=== PATIENT | female | born 1975 | race Two or more races ===

== ENCOUNTER 2020-07-16 08:28 | Outpatient (REF) | payer MEDICARE, SELFPAY ==
[2020-07-16 12:17] LABS: Influenza A PCR NEGATIVE (Negative); Influenza B PCR NEGATIVE (Negative); Resp Syncy Virus RNA Qual PCR NEGATIVE (Negative); SARS COV2 PCR INHOUSE NEGATIVE (Negative)
== END 2020-07-16 08:29 | disposition home or self-care (01) ==
LOC: HO.LAB 08:28
PROVIDERS: Visit Provider Nurse Practitioner Family
DX: R05 Cough (principal); Z20.828 Contact with and (suspected) exposure to other viral communicable diseases
CPT/HCPCS: 0241U

== ENCOUNTER 2020-07-16 08:36 | Outpatient (REF) | payer MEDICARE, SELFPAY ==
--- NOTE | 2020-07-16 08:40 | XR_ITS ---
EXAMINATION: XR CHEST CLINICAL INFORMATION: Cough. COMPARISON: Chest radiographs dated 06/04/2017. TECHNIQUE: 2 views of the chest were obtained. FINDINGS: No significant abnormality is noted involving the heart, lungs, mediastinum, bony thorax or soft tissues. XR/XR chest 2V IMPRESSION: No acute cardiopulmonary process.
== END 2020-07-16 08:37 | disposition home or self-care (01) ==
LOC: HO.HMGCX 08:36
PROVIDERS: PCP Internal Medicine; Visit Provider Nurse Practitioner Family
DX: R05 Cough (principal)
CPT/HCPCS: 71046

== ENCOUNTER 2020-10-02 15:52 | Outpatient (REF) | payer MEDICARE, SELFPAY ==
--- NOTE | 2020-10-02 17:40 | PFT_ITS ---
Forced vital capacity, FEV1, [id number], and MVV are all normal. Post bronchodilator therapy, there is no significant change. Total lung capacity and residual volume normal. Diffusion capacity normal. CONCLUSION: Normal pulmonary function test. MD MELODIE Smith/[facility] / [id number]
== END 2020-10-02 15:53 | disposition home or self-care (01) ==
LOC: HO.RESP 15:52
PROVIDERS: PCP Internal Medicine; Visit Provider Internal Medicine
DX: R05 Cough (principal)
CPT/HCPCS: 94060; 94727; 94729

== ENCOUNTER 2020-10-16 12:55 | Outpatient (REF) | payer OTHER, SELFPAY ==
--- NOTE | 2020-10-16 | PFT_ITS ---
SPIROMETRY: FEV1 of 104% of predicted at 2.99 L. FVC 91% of predicted at 3.21 L. FEV1 to FVC ratio of 0.93. No bronchodilator response. METHACHOLINE CHALLENGE TEST: The patient had no significant change in FEV1 over the whole range of administered concentration of methacholine. IMPRESSION: Normal spirometry with no bronchodilator response. Negative methacholine challenge test. MD RON Harden/[facility] / [id number]
== END 2020-10-16 12:56 | disposition home or self-care (01) ==
LOC: HO.RESP 12:55
PROVIDERS: PCP Internal Medicine; Visit Provider Hospitalist
DX: R05 Cough (principal)
CPT/HCPCS: 94070

== ENCOUNTER 2022-05-31 14:06 | Outpatient (REF) | payer OTHER, SELFPAY ==
[2022-06-03 08:57] LABS: HPV mRNA E6/E7 rflx Not Detected (Not Detected)
== END 2022-05-31 14:07 | disposition home or self-care (01) ==
LOC: HO.LNP 14:06
PROVIDERS: Visit Provider Internal Medicine
DX: Z01.419 Encounter for gynecological examination (general) (routine) without abnormal findings (principal); E66.9 Obesity, unspecified
CPT/HCPCS: 87624; 88142

== ENCOUNTER 2022-06-18 15:40 | Outpatient (REF) | payer OTHER, SELFPAY ==
--- NOTE | ~2022-06-18 | MM_ITS ---
EXAMINATION: MM SCREENING DIGITAL BREAST TOMOSYNTHESIS, BILATERAL CLINICAL INFORMATION: Screening. Asymptomatic. No known family history breast cancer. Age 47. No prior breast imaging. The lifetime risk of breast cancer based on the Tyrer-Cuzick Model is 11%. COMPARISON: None (current study represents initial baseline exam). TECHNIQUE: Digital breast tomosynthesis is performed in both the craniocaudal and mediolateral oblique views along with computer-aided detection (CAD). Synthesized 2D images are generated from the tomosynthesis. FINDINGS: There are scattered areas of fibroglandular density (ACR BI-RADS breast composition Category b). Breast tissue composition borders on heterogeneously dense. There is fine fibronodular parenchymal pattern. No significant mass. No architectural abnormality or abnormal calcifications. The axilla and skin contours are unremarkable. MM/MM tomosynthesis screening BI IMPRESSION: No mammographic evidence of malignancy. ASSESSMENT: BI-RADS 2: Benign RECOMMENDATION: Routine annual mammography screening. This patient's information was entered into a reminder system with a target due date for their next mammogram.
== END 2022-06-18 15:41 | disposition home or self-care (01) ==
LOC: HO.MAMMO 15:40
PROVIDERS: PCP Internal Medicine; Visit Provider Internal Medicine
DX: Z12.31 Encounter for screening mammogram for malignant neoplasm of breast (principal)
CPT/HCPCS: 77063; 77067

== ENCOUNTER 2022-08-12 08:46 | Outpatient (REF) | payer OTHER, SELFPAY ==
[2022-08-12 11:31] LABS: MANUAL DIFF FLAG NO
[2022-08-12 11:45] LABS: Basophils Absolute Auto 0.1 X10*3/uL (0.0-0.2); Basophils Percent Auto 0.6 % (0-2); Eosinophils Absolute Auto 0.2 X10*3/uL (0.0-0.4); Eosinophils Percent Auto 2.5 % (0-4); Hematocrit 41.3 % (37.0-47.0); Hemoglobin 13.3 g/dl (12.0-16.0); Imm Gran Abs Auto 0.03 X10*3/uL (0.00-0.03); Imm Gran Pct Auto 0.3 % (0.0-0.4); Lymphocytes Absolute Auto 3.1 X10*3/uL (1.2-4.9); Lymphocytes Percent Auto 34.8 % (20-40); Mean Corpuscular HGB Conc 32.2 g/dl (31.0-35.0); Mean Corpuscular Hemoglobin 26.5 pg (27.0-33.0); Mean Corpuscular Volume 82.4 fL (80.0-98.0); Mean Platelet Volume 9.7 fL (9.4-12.3); Monocytes Absolute Auto 0.4 X10*3/uL (0.1-1.2); Monocytes Percent Auto 4.4 % (2-11); Neutrophils Absolute Auto 5.1 x10*3/uL (2.0-8.3); Neutrophils Percent Auto 57.4 % (45-73); Platelet Count 308 X10*3/uL (160-400); Red Blood Count 5.01 X10*6/uL (4.20-5.50); Red Cell Distribution Width 14.6 % (11.0-16.0); White Blood Count 8.9 X10*3/uL (4.8-10.8)
[2022-08-12 12:18] LABS: Alanine Aminotransferase 103 U/L (0-31); Anion Gap 11 (12-20); Aspartate Amino Transferase 98 U/L (5-31); Blood Urea Nitrogen 9 mg/dL (9-16); Calcium 9.1 mg/dL (8.4-10.2); Carbon Dioxide 27 mmol/L (22-29); Chloride 106 mmol/L (96-108); Cholesterol 188 mg/dL; Estimated Glomerular Filt Rate > 60; Glucose Fasting 115 mg/dL (60-99); HDL Cholesterol 36 mg/dL; LDL Cholesterol Calculated 129 mg/dl; Potassium 3.9 mmol/L (3.3-5.1); Sodium 140 mmol/L (135-145); Triglycerides 118 mg/dL; Vitamin D 25-OH Total 15.6 ng/mL (>30)
== END 2022-08-12 08:47 | disposition home or self-care (01) ==
LOC: HO.HMGCLDS 08:46
PROVIDERS: PCP Internal Medicine; Visit Provider Internal Medicine
DX: Z00.01 Encounter for general adult medical examination with abnormal findings (principal); E66.9 Obesity, unspecified
CPT/HCPCS: 36415; 80048; 80061; 82306; 84450; 84460; 85025

== ENCOUNTER 2022-08-24 14:35 | Emergency (ER) | payer OTHER, SELFPAY ==
--- NOTE | ~2022-08-24 | US_ITS ---
EXAMINATION: US ABDOMEN COMPLETE CLINICAL INFORMATION: Right upper and lower quadrant pain. Bladder pressure.. COMPARISON: CT from 05/19/2015 TECHNIQUE: Real-time imaging of the abdominal viscera. FINDINGS: PANCREAS: The pancreatic head is unremarkable. The body and tail are obscured by gas. ABDOMINAL AORTA: The proximal, mid, and distal segments are normal in caliber. INFERIOR VENA CAVA: Visualized portions are normal. LIVER: The liver is normal in size. The liver contour is normal. There is diffuse increased liver parenchymal echogenicity, consistent with hepatic steatosis. No focal hepatic lesion. There is no intrahepatic biliary duct dilatation seen. GALLBLADDER: The gallbladder is likely stone filled. No wall thickening or pericholecystic fluid. COMMON BILE DUCT: Normal in caliber measuring 0.6 cm in diameter. RIGHT KIDNEY: Normal. No hydronephrosis. No renal calculi or focal parenchymal lesions. The kidney measures 11.8 cm in maximum dimension. LEFT KIDNEY: Normal. No hydronephrosis. No renal calculi or focal parenchymal lesions. The kidney measures 11.2 cm in maximum dimension. SPLEEN: Normal. The spleen measures 10.3 cm in maximum dimension. FREE FLUID: None. US/US abdomen complete IMPRESSION: 1. Hepatic steatosis. 2. Stone filled gallbladder. No inflammatory changes of the gallbladder.
[2022-08-24 14:54] VITALS: BP 144/98; PULSE 88; RESP 20; TEMP 36.7; O2SAT 100; BMI 37.3
--- NOTE | 2022-08-24 14:55 | ED.FEMALEGU ---
HPI - Female Genitourinary General Chief complaint: General Medical <Mary Espinosa CNP - Last Filed: 08/24/22 14:59> Stated complaint: bladder issue <Mary Espinosa CNP - Last Filed: 08/24/22 14:59> Time Seen by Provider: 08/24/22 16:57 <Mary Espinosa CNP - Last Filed: 08/24/22 14:59> Source: patient <SIOBHAN Wilder - Last Filed: 08/24/22 17:36> Mode of arrival: ambulatory <SIOBHAN Wilder - Last Filed: 08/24/22 17:36> Limitations: no limitations <SIOBHAN Wilder Last Filed: 08/24/22 17:36> History of Present Illness HPI Narrative: Patient is a 47 year old assigned female at with no reported medical history presenting to the emergency department today with pain with urination and lower abdominal pain. Patient states that she has been having lower abdominal pain and pain with urination for the last few days. Patient denies any dizziness, lightheadedness, nausea, vomiting, fever, chills, blurry vision, double vision, loss of vision, chest pain, difficulty breathing, shortness of breath, back pain, night sweats, increased urinary frequency, increased urinary urgency, blood in her urine or stool, syncope or a near syncopal episode, recent trauma or falls, bowel incontinence, bladder incontinence, bowel retention, bladder retention, or any other complaints at this time. <SIOBHAN Wilder - Last Filed: 08/24/22 17:36> MD elicited complaint: dysuria <SIOBHAN Wilder - Last Filed: 08/24/22 17:36> Onset (ago): day(s) <SIOBHAN Wilder - Last Filed: 08/24/22 17:36> Severity: mild <SIOBHAN Wilder Last Filed: 08/24/22 17:36> Severity scale (1-10): 2 <SIOBHAN Wilder Last Filed: 08/24/22 17:36> Vaginal discharge: none <SIOBHAN Wilder Last Filed: 08/24/22 17:36> Vaginal bleeding: none <SIOBHAN Wilder Last Filed: 08/24/22 17:36> Urinary symptoms: Dysuria <SIOBHAN Wilder - Last Filed: 08/24/22 17:36> Exacerbating factors: none <SIOBHAN Wilder - Last Filed: 08/24/22 17:36> Relieving factors: none <SIOBHAN Wilder - Last Filed: 08/24/22 17:36> Associated symptoms: abdominal pain <SIOBHAN Wilder - Last Filed: 08/24/22 17:36> Related Data Home medications: Home Medications Medication Instructions Recorded Confirmed omeprazole 20 mg capsule,delayed 20 mg PO DAILY 04/25/20 08/12/20 release Previous Rx's Medication Instructions Recorded albuterol sulfate 90 mcg/actuation 2 puff inhalation Q4-6H PRN 06/18/21 aerosol inhaler shortness of breath or wheezing #6.7 grams phentermine 37.5 mg tablet 18.75 mg PO DAILY #30 tabs 08/16/22 sulfamethoxazole 800 1 tab PO Q12H 3 days #6 tabs 08/16/22 mg-trimethoprim 160 mg tablet (Bactrim DS) cephalexin 500 mg capsule 500 mg PO Q6H 7 days #28 caps 08/24/22 phenazopyridine 100 mg tablet 100 mg PO TID PRN pain #7 tabs 08/24/22 (Pyridium) <Mary Espinosa CNP - Last Filed: 08/24/22 14:59> Allergies/Adverse reactions: Allergies Allergy/AdvReac Type Severity Reaction Status Date / Time No Known Allergies Allergy Unknown Verified 08/24/22 00:38 <Mary Espinosa CNP - Last Filed: 08/24/22 14:59> Review of Systems Constitutional: Constitutional: Reports no additional constitutional complaints, Denies chills, Denies fever(s) and Denies night sweats <SIOBHAN Wilder - Last Filed: 08/24/22 17:36> Eyes: Eyes: Reports no additional eye complaints, Denies blurry vision, Denies change in vision, Denies diplopia, Denies eye discharge, Denies loss of vision and Denies eye pain <SIOBHAN Wilder Last Filed: 08/24/22 17:36> ENT: Denies dizziness <SIOBHAN Wilder Last Filed: 08/24/22 17:36> Cardiovascular: Cardiovascular: Reports no additional cardiovascular complaints, Denies chest pain, Denies lightheadedness, Denies Loss of Consciousness and Denies dyspnea <SIOBHAN Wilder Last Filed: 08/24/22 17:36> Respiratory: Respiratory: Reports no additional respiratory complaints and Denies dyspnea <SIOBHAN Wilder Last Filed: 08/24/22 17:36> Gastrointestinal: Gastrointestinal: Reports no additional gastrointestinal complaints, Reports abdominal pain, Denies melena, Denies hematochezia, Denies change in bowel habits and Denies change in stool character <SIOBHAN Wilder - Last Filed: 08/24/22 17:36> Genitourinary: Genitourinary: Denies hematuria, Denies urinary frequency, Reports dysuria, Denies urinary incontinence, Denies urinary hesitancy and Denies urinary urgency <SIOBHAN Wilder Last Filed: 08/24/22 17:36> Musculoskeletal: Musculoskeletal: Reports no additional musculoskeletal complaints, Denies numbness and Denies tingling <SIOBHAN Wilder Last Filed: 08/24/22 17:36> Neurologic: Denies dizziness, Denies loss of vision, Denies numbness and Denies tingling <SIOBHAN Wilder Last Filed: 08/24/22 17:36> Psychiatric: Psychiatric: Reports no additional psychiatric complaints <SIOBHAN Wilder Last Filed: 08/24/22 17:36> Endocrine: Endocrine: Reports no additional endocrine complaints <SIOBHAN Wilder Last Filed: 08/24/22 17:36> Hematologic/Lymphatic: Hematologic/Lymphatic: Reports no additional hematologic/lymphatic complaints <SIOBHAN Wilder Last Filed: 08/24/22 17:36> Allergic/Immunologic: Allergic/Immunologic: Reports no additional allergic/immunologic complaints <SIOBHAN Wilder Last Filed: 08/24/22 17:36> PMFSH Past Medical History Attestation statement: The following information was validated with the patient. <SIOBHAN Wilder Last Filed: 08/24/22 17:36> Source: old records reviewed and nursing notes reviewed <SIOBHAN Wilder - Last Filed: 08/24/22 17:36> Medical History: Medical History Dermatitis of vulva Elevated liver transaminase level Family history of gallstones Impaired fasting glucose Skin tag of female perineum <Mary Espinosa CNP - Last Filed: 08/24/22 14:59> Surgical History: Surgical History Hx of appendectomy <Mary Espinosa CNP - Last Filed: 08/24/22 14:59> Family History Family History: Family History Father Diabetes mellitus HTN (hypertension) Hyperlipidemia Acute myocardial infarction Esophageal cancer Mother Depression Mental health disorder <Mary Espinosa CNP - Last Filed: 08/24/22 14:59> Social History Social History: Social History Housing: House Alcohol intake: never Patient Tobacco Use Status: Never used Tobacco Smoked in Last 30 Days: No e-Cigarette/Vaping Use: Never Used Use of substances other than those prescribed or required for medical reasons: No Any prior treatment program specific to substance use: No Advance Directives: No Advance Directives Information Provided: No Patient : No Current occupational status: employed Cognitive needs: No Hearing needs: No Vision needs: No <Mary Espinosa CNP - Last Filed: 08/24/22 14:59> Physical Exam Vital Signs: Vital Signs: Last Vital Signs Temp 98.0 F 08/24/22 14:54 Pulse 88 08/24/22 14:54 Resp 20 08/24/22 14:54 BP 144/98 H 08/24/22 14:54 Pulse Ox 100 08/24/22 14:54 O2 Del Method 08/24/22 14:54 BMI result Body Mass Index 37.3 <Mary Espinosa CNP - Last Filed: 08/24/22 14:59> Vital Signs: Last Vital Signs Temp 98.0 F 08/24/22 14:54 Pulse 88 08/24/22 14:54 Resp 20 08/24/22 14:54 BP 144/98 H 08/24/22 14:54 Pulse Ox 100 08/24/22 14:54 O2 Del Method 08/24/22 14:54 BMI result Body Mass Index 37.3 <SIOBHAN Wilder - Last Filed: 08/24/22 17:36> Const: General: cooperative, no acute distress, alert and awake <SIOBHAN Wilder - Last Filed: 08/24/22 17:36> Nutritional Appearance: well nourished <SIOBHAN Wilder - Last Filed: 08/24/22 17:36> Orientation/consciousness: patient oriented x3 <SIOBHAN Wilder - Last Filed: 08/24/22 17:36> Limitations: no limitations <SIOBHAN Wilder - Last Filed: 08/24/22 17:36> HEENT: Head: Yes normal to inspection and Yes atraumatic <SIOBHAN Wilder - Last Filed: 08/24/22 17:36> Ears: hearing grossly normal bilaterally and external ears normal <SIOBHAN Wilder - Last Filed: 08/24/22 17:36> General nose exam: Normal external nose present, no nasal discharge noted and no epistaxis <SIOBHAN Wilder - Last Filed: 08/24/22 17:36> Face and sinus: Yes normal facial exam, No abrasion and No laceration <SIOBHAN Wilder - Last Filed: 08/24/22 17:36> Mouth: Normal oral and palatal mucosa present, no drooling and no muffled voice <SIOBHAN Wilder - Last Filed: 08/24/22 17:36> Eyes: General: appearance normal, both eyes and all related structures <SIOBHAN Wilder - Last Filed: 08/24/22 17:36> Periorbital: periorbital findings normal <SIOBHAN Wilder - Last Filed: 08/24/22 17:36> Eyelids: Yes eyelids normal <SIOBHAN Wilder - Last Filed: 08/24/22 17:36> Conjunctivae: conjunctivae normal <SIOBHAN Wilder - Last Filed: 08/24/22 17:36> Pupils: Equal, round and reactive pupils present <SIOBHAN Wilder - Last Filed: 08/24/22 17:36> EOM: EOMs intact bilaterally <Janie Galeas FL - Last Filed: 08/24/22 17:36> Neck: Neck: Yes normal visual inspection, Yes full ROM and Yes no lymphadenopathy <Janie Galeas FL - Last Filed: 08/24/22 17:36> Chest: Chest palpation & inspection: normal inspection of the chest <Janie Galeas FL - Last Filed: 08/24/22 17:36> Resp: Effort & Inspection: normal respiratory effort and able to speak in complete sentences <Janie Galeas FL - Last Filed: 08/24/22 17:36> Auscultation: clear to auscultation bilaterally <Janie Galeas FL - Last Filed: 08/24/22 17:36> Cardio: Rate: regular rate <Janie Galeas FL - Last Filed: 08/24/22 17:36> Rhythm: regular rhythm <Janie Galeas FL - Last Filed: 08/24/22 17:36> GI: Inspection: Yes normal to inspection <Janie Galeas FL - Last Filed: 08/24/22 17:36> Palpation (GI): Soft to palpation, not firm, nontender and no guarding <Janie Galeas FL - Last Filed: 08/24/22 17:36> Neuro: General: patient oriented x3 and moves all extremities <Janie Galeas FL - Last Filed: 08/24/22 17:36> Cranial nerves: Yes Equal, round and reactive pupils present <Janie Galeas FL - Last Filed: 08/24/22 17:36> Cognition (Neuro): normal cognition <Janie Galeas FL - Last Filed: 08/24/22 17:36> Motor exam (neuro): 5/5 motor strength present throughout <Janie Galeas FL - Last Filed: 08/24/22 17:36> Sensory Exam: Normal double simultaneous stimulation for sensation <Janie Galeas FL - Last Filed: 08/24/22 17:36> Coordination: [id number] test normal <Janie Galeas FL - Last Filed: 08/24/22 17:36> Extrem: General: Yes normal to inspection, Yes full ROM and Yes capillary refill normal <Janie SIOBHAN Galeas - Last Filed: 08/24/22 17:36> Psych: Appearance: grossly normal <Janie GaleasSIOBHAN saucedo - Last Filed: 08/24/22 17:36> Mental Status: mental status grossly normal <Janiecharlie CravenSIOBHAN saucedo - Last Filed: 08/24/22 17:36> Affect: normal affect <SIOBHAN Wilder - Last Filed: 08/24/22 17:36> Attitude: cooperative <SIOBHAN Wilder - Last Filed: 08/24/22 17:36> Thought process: Normal thought process present <SIOBHAN Wilder - Last Filed: 08/24/22 17:36> Thought content: Normal thought content present <SIOBHAN Wilder - Last Filed: 08/24/22 17:36> Insight: Good insight present (Psych) <SIOBHAN Wilder - Last Filed: 08/24/22 17:36> Course Course Course Narrative: Since 08/15/2022 with pressure to bladder feels like its going to explode, with urinary urgency, saw PCP advised no UTI from specimen, but given RX and ABX x 3 days. No improvement with ABX. Denies fevers, chills, nausea, vomiting, hematuria. Today with RUQ pain, radiating into back. Reports hx appendectomy. Plan: urinalysis, ur preg, US ABD; gallbladder and kidney, labs <Mary Espinosa CNP - Last Filed: 08/24/22 14:59> Medical Decision Making Medical Decision Making MDM Narrative: Patient is a 47 year old assigned female at with no reported medical history presenting to the emergency department today with lower abdominal pain and pain with urination. Patient's physical exam was unremarkable. Patient's blood work showed a slight elevation in WBC count of 11.2 however, this is likely due to a stress reaction. Patient's urine showed an acute urinary tract infection. Patient's abdominal US showed gallstones but was otherwise unremarkable. I explained my physical exam findings as well as all test results to the patient. I answered all questions asked by the patient. I stressed the importance of the patient taking her medication as prescribed. I stressed the importance of the patient following up with her primary care provider. I stressed the importance of the patient returning to the emergency department immediately if her symptoms were to worsen or if she were to develop any dizziness, shortness of breath, difficulty breathing, chest pain, blurry vision, loss of vision, nausea, vomiting, abdominal pain, fever, chills, back pain, or any other complaints. Patient verbalized agreement and understanding with this treatment plan and discharge. <SIOBHAN Wilder - Last Filed: 08/24/22 17:36> Differential Diagnosis Differential Diagnoses: The differential diagnosis associated with the presentation includes <SIOBHAN Wilder - Last Filed: 08/24/22 17:36> dysuria, UTI <SIOBHAN Wilder - Last Filed: 08/24/22 17:36> Lab Data MDM Lab Attestation statement: I reviewed the patient's lab results. <SIOBHAN Wilder - Last Filed: 08/24/22 17:36> Result Diagrams: 08/24/22 15:05 08/24/22 15:05 <Mary Espinosa CNP - Last Filed: 08/24/22 14:59> Labs: Lab Results 08/24/22 08/24/22 08/24/22 Range/Units 15:05 15:05 16:23 WBC 11.2 H (4.8-10.8) X10*3/uL RBC 5.04 (4.20-5.50) X10*6/uL Hgb 13.5 (12.0-16.0) g/dl Hct 41.2 (37.0-47.0) % MCV 81.7 (80.0-98.0) fL MCH 26.8 L (27.0-33.0) pg MCHC 32.8 (31.0-35.0) g/dl RDW 14.8 (11.0-16.0) % Plt Count 297 (160-400) X10*3/uL MPV 9.2 L (9.4-12.3) fL Immature Gran % (Auto) 0.3 (0.0-0.4) % Neut % (Auto) 62.2 (45-73) % Lymph % (Auto) 30.5 (20-40) % [place] % (Auto) 5.5 (2-11) % Eos % (Auto) 1.1 (0-4) % Baso % (Auto) 0.4 (0-2) % Lymph # (Auto) 3.4 (1.2-4.9) X10*3/uL [place] # (Auto) 0.6 (0.1-1.2) X10*3/uL Eos # (Auto) 0.1 (0.0-0.4) X10*3/uL Baso # (Auto) 0.1 (0.0-0.2) X10*3/uL Abs Immat Gran (auto) 0.03 (0.00-0.03) X10*3/uL Absolute Neuts (auto) 7.0 (2.0-8.3) x10*3/uL Absolute Nucleated RBC 0.000 (0.0-0.012) X10*3/uL Nucleated RBC % (auto) 0.0 (0.0-0.2) /100WBC Sodium 141 (135-145) mmol/L Potassium 3.9 (3.3-5.1) mmol/L Chloride 106 (96-108) mmol/L Carbon Dioxide 25 (22-29) mmol/L Anion Gap 14 (12-20) BUN 9 (9-16) mg/dL Creatinine 0.63 (0.5-1.4) mg/dL Estim Creat Clear Calc 118.8 Estimated GFR > 60 Random Glucose 89 (60-115) mg/dL Calcium 9.2 (8.4-10.2) mg/dL Total Bilirubin 0.4 (0.0-1.0) mg/dL AST 73 H (5-31) U/L ALT 95 H (0-31) U/L Alkaline Phosphatase 176 H (39-117) U/L Total Protein 7.6 (6.5-8.0) g/dL Albumin 4.0 (3.5-5.0) g/dL Lipase 36 (8-78) U/L Urine Color Yellow Urine Appearance Cloudy Urine pH 5.5 (5.0-9.0) Ur Specific [place] 1.020 (1.005-1.025) Urine Protein Trace (Neg-Trace) mg/dL Urine Glucose (UA) Negative (Negative) mg/dL Urine Ketones Negative (Negative) mg/dL Urine Blood Moderate (2+) H (Negative) Urine Nitrite Negative (Negative) Ur Leukocyte Esterase Negative (Negative) Urine RBC 11-20 H (0-2) /HPF Urine WBC 0-5 (0-5) /HPF Ur Squamous Epith Cells 6-10 (0-2) /HPF Urine Bacteria 1+ (None Seen) Hyaline Casts 3-5 (0-2) /LPF Urine Test (NEGATIVE) 08/24/22 Range/Units 16:23 WBC (4.8-10.8) X10*3/uL RBC (4.20-5.50) X10*6/uL Hgb (12.0-16.0) g/dl Hct (37.0-47.0) % MCV (80.0-98.0) fL MCH (27.0-33.0) pg MCHC (31.0-35.0) g/dl RDW (11.0-16.0) % Plt Count (160-400) X10*3/uL MPV (9.4-12.3) fL Immature Gran % (Auto) (0.0-0.4) % Neut % (Auto) (45-73) % Lymph % (Auto) (20-40) % [place] % (Auto) (2-11) % Eos % (Auto) (0-4) % Baso % (Auto) (0-2) % Lymph # (Auto) (1.2-4.9) X10*3/uL [place] # (Auto) (0.1-1.2) X10*3/uL Eos # (Auto) (0.0-0.4) X10*3/uL Baso # (Auto) (0.0-0.2) X10*3/uL Abs Immat Gran (auto) (0.00-0.03) X10*3/uL Absolute Neuts (auto) (2.0-8.3) x10*3/uL Absolute Nucleated RBC (0.0-0.012) X10*3/uL Nucleated RBC % (auto) (0.0-0.2) /100WBC Sodium (135-145) mmol/L Potassium (3.3-5.1) mmol/L Chloride (96-108) mmol/L Carbon Dioxide (22-29) mmol/L Anion Gap (12-20) BUN (9-16) mg/dL Creatinine (0.5-1.4) mg/dL Estim Creat Clear Calc Estimated GFR Random Glucose (60-115) mg/dL Calcium (8.4-10.2) mg/dL Total Bilirubin (0.0-1.0) mg/dL AST (5-31) U/L ALT (0-31) U/L Alkaline Phosphatase (39-117) U/L Total Protein (6.5-8.0) g/dL Albumin (3.5-5.0) g/dL Lipase (8-78) U/L Urine Color Urine Appearance Urine pH (5.0-9.0) Ur Specific [place] (1.005-1.025) Urine Protein (Neg-Trace) mg/dL Urine Glucose (UA) (Negative) mg/dL Urine Ketones (Negative) mg/dL Urine Blood (Negative) Urine Nitrite (Negative) Ur Leukocyte Esterase (Negative) Urine RBC (0-2) /HPF Urine WBC (0-5) /HPF Ur Squamous Epith Cells (0-2) /HPF Urine Bacteria (None Seen) Hyaline Casts (0-2) /LPF Urine Test NEGATIVE (NEGATIVE) <Mary Espinosa, NILSA - Last Filed: 08/24/22 14:59> Lab Results 08/24/22 08/24/22 08/24/22 Range/Units 15:05 15:05 16:23 WBC 11.2 H (4.8-10.8) X10*3/uL RBC 5.04 (4.20-5.50) X10*6/uL Hgb 13.5 (12.0-16.0) g/dl Hct 41.2 (37.0-47.0) % MCV 81.7 (80.0-98.0) fL MCH 26.8 L (27.0-33.0) pg MCHC 32.8 (31.0-35.0) g/dl RDW 14.8 (11.0-16.0) % Plt Count 297 (160-400) X10*3/uL MPV 9.2 L (9.4-12.3) fL Immature Gran % (Auto) 0.3 (0.0-0.4) % Neut % (Auto) 62.2 (45-73) % Lymph % (Auto) 30.5 (20-40) % [place] % (Auto) 5.5 (2-11) % Eos % (Auto) 1.1 (0-4) % Baso % (Auto) 0.4 (0-2) % Lymph # (Auto) 3.4 (1.2-4.9) X10*3/uL [place] # (Auto) 0.6 (0.1-1.2) X10*3/uL Eos # (Auto) 0.1 (0.0-0.4) X10*3/uL Baso # (Auto) 0.1 (0.0-0.2) X10*3/uL Abs Immat Gran (auto) 0.03 (0.00-0.03) X10*3/uL Absolute Neuts (auto) 7.0 (2.0-8.3) x10*3/uL Absolute Nucleated RBC 0.000 (0.0-0.012) X10*3/uL Nucleated RBC % (auto) 0.0 (0.0-0.2) /100WBC Sodium 141 (135-145) mmol/L Potassium 3.9 (3.3-5.1) mmol/L Chloride 106 (96-108) mmol/L Carbon Dioxide 25 (22-29) mmol/L Anion Gap 14 (12-20) BUN 9 (9-16) mg/dL Creatinine 0.63 (0.5-1.4) mg/dL Estim Creat Clear Calc 118.8 Estimated GFR > 60 Random Glucose 89 (60-115) mg/dL Calcium 9.2 (8.4-10.2) mg/dL Total Bilirubin 0.4 (0.0-1.0) mg/dL AST 73 H (5-31) U/L ALT 95 H (0-31) U/L Alkaline Phosphatase 176 H (39-117) U/L Total Protein 7.6 (6.5-8.0) g/dL Albumin 4.0 (3.5-5.0) g/dL Lipase 36 (8-78) U/L Urine Color Yellow Urine Appearance Cloudy Urine pH 5.5 (5.0-9.0) Ur Specific [place] 1.020 (1.005-1.025) Urine Protein Trace (Neg-Trace) mg/dL Urine Glucose (UA) Negative (Negative) mg/dL Urine Ketones Negative (Negative) mg/dL Urine Blood Moderate (2+) H (Negative) Urine Nitrite Negative (Negative) Ur Leukocyte Esterase Negative (Negative) Urine RBC 11-20 H (0-2) /HPF Urine WBC 0-5 (0-5) /HPF Ur Squamous Epith Cells 6-10 (0-2) /HPF Urine Bacteria 1+ (None Seen) Hyaline Casts 3-5 (0-2) /LPF Urine Test (NEGATIVE) 08/24/22 Range/Units 16:23 WBC (4.8-10.8) X10*3/uL RBC (4.20-5.50) X10*6/uL Hgb (12.0-16.0) g/dl Hct (37.0-47.0) % MCV (80.0-98.0) fL MCH (27.0-33.0) pg MCHC (31.0-35.0) g/dl RDW (11.0-16.0) % Plt Count (160-400) X10*3/uL MPV (9.4-12.3) fL Immature Gran % (Auto) (0.0-0.4) % Neut % (Auto) (45-73) % Lymph % (Auto) (20-40) % [place] % (Auto) (2-11) % Eos % (Auto) (0-4) % Baso % (Auto) (0-2) % Lymph # (Auto) (1.2-4.9) X10*3/uL [place] # (Auto) (0.1-1.2) X10*3/uL Eos # (Auto) (0.0-0.4) X10*3/uL Baso # (Auto) (0.0-0.2) X10*3/uL Abs Immat Gran (auto) (0.00-0.03) X10*3/uL Absolute Neuts (auto) (2.0-8.3) x10*3/uL Absolute Nucleated RBC (0.0-0.012) X10*3/uL Nucleated RBC % (auto) (0.0-0.2) /100WBC Sodium (135-145) mmol/L Potassium (3.3-5.1) mmol/L Chloride (96-108) mmol/L Carbon Dioxide (22-29) mmol/L Anion Gap (12-20) BUN (9-16) mg/dL Creatinine (0.5-1.4) mg/dL Estim Creat Clear Calc Estimated GFR Random Glucose (60-115) mg/dL Calcium (8.4-10.2) mg/dL Total Bilirubin (0.0-1.0) mg/dL AST (5-31) U/L ALT (0-31) U/L Alkaline Phosphatase (39-117) U/L Total Protein (6.5-8.0) g/dL Albumin (3.5-5.0) g/dL Lipase (8-78) U/L Urine Color Urine Appearance Urine pH (5.0-9.0) Ur Specific [place] (1.005-1.025) Urine Protein (Neg-Trace) mg/dL Urine Glucose (UA) (Negative) mg/dL Urine Ketones (Negative) mg/dL Urine Blood (Negative) Urine Nitrite (Negative) Ur Leukocyte Esterase (Negative) Urine RBC (0-2) /HPF Urine WBC (0-5) /HPF Ur Squamous Epith Cells (0-2) /HPF Urine Bacteria (None Seen) Hyaline Casts (0-2) /LPF Urine Test NEGATIVE (NEGATIVE) <SIOBHAN Wilder - Last Filed: 08/24/22 17:36> Radiology Impression Radiologist Impression: My interpretation is in agreement with the radiologist's impression of this imaging study. EXAMINATION: US ABDOMEN COMPLETE CLINICAL INFORMATION: Right upper and lower quadrant pain. Bladder pressure.. COMPARISON: CT from 05/19/2015 TECHNIQUE: Real-time imaging of the abdominal viscera. FINDINGS: PANCREAS: The pancreatic head is unremarkable. The body and tail are obscured by gas. ABDOMINAL AORTA: The proximal, mid, and distal segments are normal in caliber. INFERIOR VENA CAVA: Visualized portions are normal. LIVER:? The liver is normal in size. The liver contour is normal. There is diffuse increased liver parenchymal echogenicity, consistent with hepatic steatosis.? No focal hepatic lesion. There is no intrahepatic biliary duct dilatation seen. GALLBLADDER: The gallbladder is likely stone filled. No wall thickening or pericholecystic fluid. COMMON BILE DUCT: Normal in caliber measuring 0.6 cm in diameter. RIGHT KIDNEY: Normal. No hydronephrosis. No renal calculi or focal parenchymal lesions. The kidney measures 11.8 cm in maximum dimension. LEFT KIDNEY: Normal. No hydronephrosis. No renal calculi or focal parenchymal lesions. The kidney measures 11.2 cm in maximum dimension. SPLEEN: Normal. The spleen measures 10.3 cm in maximum dimension. FREE FLUID: None. US/US abdomen complete IMPRESSION: 1.? Hepatic steatosis. 2.? Stone filled gallbladder. No inflammatory changes of the gallbladder. ? Dictated By: Gucci Patrick MD Signed By: Electronically signed by Gucci aPtrick MD 08/24/22 [id number] <SIOBHAN Wilder - Last Filed: 08/24/22 17:36> Discharge Plan Discharge Clinical Impression: UTI (urinary tract infection) <Mary Espinosa CNP - Last Filed: 08/24/22 14:59> Patient Disposition: Home, Self-Care <Mary Espinosa CNP - Last Filed: 08/24/22 14:59> Instructions: Urinary Tract Infection in Women (ED) <Mary Espinosa CNP - Last Filed: 08/24/22 14:59> Additional Instructions: Follow up with your primary care provider. Return to the emergency department immediately if your symptoms worsen or if you develop any dizziness, shortness of breath, difficulty breathing, chest pain, blurry vision, loss of vision, nausea, vomiting, abdominal pain, fever, chills, back pain, or any other complaints. <Mary Espinosa CNP - Last Filed: 08/24/22 14:59> Prescriptions: New cephalexin 500 mg capsule 500 mg PO Q6H 7 Days Qty: 28 0RF phenazopyridine [Pyridium] 100 mg tablet 100 mg PO TID PRN (Reason: pain) Qty: 7 0RF No Action albuterol sulfate 90 mcg/actuation HFA aerosol inhaler 2 puff inhalation Q4-6H PRN (Reason: shortness of breath or wheezing) Qty: 6.7 3RF Rx Instructions: substitution allowed omeprazole 20 mg capsule,delayed release(DR/EC) 20 mg PO DAILY sulfamethoxazole-trimethoprim [Bactrim DS] 800-160 mg tablet 1 tab PO Q12H 3 Days Qty: 6 0RF phentermine 37.5 mg tablet 18.75 mg PO DAILY Qty: 30 0RF Rx Instructions: must administer 30 minutes before or 1-2 hours after breakfast <Mary Espinosa CNP - Last Filed: 08/24/22 14:59> Referrals: Skye Cameron MD [Primary Care Provider] - <Mary Espinosa CNP - Last Filed: 08/24/22 14:59> Interventions: ED Discharge Assessment Last Done: 08/24/22 17:17 <Mary Espinosa CNP - Last Filed: 08/24/22 14:59> Discharge Date/Time: 08/24/22 17:18 <Mary Espinosa CNP - Last Filed: 08/24/22 14:59> Print Language: Scottish <Mary Espinosa CNP - Last Filed: 08/24/22 14:59>
[2022-08-24 15:19] LABS: MANUAL DIFF FLAG NO
[2022-08-24 15:21] LABS: Basophils Absolute Auto 0.1 X10*3/uL (0.0-0.2); Basophils Percent Auto 0.4 % (0-2); Eosinophils Absolute Auto 0.1 X10*3/uL (0.0-0.4); Eosinophils Percent Auto 1.1 % (0-4); Hematocrit 41.2 % (37.0-47.0); Hemoglobin 13.5 g/dl (12.0-16.0); Imm Gran Abs Auto 0.03 X10*3/uL (0.00-0.03); Imm Gran Pct Auto 0.3 % (0.0-0.4); Lymphocytes Absolute Auto 3.4 X10*3/uL (1.2-4.9); Lymphocytes Percent Auto 30.5 % (20-40); Mean Corpuscular HGB Conc 32.8 g/dl (31.0-35.0); Mean Corpuscular Hemoglobin 26.8 pg (27.0-33.0); Mean Corpuscular Volume 81.7 fL (80.0-98.0); Mean Platelet Volume 9.2 fL (9.4-12.3); Monocytes Absolute Auto 0.6 X10*3/uL (0.1-1.2); Monocytes Percent Auto 5.5 % (2-11); Neutrophils Percent Auto 62.2 % (45-73); Platelet Count 297 X10*3/uL (160-400); Red Blood Count 5.04 X10*6/uL (4.20-5.50); Red Cell Distribution Width 14.8 % (11.0-16.0); White Blood Count 11.2 X10*3/uL (4.8-10.8)
[2022-08-24 15:36] LABS: Alanine Aminotransferase 95 U/L (0-31); Alkaline Phosphatase 176 U/L (39-117); Anion Gap 14 (12-20); Aspartate Amino Transferase 73 U/L (5-31); Bilirubin Total 0.4 mg/dL (0.0-1.0); Blood Urea Nitrogen 9 mg/dL (9-16); Calcium 9.2 mg/dL (8.4-10.2); Carbon Dioxide 25 mmol/L (22-29); Chloride 106 mmol/L (96-108); Creatinine Clr Calc Pharmacy 118.8; Estimated Glomerular Filt Rate > 60; Glucose Random 89 mg/dL (60-115); Lipase 36 U/L (8-78); Potassium 3.9 mmol/L (3.3-5.1); Sodium 141 mmol/L (135-145); Total Protein 7.6 g/dL (6.5-8.0)
[2022-08-24 16:38] LABS: Appearance Urine Cloudy; Color Urine Yellow; Glucose Urine UA Negative (Negative); Leukocyte Esterase Urine Negative (Negative); Nitrite Urine Negative (Negative); PH 5.5 (5.0-9.0); UMIC TRIGGER UACC YES; Urine Blood Moderate (2+) (Negative); Urine Ketones Negative (Negative); Urine Protein Trace mg/dL (Neg-Trace)
[2022-08-24 16:39] LABS: UPreg QC Valid YES; Urine Pregnancy NEGATIVE (NEGATIVE)
[2022-08-24 16:43] LABS: Bacteria Urine 1+ (None Seen); WBC Urine 0-5 /HPF (0-5)
== END 2022-08-24 17:18 | disposition home or self-care (01) ==
PROVIDERS: Nurse Practitioner Family; Emergency Provider Student in an Organized Health Care Education/Training Program; PCP Internal Medicine
DX: N39.0 Urinary tract infection, site not specified (principal); R10.11 Right upper quadrant pain; R10.2 Pelvic and perineal pain; Z79.899 Other long term (current) drug therapy
CPT/HCPCS: 36415; 76700; 80053; 81001; 81025; 83690; 85025; 99284

== ENCOUNTER 2022-08-30 22:55 | Emergency (ER) | payer OTHER, SELFPAY ==
--- NOTE | ~2022-08-30 | CT_ITS ---
EXAMINATION: CT ABDOMEN AND PELVIS WITHOUT CONTRAST CLINICAL INFORMATION: Unable to urinate. Question obstructing stone. COMPARISON: 05/19/2015 TECHNIQUE: Multidetector volumetric imaging was performed from the superior aspect of the liver through the pubic symphysis. Sagittal and coronal reformatted images were obtained on the technologist's workstation. This CT examination was performed using dose optimization techniques as appropriate, variously including the following: *Automated exposure control *Adjustment of mA and/or kV according to patient size (this includes techniques or standardized protocols for targeted exams where dose is matched to indication/reason for exam; i.e. extremities or head) *Use of iterative reconstruction technique DLP: 682 mGy-cm FINDINGS: LUNG BASES: The visualized lung bases are unremarkable. LIVER, GALLBLADDER, AND BILIARY TREE: The liver is normal in size and shape with decreased attenuation. No focal hepatic lesion or biliary ductal dilatation is present. The gallbladder is unremarkable with no evidence of radiopaque gallstones, gallbladder wall thickening, or obvious pericholecystic inflammatory changes. PANCREAS: Unremarkable. SPLEEN: Unremarkable. ADRENAL GLANDS: Unremarkable. KIDNEYS AND URETERS: The kidneys are normal in size, shape, and attenuation. No hydronephrosis or hydroureter. There is a 0.4 cm calculus in the distal right ureter, approximately 3 cm proximal to the right ureterovesicular junction. BLADDER: Unremarkable. GASTROINTESTINAL TRACT: The stomach is unremarkable. Normal caliber small bowel. No obstruction. No colonic wall thickening or acute inflammation. The appendix is not seen. No inflammation at the cecum to suggest appendicitis. Scattered diverticulosis. No free air or free fluid. ABDOMINAL WALL: No significant hernia is appreciated. LYMPH NODES: Normal. VASCULAR: Normal caliber aorta. Retroaortic left renal vein. PELVIC VISCERA: The uterus and adnexa are unremarkable. OSSEOUS STRUCTURES: No acute or suspicious osseous abnormality. Bilateral sacroiliitis. CT/CT abdomen pelvis wo IV con IMPRESSION: 1. 0.4 cm distal right ureteral calculus. No hydronephrosis. 2. Hepatic steatosis. Fleischner guidelines were followed.
[2022-08-30 23:03] VITALS: BP 156/101; PULSE 75; RESP 18; TEMP 36.6; O2SAT 100; BMI 37.2
[2022-08-30 23:38] LABS: MANUAL DIFF FLAG NO
[2022-08-30 23:42] LABS: Basophils Absolute Auto 0.1 X10*3/uL (0.0-0.2); Basophils Percent Auto 0.6 % (0-2); Eosinophils Absolute Auto 0.2 X10*3/uL (0.0-0.4); Eosinophils Percent Auto 1.9 % (0-4); Hematocrit 40.8 % (37.0-47.0); Hemoglobin 13.6 g/dl (12.0-16.0); Imm Gran Abs Auto 0.02 X10*3/uL (0.00-0.03); Imm Gran Pct Auto 0.2 % (0.0-0.4); Lymphocytes Absolute Auto 4.3 X10*3/uL (1.2-4.9); Lymphocytes Percent Auto 36.2 % (20-40); Mean Corpuscular HGB Conc 33.3 g/dl (31.0-35.0); Mean Corpuscular Hemoglobin 27.5 pg (27.0-33.0); Mean Corpuscular Volume 82.6 fL (80.0-98.0); Mean Platelet Volume 9.2 fL (9.4-12.3); Monocytes Absolute Auto 0.7 X10*3/uL (0.1-1.2); Monocytes Percent Auto 5.7 % (2-11); Neutrophils Absolute Auto 6.6 x10*3/uL (2.0-8.3); Neutrophils Percent Auto 55.4 % (45-73); Platelet Count 284 X10*3/uL (160-400); Red Blood Count 4.94 X10*6/uL (4.20-5.50); Red Cell Distribution Width 14.6 % (11.0-16.0); White Blood Count 11.9 X10*3/uL (4.8-10.8)
[2022-08-30 23:49] LABS: Appearance Urine Clear; Color Urine Yellow; Glucose Urine UA Negative (Negative); Leukocyte Esterase Urine Negative (Negative); Nitrite Urine Negative (Negative); PH 5.5 (5.0-9.0); Specific Gravity - Urine 1.015 (1.005-1.025); UMIC TRIGGER UACC YES; Urine Blood Small (1+) (Negative); Urine Ketones Negative (Negative); Urine Protein Negative (Neg-Trace)
[2022-08-31 00:05] LABS: Alanine Aminotransferase 86 U/L (0-31); Albumin Level 3.9 g/dL (3.5-5.0); Alkaline Phosphatase 164 U/L (39-117); Anion Gap 14 (12-20); Aspartate Amino Transferase 72 U/L (5-31); Bilirubin Total 0.4 mg/dL (0.0-1.0); Blood Urea Nitrogen 8 mg/dL (9-16); Calcium 9.3 mg/dL (8.4-10.2); Carbon Dioxide 25 mmol/L (22-29); Chloride 104 mmol/L (96-108); Creatinine Clr Calc Pharmacy 118.6; Estimated Glomerular Filt Rate > 60; Glucose Random 92 mg/dL (60-115); HCG Quantitative < 2 mIU/mL; Sodium 139 mmol/L (135-145); Total Protein 7.4 g/dL (6.5-8.0)
[2022-08-31 00:07] LABS: RBC Urine 0-2 /HPF (0-2); WBC Urine 0-5 /HPF (0-5)
[2022-08-31 00:08] LABS: Bacteria Urine Trace (None Seen); Hyaline Casts Urine 0-2 /LPF (0-2)
[2022-08-31 00:35] VITALS: BP 149/74; PULSE 103; RESP 16; TEMP 36.5; O2SAT 96
--- NOTE | 2022-08-31 00:46 | ED.FEMALEGU ---
HPI - Female Genitourinary General Chief complaint: Urogenital-Female Stated complaint: Cant urinate Time Seen by Provider: 08/31/22 00:22 Source: patient Mode of arrival: ambulatory Limitations: no limitations History of Present Illness HPI Narrative: 47-year-old female with no known past medical history presented with increases frequency urination with suprapubic pain and low back pain that is constant for the past 10 days, patient was seen in the emergency department last week for similar symptoms had ultrasound of the abdomen which only significant for cholelithiasis patient was diagnosed with UTI and was discharged home with Keflex and Pyridium, patient reported that symptoms persist with no improvement after finishing the course of antibiotic. no fever, no chills, no nausea, no vomiting, no diarrhea, no loss of weight. Patient is sexually active with 1 partner for the past 26 years with no vaginal discharge patient is not concerned about STDs. Related Data Home Medications Medication Instructions Recorded Confirmed omeprazole 20 mg capsule,delayed 20 mg PO DAILY 04/25/20 08/12/20 release Previous Rx's Medication Instructions Recorded albuterol sulfate 90 mcg/actuation 2 puff inhalation Q4-6H PRN 06/18/21 aerosol inhaler shortness of breath or wheezing #6.7 grams phentermine 37.5 mg tablet 18.75 mg PO DAILY #30 tabs 08/16/22 sulfamethoxazole 800 1 tab PO Q12H 3 days #6 tabs 08/16/22 mg-trimethoprim 160 mg tablet (Bactrim DS) cephalexin 500 mg capsule 500 mg PO Q6H 7 days #28 caps 08/24/22 phenazopyridine 100 mg tablet 100 mg PO TID PRN pain #7 tabs 08/24/22 (Pyridium) oxycodone 5 mg tablet 5 mg PO BID PRN pain #14 tabs 08/31/22 Allergies Allergy/AdvReac Type Severity Reaction Status Date / Time No Known Allergies Allergy Unknown Verified 08/24/22 00:38 Review of Systems Review of Systems: All other systems are reviewed and are negative Constitutional: Reports as per HPI and Reports no additional constitutional complaints Eyes: Reports as per HPI and Reports no additional eye complaints Reports system reviewed and no additional complaints, except as documented Cardiovascular: Reports as per HPI and Reports no additional cardiovascular complaints Respiratory: Reports as per HPI and Reports no additional respiratory complaints Gastrointestinal: Reports as per HPI and Reports no additional gastrointestinal complaints Genitourinary: Reports no additional female genitourinary complaints Musculoskeletal: Reports no additional musculoskeletal complaints Skin/Breast: Reports system reviewed and no additional complaints, except as docu Psychiatric: Reports no additional psychiatric complaints Endocrine: Reports no additional endocrine complaints Hematologic/Lymphatic: Reports no additional hematologic/lymphatic complaints Allergic/Immunologic: Reports no additional allergic/immunologic complaints Reports system reviewed and no additional complaints, except as documented and Reports Abnormal speech present. [facility] Past Medical History Medical History Dermatitis of vulva Elevated liver transaminase level Family history of gallstones Impaired fasting glucose Skin tag of female perineum Surgical History Hx of appendectomy Family History Family History Father Diabetes mellitus HTN (hypertension) Hyperlipidemia Acute myocardial infarction Esophageal cancer Mother Depression Mental health disorder Social History Social History Housing: House Alcohol intake: never Patient Tobacco Use Status: Never used Tobacco e-Cigarette/Vaping Use: Never Used Advance Directives: No Advance Directives Information Provided: Yes Current occupational status: employed Cognitive needs: No Hearing needs: No Vision needs: No Physical Exam Vital Signs: Vital Signs: Last Vital Signs Temp 97.4 F 08/31/22 02:00 Pulse 76 08/31/22 02:00 Resp 16 08/31/22 02:00 BP 138/74 08/31/22 02:00 Pulse Ox 96 08/31/22 02:00 O2 Del Method 08/31/22 02:00 BMI result Body Mass Index 37.2 vital signs have been reviewed as appeared to be correct. Blood pressure normal. Heart rate normal. Respiration rate normal. Temperature normal. Oxygen saturation normal. Appearance: Alert. Oriented X3. No acute distress. Head: Normal external exam. Normocephalic. Atraumatic. No Blackwell signs noted. No raccoon eyes noted Eyes: PERRLA. EOMI. Conjunctiva and sclera normal. Eyelids normal. ENT: TM's Normal. Pharynx normal. Uvula midline. Moist mucous membranes. No trismus noted. No drooling noted. No muffled voice noted. Neck: Normal inspection. Neck supple. FROM. No adenopathy. Thyroid Normal. No meningeal signs. No neck mass noted. CVS: Normal heart rate and rhythm. Heart sound normal. No murmurs noted. Pulses normal throughout. Respiratory: No respiratory distress. Painless inspiration. Breath sounds normal. No wheezes/rales/rhonchi noted. Chest nontender. No accessory muscle usage noted or decreased air movement noted. Abdomen: Soft and nontender. Bowel sounds normal in all 4 quadrants. No distention noted. No organomegaly noted. No visible injury noted. Back: No CVA tenderness. Full range of motion noted. Skin: Skin warm and dry. Normal skin color. Normal skin turgor. No rashes/lesions/lacerations noted. Extremities: No lower extremity edema. Extremities exhibit normal range of motion. Extremities nontender. Neuro: Oriented X 3. Cranial nerve exam: II-XII are grossly intact No motor deficit. No sensory deficit. Reflexes normal. Course Course Course Narrative: 47-year-old female came in with a suprapubic pressure pain and lower back pain for the past 4 days patient was treated for UTI and finished a course of Keflex with no improvement of her symptoms, patient had a CT of the abdomen today which revealed 4 mm distal right ureteric stone with no hydroureter or hydronephrosis. As discussed with the patient will treat the patient with pain medication, drink plenty of fluids, and follow up as an outpatient with Urology. LFTs noted to be chronically elevated patient is in the process of getting workup by her PCP for that. Medical Decision Making Differential Diagnosis Differential Diagnoses: The differential diagnosis associated with the presentation includes ( UTI, pyelonephritis, kidney stone, ureteric colic , acute appendicitis.) Lab Data MDM Lab Attestation statement: I reviewed the patient's lab results. 08/30/22 23:32 08/30/22 23:32 Labs: Lab Results 08/30/22 08/30/22 08/30/22 Range/Units 23:32 23:32 23:38 WBC 11.9 H (4.8-10.8) X10*3/uL RBC 4.94 (4.20-5.50) X10*6/uL Hgb 13.6 (12.0-16.0) g/dl Hct 40.8 (37.0-47.0) % MCV 82.6 (80.0-98.0) fL MCH 27.5 (27.0-33.0) pg MCHC 33.3 (31.0-35.0) g/dl RDW 14.6 (11.0-16.0) % Plt Count 284 (160-400) X10*3/uL MPV 9.2 L (9.4-12.3) fL Immature Gran % (Auto) 0.2 (0.0-0.4) % Neut % (Auto) 55.4 (45-73) % Lymph % (Auto) 36.2 (20-40) % Morehouse % (Auto) 5.7 (2-11) % Eos % (Auto) 1.9 (0-4) % Baso % (Auto) 0.6 (0-2) % Lymph # (Auto) 4.3 (1.2-4.9) X10*3/uL Morehouse # (Auto) 0.7 (0.1-1.2) X10*3/uL Eos # (Auto) 0.2 (0.0-0.4) X10*3/uL Baso # (Auto) 0.1 (0.0-0.2) X10*3/uL Abs Immat Gran (auto) 0.02 (0.00-0.03) X10*3/uL Absolute Neuts (auto) 6.6 (2.0-8.3) x10*3/uL Absolute Nucleated RBC 0.000 (0.0-0.012) X10*3/uL Nucleated RBC % (auto) 0.0 (0.0-0.2) /100WBC Sodium 139 (135-145) mmol/L Potassium 4.0 (3.3-5.1) mmol/L Chloride 104 (96-108) mmol/L Carbon Dioxide 25 (22-29) mmol/L Anion Gap 14 (12-20) BUN 8 L (9-16) mg/dL Creatinine 0.63 (0.5-1.4) mg/dL Estim Creat Clear Calc 118.6 Estimated GFR > 60 Random Glucose 92 (60-115) mg/dL Calcium 9.3 (8.4-10.2) mg/dL Total Bilirubin 0.4 (0.0-1.0) mg/dL AST 72 H (5-31) U/L ALT 86 H (0-31) U/L Alkaline Phosphatase 164 H (39-117) U/L Total Protein 7.4 (6.5-8.0) g/dL Albumin 3.9 (3.5-5.0) g/dL Beta HCG, Quant < 2 mIU/mL Urine Color Yellow Urine Appearance Clear Urine pH 5.5 (5.0-9.0) Ur Specific Porter 1.015 (1.005-1.025) Urine Protein Negative (Neg-Trace) mg/dL Urine Glucose (UA) Negative (Negative) mg/dL Urine Ketones Negative (Negative) mg/dL Urine Blood Small (1+) H (Negative) Urine Nitrite Negative (Negative) Ur Leukocyte Esterase Negative (Negative) Urine RBC 0-2 (0-2) /HPF Urine WBC 0-5 (0-5) /HPF Ur Squamous Epith Cells 3-5 (0-2) /HPF Urine Bacteria Trace (None Seen) Hyaline Casts 0-2 (0-2) /LPF Independent Interpretation I performed an independent interpretation of an: CT Scan ( Abdomen and pelvis:1. 0.4 cm distal right ureteral calculus. No hydronephrosis. 2. Hepatic steatosis. :) Radiology Impression Discussion of test interpretation with radiology: I have reviewed the radiologist's reading. Discharge Plan Discharge Clinical Impression: Elevated liver transaminase level, Calculi, ureter, Renal colic Patient Disposition: Home, Self-Care Instructions: Ureteral Stones (ED) Prescriptions: New oxycodone 5 mg tablet 5 mg PO BID PRN (Reason: pain) Qty: 14 0RF Rx Instructions: Partial Fill upon patient request. No Action albuterol sulfate 90 mcg/actuation HFA aerosol inhaler 2 puff inhalation Q4-6H PRN (Reason: shortness of breath or wheezing) Qty: 6.7 3RF Rx Instructions: substitution allowed cephalexin 500 mg capsule 500 mg PO Q6H 7 Days Qty: 28 0RF phenazopyridine [Pyridium] 100 mg tablet 100 mg PO TID PRN (Reason: pain) Qty: 7 0RF omeprazole 20 mg capsule,delayed release(DR/EC) 20 mg PO DAILY sulfamethoxazole-trimethoprim [Bactrim DS] 800-160 mg tablet 1 tab PO Q12H 3 Days Qty: 6 0RF phentermine 37.5 mg tablet 18.75 mg PO DAILY Qty: 30 0RF Rx Instructions: must administer 30 minutes before or 1-2 hours after breakfast Referrals: Ky Woodson MD [Physician] - Skye Cameron MD [Primary Care Provider] - Stand Alone Forms: Work/School Release
[2022-08-31 02:00] VITALS: BP 138/74; PULSE 76; RESP 16; TEMP 36.3; O2SAT 96
[2022-08-31] MEDS: oxyCODONE HCl Immed Release 5 MG TABLET PO (04:16)
== END 2022-08-31 04:31 | disposition home or self-care (01) ==
PROVIDERS: Physician Assistant; Emergency Provider Emergency Medicine; PCP Internal Medicine
DX: N20.1 Calculus of ureter (principal); R33.9 Retention of urine, unspecified; M54.50 Low back pain, unspecified; Z79.899 Other long term (current) drug therapy
CPT/HCPCS: 36415; 74176; 80053; 81001; 84702; 85025; 99284

== ENCOUNTER 2022-08-31 13:23 | Outpatient (AMB) | payer OTHER, SELFPAY ==
[2022-08-31 13:44] VITALS: BP 122/84; PULSE 92; O2SAT 97; BMI 37.7
--- NOTE | 2022-08-31 13:44 | MHC.PC.OV ---
Vital Signs 08/31/22 13:44 Height 5 ft 3 in Weight 213 lb BMI 37.7 BP 122/84 Blood Pressure Location Lt brachial Position Sitting Pulse 92 Pulse Source Pulse Oximeter Pulse Oximetry (%) 97 Oxygen Delivery Method Room Air Intake Visit Reasons: ED f/u gallstones Intake Note: Pt is here today f/u ER [facility] gallstones Allergies No Known Allergies Allergy (Unknown, Verified 11/25/22 15:07) Medication List - Last Reconciled 08/31/22 by Skye Cameron MD albuterol sulfate 90 mcg/actuation 2 puffs inhalation Q4-6H PRN omeprazole 20 mg PO DAILY oxycodone 5 mg PO BID PRN phentermine 18.75 mg (1/2 x 37.5 mg) PO DAILY Tobacco use date assessed: 08/31/22 HPI ED f/u gallstones HPI Details ?47-year-old female came in with a suprapubic pressure pain and lower back pain for the past 4 days patient was treated for UTI and finished a course of Keflex with no improvement of her symptoms, patient had a CT of the abdomen today which revealed 4 mm distal right ureteric stone with no hydroureter or hydronephrosis. She was given pain medication, advised to drink plenty of fluids, and follow up as an outpatient with Urology. ?Her LFTs were also noted to be chronically elevated , does have cholelithiasis currently asymptomatic [facility] Medical History section wound complication (~12/25/06) Dermatitis of vulva Elevated liver transaminase level Family history of gallstones Gallstones without obstruction of gallbladder Impaired fasting glucose Obesity (BMI 30-39.9) Obstruction of right ureteropelvic junction due to stone Skin tag of female perineum Ureteral calculus, right Surgical History Gallstones without obstruction of gallbladder Hx laparoscopic cholecystectomy (10/14/22) Hx of appendectomy Hx of section Family History Father Diabetes mellitus HTN (hypertension) Hyperlipidemia Acute myocardial infarction Esophageal cancer Mother Depression Mental health disorder Social History Housing: House Alcohol intake: never Patient Tobacco Use Status: Never used Tobacco e-Cigarette/Vaping Use: Never Used Advance Directives: No Current occupational status: employed Cognitive needs: No Hearing needs: No Vision needs: No Questionnaire Thrive Questionnaire Date Thrive assessed: 08/16/22 FLORENCIO-7 AMB Questionnaire FLORENCIO-7 Date FLORENCIO - 7 assessed: 08/16/22 Source: Developed by Drs. Pj Balderas, Gisel De Jesus, Agustin Roa and colleagues, with an educational richelle from [employer]. Review of Systems Const Reports as per HPI, Denies headache(s) and Denies poor appetite Eyes Reports no additional complaints ENT Denies dizziness, Denies headache(s), Denies nasal congestion, Denies nasal discharge, Denies post nasal drip, Denies sinus pain and Denies sore throat Card Denies chest pain, Denies irregular heart rhythm, Denies lightheadedness and Denies dyspnea Resp Denies cough and Denies dyspnea GI Denies abdominal pain, Denies melena, Denies change in bowel habits, Denies dyspepsia and Denies heartburn Reports as per HPI, Denies difficulty voiding, Reports hot flashes and Denies urinary incontinence Neuro Reports no additional complaints, Denies dizziness and Denies headache(s) Physical exam (Primary Care) Vital Signs: Last Vital Signs Pulse 92 08/31/22 13:44 BP 122/84 08/31/22 13:44 Pulse Ox 97 08/31/22 13:44 Oxygen Delivery Method Room Air 08/31/22 13:44 BMI result Body Mass Index 37.7 Tobacco/Smoking Status: Tobacco use Status Tobacco use date assessed 08/31/22 08/31/22 13:53 Patient Tobacco Use Status Never used Tobacco 08/31/22 13:53 e-Cigarette/Vaping Use Never Used 08/31/22 13:53 Thrive Assessment: Date of Thrive Assessment Date Thrive assessed 08/16/22 08/31/22 13:53 Const General: comfortable, no acute distress, alert and awake Nutritional Appearance: obese Resp Effort & Inspection: normal respiratory effort and able to speak in complete sentences Auscultation: clear to auscultation bilaterally Cardio Palpation: normal PMI Rate: regular rate Rhythm: regular rhythm Heart sounds: S1 normal heart sound present and S2 normal heart sound present GI Inspection: Yes normal to inspection and Yes obesity Palpation (GI): Soft to palpation, nontender, no guarding and no masses General: Yes no CVA tenderness Back/Spine/Pelvis Back: no CVA tenderness Extrem General: Yes normal to inspection, Yes full ROM, Yes no joint enlargement, Yes no pedal edema and Yes normal gait Assessment and Plan Assessment & Plan (1) Obstruction of right ureteropelvic junction due to stone: Code(s): N20.1 - Calculus of ureter Plan: Started on tamsulosin, continue drinking plenty of water referred to urology (2) Gallstones without obstruction of gallbladder: Code(s): K80.20 - Calculus of gallbladder without cholecystitis without obstruction Plan: Advised to avoid any high fat diet, referred to general surgery Orders: Referrals Urology Referral N20.1 - Calculus of ureter General Surgery Referral K80.20 - Calculus of gallbladder without cholecystitis without obstruction Medications: New tamsulosin 0.4 mg PO DAILY 30 caps 0RF mometasone 0.1% 1 appl topical DAILY PRN 15 grams 0RF skin irritation Coding Level of Care Code Est Pt Level 3 (28037) Diagnoses Obstruction of right ureteropelvic junction due to stone N20.1 Gallstones without obstruction of gallbladder K80.20
== END 2022-08-31 16:47 | disposition home or self-care (01) ==
LOC: HO.HMGC 13:23
PROVIDERS: PCP Internal Medicine; Visit Provider Internal Medicine
DX: N20.1 Calculus of ureter (principal); K80.20 Calculus of gallbladder without cholecystitis without obstruction
CPT/HCPCS: 99213

== ENCOUNTER → 2022-09-09 15:04 | Outpatient (BNVA) | payer OTHER, SELFPAY | PROVIDERS: PCP Internal Medicine; Visit Provider Urology | DX: Z13.89 Encounter for screening for other disorder (principal) ==

== ENCOUNTER → 2022-09-24 10:16 | Outpatient (BNVA) | payer OTHER, SELFPAY | PROVIDERS: PCP Internal Medicine; Referring Provider Internal Medicine; Visit Provider Surgery | DX: Z13.89 Encounter for screening for other disorder (principal) ==

== ENCOUNTER 2022-10-15 05:56 | Day surgery (SDC) | payer OTHER, SELFPAY ==
[2022-10-11 11:40] VITALS: BMI 37.5
--- NOTE | 2022-10-14 10:21 | P.CONAN_ITS ---
Documented by User: Tenisha Acuna NP 10/14/22 10:22 HPI - Anesthesia Eval Consult details Narrative: 47yo F for Cholecystectomy Laparoscopic possible open PMFSH Active Problems Active Problems: All Active Problems (Updated 10/11/22 @ 11:29 by Nelida Vega, RN) Ureteral calculus, right (Acute) Obesity (BMI 30-39.9) (Acute) Gallstones without obstruction of gallbladder (Acute) Obstruction of right ureteropelvic junction due to stone (Acute) Impaired fasting glucose (Acute) Family history of gallstones (Acute) Elevated liver transaminase level (Acute) Past Medical History Medical History section wound complication (~12/25/06) Dermatitis of vulva Elevated liver transaminase level Family history of gallstones Gallstones without obstruction of gallbladder Impaired fasting glucose Obesity (BMI 30-39.9) Obstruction of right ureteropelvic junction due to stone Skin tag of female perineum Family History Family History Father Diabetes mellitus HTN (hypertension) Hyperlipidemia Acute myocardial infarction Esophageal cancer Mother Depression Mental health disorder Surgical History Surgical History Hx of appendectomy Hx of section Social History Social History Housing: House Alcohol intake: never Patient Tobacco Use Status: Never used Tobacco e-Cigarette/Vaping Use: Never Used Are you DNR?: No Advance Directives: No Advance Directives Information Provided: Yes Nutrition Risks: No Nutritional Risk Current occupational status: employed Cognitive needs: No Hearing needs: No Vision needs: No Meds Allergies Allergy/AdvReac Type Severity Reaction Status Date / Time No Known Allergies Allergy Unknown Verified 10/15/22 06:04 Active Medications: Current Medications Cefazolin Sodium/Dextrose (Ancef) 2 gm in 50 mls @ 100 mls/hr IV PREOP ONE Stop: 10/14/22 10:33 Home Medications Medication Instructions Recorded Confirmed Last Taken Type omeprazole 20 mg capsule,delayed 20 mg PO DAILY 04/25/20 10/11/22 Unknown History release phentermine 37.5 mg tablet 18.75 mg PO QAM 10/11/22 10/11/22 Unknown History Exam Exam Date and Time: October 14, 2022 1021 Height,Weight and Vital Signs: Height 5 ft 3 in Weight 96.162 kg Pertinent Lab Results Pertinent Lab Results: Laboratory Tests 08/30/22 08/30/22 23:32 23:32 WBC 11.9 H Hgb 13.6 Hct 40.8 Plt Count 284 Sodium 139 Potassium 4.0 Chloride 104 Carbon Dioxide 25 BUN 8 L Creatinine 0.63 Assessment and Plan Assessment Anesthesia Assessment: Chart Reviewed Documented by User: Valerio John MD 10/15/22 07:14 [facility] Past Medical History Medical History section wound complication (~12/25/06) Dermatitis of vulva Elevated liver transaminase level Family history of gallstones Gallstones without obstruction of gallbladder Impaired fasting glucose Obesity (BMI 30-39.9) Obstruction of right ureteropelvic junction due to stone Skin tag of female perineum Family History Family History Father Diabetes mellitus HTN (hypertension) Hyperlipidemia Acute myocardial infarction Esophageal cancer Mother Depression Mental health disorder Surgical History Surgical History Hx of appendectomy Hx of section History of Problems with Anesthesia: No Social History Social History Housing: House Alcohol intake: never Patient Tobacco Use Status: Never used Tobacco e-Cigarette/Vaping Use: Never Used Are you DNR?: No Advance Directives: No Advance Directives Information Provided: Yes Nutrition Risks: No Nutritional Risk Current occupational status: employed Cognitive needs: No Hearing needs: No Vision needs: No Meds Allergies Allergy/AdvReac Type Severity Reaction Status Date / Time No Known Allergies Allergy Unknown Verified 10/15/22 06:04 Home Medications Medication Instructions Recorded Confirmed Last Taken Type omeprazole 20 mg capsule,delayed 20 mg PO DAILY 04/25/20 10/11/22 Unknown History release phentermine 37.5 mg tablet 18.75 mg PO QAM 10/11/22 10/11/22 Unknown History Exam Airway Mallampati Class: II TM Dist: >3cm Neck ROM: Limited Heart: rrr Lungs: cta Assessment and Plan Assessment Anesthesia Assessment: Anesthesia Plan Discussed Final Anesthetic Review History of Problems with Anesthesia: No NPO: Yes ASA Class: III Final Preanesthetic Review: No Changes in Pt Med Stat, Meds/Allgs Chart Reviewed, Consent Obtained/Reviewed and Anes Risks/Benef Reviewed Patient Risk: Intermediate Procedure Risk: Intermediate Anesthetic Plan Anesthetic Plan: GA Disposition: Standard PACU
[2022-10-15] VITALS (14 sets, daily range): BP systolic 121–174; BP diastolic 53–89; PULSE 56–86; RESP 14–24; TEMP 36.1–36.6; O2SAT 92–98
[2022-10-15] MEDS: Lactated Ringers 1,000 ML 100 ML IVCONT (06:19)
[2022-10-15 07:01] LABS: UPreg QC Valid YES; Urine Pregnancy NEGATIVE (NEGATIVE)
--- NOTE | 2022-10-15 07:31 | MHC.SHP ---
Pre-Procedural Eval Section A Date of Service: 10/15/22 The patient is an INPATIENT: No The History & Physical has been completed within 30 days and I have reviewed it.: Yes Section B Chief Complaint: Calculus of gallbladder without cholecystitis Allergies: Allergies Allergy/AdvReac Type Severity Reaction Status Date / Time No Known Allergies Allergy Unknown Verified 10/15/22 06:04 Plan I have reviewed the history and physical and performed a pertinent physical examination on my patient. No changes have occurred unless specified. Time Spent With Patient Time: Total time managing care of this patient today ____ minutes.
--- NOTE | 2022-10-15 08:38 | W.PM.OPN ---
Operative Note Operative Note Date of Service: 10/15/22 Narrative: Preoperative diagnosis: []Recurrent biliary colic Postop diagnosis: [] same Procedure [] laparoscopic cholecystectomy Surgeon: [] [facility] Director Outpatient Services: [] daniella Jason Type of Anesthesia: [] general Indication for surgery: [] recurrence symptoms of biliary colic Findings: [] markedly intrahepatic gallbladder with multiple large gallstones. Omental adhesions to the gallbladder. Patient is brought to the operating room, placed on the operating table in a supine position, and after an adequate level of general anesthesia was induced the patient's abdomen which was moderately corpulent was prepped and draped in usual sterile fashion. Using a supraumbilical curvilinear incision, Sanchez technique was used to enter abdominal cavity under direct vision and CO2 insufflation to approximately 15 mm was obtained. Upper midline port was placed under direct view, and some omental adhesions in the right upper quadrant were taken down using electro Bovie and the right subcostal ports were then placed under direct laparoscopic view. Patient was placed in reverse Trendelenburg position and tilted to the left. Gallbladder was grasped using laparoscopic graspers and retracted superiorly and laterally. Omental adhesions were swept off the gallbladder where its hilum was approached. Cystic artery and cystic duct w were each identified, circumferentially skeletonized, and and traced directly into the gallbladder and critical view obtained. Each was clipped proximally x2, distally x1, and transected. Gallbladder was then cauterized from the gallbladder fossa using electro Bovie. Specimen was placed in an Endo-Catch bag, a retrieved through the umbilical port. The abdominal cavity was copiously irrigated, and secured hemostasis. All ports were removed under direct laparoscopic view. Wounds were closed in the following manner; umbilical wound had is fascia reapproximated using interrupted 0 Vicryl sutures. Skin was closed using subcuticular 4-0 Vicryl sutures followed by Steri-Strips and sterile dressings. Wounds retrieved the 0.5% Marcaine with epinephrine at completion. Sponge, needle, and instrument counts were reported to be correct. Patient tolerated the procedure well and emerged from anesthesia in stable condition. EBL minimal
[2022-10-15] MEDS: fentaNYL citrate/PF 100 MCG/2 ML VIAL 25 MCG IVPUSH (09:27)
[2022-10-15] MEDS: ondansetron HCL 4 MG/2 ML VIAL IVPUSH (09:56)
[2022-10-15] MEDS: oxyCODONE HCl Immed Release 5 MG TABLET PO (10:12)
== END 2022-10-15 11:41 | disposition home or self-care (01) ==
PROVIDERS: Nurse Practitioner; PCP Internal Medicine; Visit Provider Surgery
PROC: 0FT44ZZ Resection of Gallbladder, Percutaneous Endoscopic Approach (ICD-10-PCS; CPT 47562; principal; 2022-10-15 07:30)
DX: K80.10 Calculus of gallbladder with chronic cholecystitis without obstruction (principal); K82.8 Other specified diseases of gallbladder; R73.01 Impaired fasting glucose; E66.9 Obesity, unspecified; Z68.37 Body mass index [BMI] 37.0-37.9, adult; N20.1 Calculus of ureter; R74.01 Elevation of levels of liver transaminase levels; Z79.899 Other long term (current) drug therapy; Z87.442 Personal history of urinary calculi
CPT/HCPCS: 47562; 81025; 88304; J0131; J0690; J1100; J1170; J1885; J2250; J2405; J2550; J3010

== ENCOUNTER → 2022-10-22 10:19 | Outpatient (BNVA) | payer OTHER, SELFPAY | PROVIDERS: PCP Internal Medicine; Visit Provider Surgery | DX: Z13.89 Encounter for screening for other disorder (principal) ==

== ENCOUNTER 2022-11-10 10:05 | Outpatient (REF) | payer OTHER, SELFPAY ==
--- NOTE | ~2022-11-10 | US_ITS ---
EXAMINATION: US RETROPERITONEAL COMPLETE (RENAL) CLINICAL INFORMATION: Calculus of ureter. COMPARISON: CT abdomen and pelvis without contrast dated 08/31/2022. Ultrasound abdomen complete dated 08/24/2022. TECHNIQUE: Real-time imaging of the kidneys and bladder. FINDINGS: RIGHT KIDNEY: 11.8 x 5.1 x 6.8 cm (SAG x AP x TRV). The kidney is normal in size, contour, and echogenicity. Renal cortical thickness is normal. No calculi or focal parenchymal lesions. No hydronephrosis. There is question of duplicated pelvicalyceal system. Only one right ureter is seen on recent CT abdomen exam 08/31/2022. LEFT KIDNEY: 12.0 x 6.4 x 5.4 cm (SAG x AP x TRV). The kidney is normal in size, contour, and echogenicity. Renal cortical thickness is normal. No calculi or focal parenchymal lesions. No hydronephrosis. There is a hypertrophic column of Jamie in the midpole. BLADDER: Well distended and normal. Bilateral ureteral jets are demonstrated. Prevoid bladder volume is 272 mL. Postvoid bladder volume is 23 mL. US/US retroperitoneal comp IMPRESSION: Question duplicated pelvicalyceal system right kidney by ultrasound. On CT only one ureter is seen. No radiopaque renal calculi or hydronephrosis. A prominent column of Jamie in midpole left kidney is seen.
== END 2022-11-10 10:06 | disposition home or self-care (01) ==
LOC: HO.HMGCX 10:05
PROVIDERS: PCP Internal Medicine; Visit Provider Urology
DX: N20.1 Calculus of ureter (principal)
CPT/HCPCS: 76770

== ENCOUNTER 2022-11-14 01:23 | Emergency (ER) | payer OTHER, SELFPAY ==
--- NOTE | ~2022-11-14 | XR_ITS ---
EXAMINATION: XR CHEST CLINICAL INFORMATION: Chest pain COMPARISON: 07/16/2020 TECHNIQUE: Frontal view of the chest was obtained. FINDINGS: The lungs are well expanded. There is no focal consolidation, edema, or effusion. No pneumothorax. The cardiomediastinal silhouette is within normal limits. No acute osseous abnormality. XR/XR chest 1V IMPRESSION: No acute pulmonary disease.
--- NOTE | 2022-11-14 01:27 | ECG_ITS ---
Test Reason : CHEST PAIN Blood Pressure : / mmHG Vent. Rate : 072 BPM Atrial Rate : 072 BPM P-R Int : 166 ms QRS Dur : 086 ms QT Int : 384 ms P-R-T Axes : 054 001 019 degrees QTc Int : 420 ms Sinus rhythm with marked sinus arrhythmia Otherwise normal ECG When compared with ECG of 11-DEC-2018 06:57, No significant change was found Referred By: Generic ED Physician Electronically Signed By:Guy Costa
[2022-11-14 01:31] VITALS: BP 142/81; PULSE 74; RESP 18; TEMP 36.6; O2SAT 96; BMI 35.7
[2022-11-14 02:34] LABS: MANUAL DIFF FLAG NO
[2022-11-14 02:36] LABS: Basophils Absolute Auto 0.1 X10*3/uL (0.0-0.2); Basophils Percent Auto 0.6 % (0-2); Eosinophils Absolute Auto 0.2 X10*3/uL (0.0-0.4); Eosinophils Percent Auto 2.1 % (0-4); Hematocrit 41.5 % (37.0-47.0); Hemoglobin 13.6 g/dl (12.0-16.0); Imm Gran Abs Auto 0.02 X10*3/uL (0.00-0.03); Imm Gran Pct Auto 0.2 % (0.0-0.4); Lymphocytes Absolute Auto 3.4 X10*3/uL (1.2-4.9); Lymphocytes Percent Auto 33.5 % (20-40); Mean Corpuscular HGB Conc 32.8 g/dl (31.0-35.0); Mean Corpuscular Volume 82.5 fL (80.0-98.0); Mean Platelet Volume 9.5 fL (9.4-12.3); Monocytes Absolute Auto 0.5 X10*3/uL (0.1-1.2); Monocytes Percent Auto 5.4 % (2-11); Neutrophils Absolute Auto 5.9 x10*3/uL (2.0-8.3); Neutrophils Percent Auto 58.2 % (45-73); Platelet Count 258 X10*3/uL (160-400); Red Blood Count 5.03 X10*6/uL (4.20-5.50); Red Cell Distribution Width 14.3 % (11.0-16.0); White Blood Count 10.1 X10*3/uL (4.8-10.8)
[2022-11-14 02:55] LABS: Anion Gap 15 (12-20); Blood Urea Nitrogen 7 mg/dL (9-16); Calcium 9.4 mg/dL (8.4-10.2); Carbon Dioxide 23 mmol/L (22-29); Chloride 106 mmol/L (96-108); Creatinine Clr Calc Pharmacy 119.9; Estimated Glomerular Filt Rate > 60; Glucose Random 95 mg/dL (60-115); Sodium 140 mmol/L (135-145)
[2022-11-14 03:01] LABS: Troponin-I High Sensitivity < 2.7 ng/L (<3.5-17.0)
[2022-11-14 03:53] VITALS: BP 134/78; PULSE 71; PULSE 74; RESP 19; O2SAT 98
[2022-11-14 04:09] LABS: Appearance Urine Clear; Color Urine Yellow; Glucose Urine UA Negative (Negative); Leukocyte Esterase Urine Negative (Negative); Nitrite Urine Negative (Negative); PH 5.5 (5.0-9.0); Specific Gravity - Urine 1.015 (1.005-1.025); UMIC TRIGGER UACC YES; Urine Blood Small (1+) (Negative); Urine Ketones Negative (Negative); Urine Protein Negative (Neg-Trace)
[2022-11-14 04:10] LABS: UPreg QC Valid YES; Urine Pregnancy NEGATIVE (NEGATIVE)
[2022-11-14 04:20] LABS: Bacteria Urine None Seen (None Seen); Hyaline Casts Urine 0-2 /LPF (0-2); Squamous Epithelial Cell Urine 0-2 /HPF (0-2); WBC Urine 0-5 /HPF (0-5)
--- NOTE | 2022-11-14 04:44 | ED_ITS ---
HPI - Chest Pain General Chief Complaint: Chest Pain Stated Complaint: Chest pain Time Seen by Provider: 11/14/22 04:39 Source: patient Mode of arrival: ambulatory Limitations: no limitations History of Present Illness HPI narrative: Patient comes to the emergency room complaining of left-sided chest pain that started 48+ hours ago. Patient states that the pain is constant. Denies any falls or injuries. Denies coughing, no shortness of breath. Patient states that it feels she that she has a big bubble inside of her chest and she is trying to burp it out. Abdominal pain Related Data Home Medications Medication Instructions Recorded Confirmed omeprazole 20 mg capsule,delayed 20 mg PO DAILY 04/25/20 10/28/22 release Previous Rx's Medication Instructions Recorded albuterol sulfate 90 mcg/actuation 2 puff inhalation Q4-6H PRN 06/18/21 aerosol inhaler shortness of breath or wheezing #6.7 grams mometasone 0.1 % topical cream 1 appl topical DAILY PRN skin 08/31/22 irritation #15 grams cholecalciferol (vitamin D3) 1,250 1,250 mcg PO QWEEK 3 months #13 09/27/22 mcg (50,000 unit) capsule caps Wegovy 0.25 mg/0.5 mL subcutaneous 0.25 mg (0.5 mL) subcut QWEEK 4 10/28/22 pen injector (semaglutide (weight weeks #2 mL loss)) sulfamethoxazole 800 1 tab PO Q12H 3 days #6 tabs 10/28/22 mg-trimethoprim 160 mg tablet (Bactrim DS) Allergies Allergy/AdvReac Type Severity Reaction Status Date / Time No Known Allergies Allergy Unknown Verified 10/28/22 15:15 Review of Systems Review of Systems: Constitutional : No Weight loss, No Fever, No Chills, No Night Sweats, No Fatigue, No Malaise ENT/Mouth : No Hearing loss, No Ear Pain, No Nasal Congestion, No Sinus Pain, No Hoarseness, No sore throat, No Rhinorrhea, No Swallowing Difficulty Eyes: No Eye Pain, No Swelling, No Redness, No Foreign Body, No Discharge, No Vision Changes Cardiovascular : Complaining of Chest discomfort, no pain No SOB, No Dyspnea on Exertion, No Orthopnea, No Edema, No Palpitations Respiratory : No Cough, No Sputum, No Wheezing, No Smoke Exposure, No Dyspnea Gastrointestinal : No Nausea, No Vomiting, No Diarrhea, No Constipation, No abdominal Pain, No Hematochezia, No Melena Genitourinary : no irregular bleeding, No Dysuria, No Urinary Frequency, No Hematuria, No Urinary Incontinence, No Urgency, No Flank Pain, No Urinary Flow Changes, No Hesitancy Musculoskeletal : No joint pain, No Myalgias, No Joint Swelling Skin : No Skin Lesions, No rash Neuro : No Weakness, No Numbness, No Paresthesias, No Loss of Consciousness, No Dizziness, No Headache Psych : No Anxiety/Panic, No Depression, No SI/HI/AH/VH, No Social Issues, Heme/Lymph: No Bruising, No Bleeding,No Lymphadenopathy Endocrine : No Polyuria, No Polydipsia, No Temperature Intolerance PMFSH Past Medical History Medical History section wound complication (~12/25/06) Dermatitis of vulva Elevated liver transaminase level Family history of gallstones Gallstones without obstruction of gallbladder Impaired fasting glucose Obesity (BMI 30-39.9) Obstruction of right ureteropelvic junction due to stone Skin tag of female perineum Ureteral calculus, right Surgical History Gallstones without obstruction of gallbladder Hx laparoscopic cholecystectomy (10/14/22) Hx of appendectomy Hx of section Family History Family History Father Diabetes mellitus HTN (hypertension) Hyperlipidemia Acute myocardial infarction Esophageal cancer Mother Depression Mental health disorder Social History Social History Housing: House Alcohol intake: never Patient Tobacco Use Status: Never used Tobacco Smoked in Last 30 Days: No e-Cigarette/Vaping Use: Never Used Use of substances other than those prescribed or required for medical reasons: No Advance Directives: No Advance Directives Information Provided: No Patient : No Current occupational status: employed Cognitive needs: No Hearing needs: No Vision needs: No Physical Exam Vital Signs: Vital Signs: Last Vital Signs Temp 97.8 F 11/14/22 01:31 Pulse 74 11/14/22 03:53 Resp 19 11/14/22 03:53 BP 134/78 11/14/22 03:53 Pulse Ox 98 11/14/22 03:53 O2 Del Method Room Air 11/14/22 03:53 BMI result Body Mass Index 35.7 Const: Other: Appearance: Alert. Oriented X3. No acute distress. Eyes: Pupils equal, round and reactive to light. ENT: Pharynx normal. Neck: Normal inspection. Neck supple. No lymph nodes noted. No crepitus CVS: Normal heart rate and rhythm. Pulses normal. Normal S1 and S2 Respiratory: No respiratory distress. Breath sounds normal. No Wheezing. No rales Abdomen: Soft and nontender. No rigidity. No distention. Skin: Skin warm and dry. Normal skin color. Normal skin turgor. Extremities: No lower extremity edema. No Lacerations. No Rash Neuro: Oriented X 3. No motor deficit. No sensory deficit. Moving all extremities. No slurred speech. CN 2 through 12 grossly intact Psych: calm, cooperative, normal affect Medical Decision Making Medical Decision Making MDM Narrative: -EKG interpreted by me: Sinus rhythm, marked arrhythmia, no ST segment depression or elevation, no T-wave inversion, QTC 420 -troponin negative, it has been 48 hours at least since the patient started having symptoms. Unlikely to be of cardiac etiology Chest x-ray negative Lab Data [facility] Lab Attestation statement: I reviewed the patient's lab results. 11/14/22 02:31 11/14/22 02:31 Labs: Lab Results 11/14/22 11/14/22 11/14/22 Range/Units 02:31 02:31 02:31 WBC 10.1 (4.8-10.8) X10*3/uL RBC 5.03 (4.20-5.50) X10*6/uL Hgb 13.6 (12.0-16.0) g/dl Hct 41.5 (37.0-47.0) % MCV 82.5 (80.0-98.0) fL MCH 27.0 (27.0-33.0) pg MCHC 32.8 (31.0-35.0) g/dl RDW 14.3 (11.0-16.0) % Plt Count 258 (160-400) X10*3/uL MPV 9.5 (9.4-12.3) fL Immature Gran % (Auto) 0.2 (0.0-0.4) % Neut % (Auto) 58.2 (45-73) % Lymph % (Auto) 33.5 (20-40) % [place] % (Auto) 5.4 (2-11) % Eos % (Auto) 2.1 (0-4) % Baso % (Auto) 0.6 (0-2) % Lymph # (Auto) 3.4 (1.2-4.9) X10*3/uL [place] # (Auto) 0.5 (0.1-1.2) X10*3/uL Eos # (Auto) 0.2 (0.0-0.4) X10*3/uL Baso # (Auto) 0.1 (0.0-0.2) X10*3/uL Abs Immat Gran (auto) 0.02 (0.00-0.03) X10*3/uL Absolute Neuts (auto) 5.9 (2.0-8.3) x10*3/uL Absolute Nucleated RBC 0.000 (0.0-0.012) X10*3/uL Nucleated RBC % (auto) 0.0 (0.0-0.2) /100WBC Sodium 140 (135-145) mmol/L Potassium 4.0 (3.3-5.1) mmol/L Chloride 106 (96-108) mmol/L Carbon Dioxide 23 (22-29) mmol/L Anion Gap 15 (12-20) BUN 7 L (9-16) mg/dL Creatinine 0.61 (0.5-1.4) mg/dL Estim Creat Clear Calc 119.9 Estimated GFR > 60 Random Glucose 95 (60-115) mg/dL Calcium 9.4 (8.4-10.2) mg/dL Troponin I High Sens < 2.7 (<3.5-17.0) ng/L Urine Color Urine Appearance Urine pH (5.0-9.0) Ur Specific [place] (1.005-1.025) Urine Protein (Neg-Trace) mg/dL Urine Glucose (UA) (Negative) mg/dL Urine Ketones (Negative) mg/dL Urine Blood (Negative) Urine Nitrite (Negative) Ur Leukocyte Esterase (Negative) Urine RBC (0-2) /HPF Urine WBC (0-5) /HPF Ur Squamous Epith Cells (0-2) /HPF Urine Bacteria (None Seen) Hyaline Casts (0-2) /LPF Urine Test (NEGATIVE) 11/14/22 11/14/22 Range/Units 04:03 04:03 WBC (4.8-10.8) X10*3/uL RBC (4.20-5.50) X10*6/uL Hgb (12.0-16.0) g/dl Hct (37.0-47.0) % MCV (80.0-98.0) fL MCH (27.0-33.0) pg MCHC (31.0-35.0) g/dl RDW (11.0-16.0) % Plt Count (160-400) X10*3/uL MPV (9.4-12.3) fL Immature Gran % (Auto) (0.0-0.4) % Neut % (Auto) (45-73) % Lymph % (Auto) (20-40) % [place] % (Auto) (2-11) % Eos % (Auto) (0-4) % Baso % (Auto) (0-2) % Lymph # (Auto) (1.2-4.9) X10*3/uL [place] # (Auto) (0.1-1.2) X10*3/uL Eos # (Auto) (0.0-0.4) X10*3/uL Baso # (Auto) (0.0-0.2) X10*3/uL Abs Immat Gran (auto) (0.00-0.03) X10*3/uL Absolute Neuts (auto) (2.0-8.3) x10*3/uL Absolute Nucleated RBC (0.0-0.012) X10*3/uL Nucleated RBC % (auto) (0.0-0.2) /100WBC Sodium (135-145) mmol/L Potassium (3.3-5.1) mmol/L Chloride (96-108) mmol/L Carbon Dioxide (22-29) mmol/L Anion Gap (12-20) BUN (9-16) mg/dL Creatinine (0.5-1.4) mg/dL Estim Creat Clear Calc Estimated GFR Random Glucose (60-115) mg/dL Calcium (8.4-10.2) mg/dL Troponin I High Sens (<3.5-17.0) ng/L Urine Color Yellow Urine Appearance Clear Urine pH 5.5 (5.0-9.0) Ur Specific [place] 1.015 (1.005-1.025) Urine Protein Negative (Neg-Trace) mg/dL Urine Glucose (UA) Negative (Negative) mg/dL Urine Ketones Negative (Negative) mg/dL Urine Blood Small (1+) H (Negative) Urine Nitrite Negative (Negative) Ur Leukocyte Esterase Negative (Negative) Urine RBC 3-5 H (0-2) /HPF Urine WBC 0-5 (0-5) /HPF Ur Squamous Epith Cells 0-2 (0-2) /HPF Urine Bacteria None Seen (None Seen) Hyaline Casts 0-2 (0-2) /LPF Urine Test NEGATIVE (NEGATIVE) Radiology Impression Discussion of test interpretation with radiology: I have reviewed the radiologist's reading. Radiologist Impression: INDINGS: The lungs are well expanded. There is no focal consolidation, edema, or effusion. No pneumothorax. The cardiomediastinal silhouette is within normal limits. No acute osseous abnormality. XR/XR chest 1V IMPRESSION: No acute pulmonary disease. ? Discharge Plan Discharge Clinical Impression: Atypical chest pain Patient Disposition: Home, Self-Care Instructions: Chest Pain (ED) Additional Instructions: Please follow-up with your primary care physician tomorrow. If you have any worsening or new symptoms, please return to the emergency room or call 911 Prescriptions: No Action albuterol sulfate 90 mcg/actuation HFA aerosol inhaler 2 puff inhalation Q4-6H PRN (Reason: shortness of breath or wheezing) Qty: 6.7 3RF Rx Instructions: substitution allowed omeprazole 20 mg capsule,delayed release(DR/EC) 20 mg PO DAILY mometasone 0.1 % cream 1 appl topical DAILY PRN (Reason: skin irritation) Qty: 15 0RF cholecalciferol (vitamin D3) 1,250 mcg (50,000 unit) capsule 1,250 mcg PO QWEEK 90 Days Qty: 13 0RF Wegovy 0.25 mg/0.5 mL pen injector 0.25 mg subcut QWEEK 28 Days Qty: 2 0RF Rx Instructions: administer weeks 1 through 4 of therapy sulfamethoxazole-trimethoprim [Bactrim DS] 800-160 mg tablet 1 tab PO Q12H 3 Days Qty: 6 0RF
== END 2022-11-14 04:54 | disposition home or self-care (01) ==
PROVIDERS: Emergency Provider Emergency Medicine; PCP Internal Medicine
DX: R07.89 Other chest pain (principal); Z79.899 Other long term (current) drug therapy
CPT/HCPCS: 36415; 71045; 80048; 81001; 81025; 84484; 85025; 93005; 99284; 99285

== ENCOUNTER → 2022-11-18 15:20 | Outpatient (BNVA) | payer OTHER, SELFPAY | PROVIDERS: PCP Internal Medicine; Visit Provider Urology ==

== ENCOUNTER 2023-01-15 07:29 | Emergency (ER) | payer OTHER, SELFPAY ==
[2023-01-15 07:43] VITALS: BP 144/94; PULSE 88; RESP 19; TEMP 36.6; O2SAT 96; BMI 33.3
--- NOTE | 2023-01-15 07:54 | ED.ABDPAIN ---
HPI - Abdominal Pain General Chief Complaint: Abdominal Pain Stated Complaint: ? passing gall stones Time Seen by Provider: 01/15/23 07:42 Source: patient and family (, Lalo) Mode of arrival: ambulatory Limitations: no limitations History of Present Illness HPI narrative: 47-year-old female who presents emergency department for evaluation of nausea, vomiting, diarrhea and abdominal pain. The patient states that she had a gradual onset of pain around 05:00 hours and the pain got worse around 05:30 hours. She describes the pain is a constant, pressure-like pain. She points to her suprapubic area and states that the radiates to her back. She states that similar pain in October of 2022 and at that time she had a CT scan of the abdomen pelvis which revealed a right-sided 4 mm renal stone. She states that her pain is currently 9/10. She had associated nausea, 4 episodes of vomiting and 2 episodes of diarrhea. There was no blood in the emesis or in the diarrhea. Past medical history significant for prediabetes. Past surgical history significant for appendectomy, cholecystectomy in September of 2022, . Related Data Home Medications Medication Instructions Recorded Confirmed omeprazole 20 mg capsule,delayed 20 mg PO DAILY 04/25/20 11/18/22 release Previous Rx's Medication Instructions Recorded albuterol sulfate 90 mcg/actuation 2 puff inhalation Q4-6H PRN 06/18/21 aerosol inhaler shortness of breath or wheezing #6.7 grams mometasone 0.1 % topical cream 1 appl topical DAILY PRN skin 08/31/22 irritation #15 grams cholecalciferol (vitamin D3) 1,250 1,250 mcg PO QWEEK 3 months #13 09/27/22 mcg (50,000 unit) capsule caps tamsulosin 0.4 mg capsule (Flomax) 0.4 mg PO BEDTIME to help pass 11/18/22 urinary tract stones #21 caps semaglutide (weight loss) 0.5 0.25 mg (0.25 mL) subcut QWEEK 4 11/25/22 mg/0.5 mL subcutaneous pen injector weeks #2 mL morphine 15 mg immediate release 15 mg PO Q4-6H PRN pain #10 tabs 01/15/23 tablet ondansetron 4 mg disintegrating 4 mg PO Q6-8H PRN nausea and 01/15/23 tablet vomiting #14 tabs tamsulosin 0.4 mg capsule (Flomax) 0.4 mg PO DAILY #14 caps 01/15/23 Allergies Allergy/AdvReac Type Severity Reaction Status Date / Time No Known Allergies Allergy Unknown Verified 11/25/22 15:07 Review of Systems Review of Systems Yes all other systems are reviewed and are negative [facility] Past Medical History [facility] Narrative: Social history: She denies tobacco, alcohol and drug use. Medical History section wound complication (~12/25/06) Dermatitis of vulva Elevated liver transaminase level Family history of gallstones Gallstones without obstruction of gallbladder Impaired fasting glucose Obesity (BMI 30-39.9) Obstruction of right ureteropelvic junction due to stone Skin tag of female perineum Ureteral calculus, right Surgical History Gallstones without obstruction of gallbladder Hx laparoscopic cholecystectomy (10/14/22) Hx of appendectomy Hx of section Family History Family History Father Diabetes mellitus HTN (hypertension) Hyperlipidemia Acute myocardial infarction Esophageal cancer Mother Depression Mental health disorder Social History Social History Housing: House Alcohol intake: never Patient Tobacco Use Status: Never used Tobacco e-Cigarette/Vaping Use: Never Used Advance Directives: No Current occupational status: employed Cognitive needs: No Hearing needs: No Vision needs: No Physical Exam ED Vital Signs: Vital Signs - 24 hr 01/15/23 07:43 01/15/23 08:54 01/15/23 10:28 Temperature 98 F 97.9 F Pulse Rate 88 61 64 Respiratory Rate 19 20 18 Blood Pressure 144/94 H 112/73 118/74 Pulse Oximetry 96 94 94 Oxygen Delivery Method Room Air Room Air Room Air BMI result Body Mass Index 33.3 Const General: cooperative and no acute distress Orientation/consciousness: oriented to person and oriented to place Limitations: no limitations HENMT Head: Yes normal to inspection, Yes normocephalic and Yes atraumatic Ears: external ears normal General nose exam: Normal external nose present Face and sinus: Yes normal facial exam Mouth: Normal oral and palatal mucosa present Throat: Yes posterior oropharynx normal Eyes General: appearance normal, both eyes and all related structures Pupils: Equal, round and reactive pupils present Neck Neck: Yes normal visual inspection, Yes no lymphadenopathy, Yes trachea midline and Yes supple Chest Chest palpation & inspection: normal inspection of the chest and normal palpation of entire chest wall Resp Effort & Inspection: normal respiratory effort and able to speak in complete sentences Auscultation: clear to auscultation bilaterally Cardio Rate: regular rate Rhythm: regular rhythm Heart sounds: S1 normal heart sound present, S2 normal heart sound present and no murmurs GI Other: Patient's abdomen is soft, nondistended, she has moderate right lower quadrant tenderness, no rebound, no voluntary or involuntary guarding Other: Moderate right CVA tenderness Skin General skin exam: no rashes or lesions noted Neuro General: oriented to person and oriented to place Cranial nerves: Yes Equal, round and reactive pupils present Cognition (Neuro): normal cognition Motor exam (neuro): 5/5 motor strength present throughout Extrem General: Yes normal to inspection Psych Appearance: grossly normal Speech and movement: Normal speech and movement present Affect: normal affect Attitude: cooperative Medical Decision Making Medical Decision Making MDM Narrative: 47-year-old female who presents emergency department for evaluation of nausea, vomiting, diarrhea and abdominal pain. The patient states that she had a gradual onset of pain around 05:00 hours and the pain got progressively worse. The pain is located in suprapubic area and states that the radiates to her mid back. She had associated nausea, 4 episodes of vomiting and 2 episodes of diarrhea. I ordered the following test: CBC, CMP, quantitative beta-hCG, lipase, urinalysis, CT scan of the abdomen pelvis without IV contrast patient's pain and nausea was treated with Toradol 15 mg IV and Zofran 4 mg IV. Is also ordered to get normal saline x1 L. 1057: Patient is feeling significantly better after the above treatment. Patient's laboratory evaluation was unremarkable except for elevated AST, ALT and alk-phos which is chronic and is secondary to fatty liver which is seen on today's CT scan non previous CT scans. CT scan of the abdomen pelvis without IV contrast is consistent with a 4 mm right UVJ stone which explains the patient's pain. Patient was given Flomax 0.4 mg orally, Rx for Flomax 0.4 mg daily x2 weeks. Patient was advised to take Tylenol and ibuprofen for pain and for pain not relieved by these medications she was prescribed morphine. Patient sees Dr. Woodson and was advised to contact him for follow-up within 1 week. Differential Diagnosis Differential Diagnoses: The differential diagnosis associated with the presentation includes Differential diagnosis includes was not limited to renal colic, ureteral stone, pyelonephritis, urinary tract infection, pancreatitis, gastritis Admission/Observation Consideration of admission/observation: Escalation of care including admission/observation considered Lab Data MDM Lab Attestation statement: I reviewed the patient's lab results. My interpretation patient's laboratory evaluation is as follows: CBC was normal. Patient had an elevated AST, ALT and alkaline phosphatase a of 70, 86 and 159-these are chronically elevated. Urinalysis was positive for blood. Microscopic was negative for infection. 01/15/23 08:03 01/15/23 08:03 Labs: Lab Results 01/15/23 01/15/23 01/15/23 Range/Units 08:03 08:03 08:03 WBC 8.8 (4.8-10.8) X10*3/uL RBC 5.05 (4.20-5.50) X10*6/uL Hgb 13.8 (12.0-16.0) g/dl Hct 42.2 (37.0-47.0) % MCV 83.6 (80.0-98.0) fL MCH 27.3 (27.0-33.0) pg MCHC 32.7 (31.0-35.0) g/dl RDW 14.2 (11.0-16.0) % Plt Count 272 (160-400) X10*3/uL MPV 8.9 L (9.4-12.3) fL Immature Gran % (Auto) 0.3 (0.0-0.4) % Neut % (Auto) 68.2 (45-73) % Lymph % (Auto) 25.3 (20-40) % [place] % (Auto) 4.8 (2-11) % Eos % (Auto) 1.1 (0-4) % Baso % (Auto) 0.3 (0-2) % Lymph # (Auto) 2.2 (1.2-4.9) X10*3/uL [place] # (Auto) 0.4 (0.1-1.2) X10*3/uL Eos # (Auto) 0.1 (0.0-0.4) X10*3/uL Baso # (Auto) 0.0 (0.0-0.2) X10*3/uL Abs Immat Gran (auto) 0.03 (0.00-0.03) X10*3/uL Absolute Neuts (auto) 6.0 (2.0-8.3) x10*3/uL Absolute Nucleated RBC 0.000 (0.0-0.012) X10*3/uL Nucleated RBC % (auto) 0.0 (0.0-0.2) /100WBC Sodium 140 (135-145) mmol/L Potassium 3.5 (3.3-5.1) mmol/L Chloride 107 (96-108) mmol/L Carbon Dioxide 23 (22-29) mmol/L Anion Gap 14 (12-20) BUN 10 (9-16) mg/dL Creatinine 0.69 (0.5-1.4) mg/dL Estim Creat Clear Calc 98.2 Estimated GFR > 60 Random Glucose 117 H (60-115) mg/dL Calcium 9.3 (8.4-10.2) mg/dL Total Bilirubin 0.6 (0.0-1.0) mg/dL AST 70 H (5-31) U/L ALT 86 H (0-31) U/L Alkaline Phosphatase 159 H (39-117) U/L Total Protein 8.1 H (6.5-8.0) g/dL Albumin 3.9 (3.5-5.0) g/dL Lipase 30 (8-78) U/L Beta HCG, Quant < 2 mIU/mL Urine Color Urine Appearance Urine pH (5.0-9.0) Ur Specific [place] (1.005-1.025) Urine Protein (Neg-Trace) mg/dL Urine Glucose (UA) (Negative) mg/dL Urine Ketones (Negative) mg/dL Urine Blood (Negative) Urine Nitrite (Negative) Ur Leukocyte Esterase (Negative) Urine RBC (0-2) /HPF Urine WBC (0-5) /HPF Ur Squamous Epith Cells (0-2) /HPF Urine Bacteria (None Seen) Hyaline Casts (0-2) /LPF 01/15/23 Range/Units 08:48 WBC (4.8-10.8) X10*3/uL RBC (4.20-5.50) X10*6/uL Hgb (12.0-16.0) g/dl Hct (37.0-47.0) % MCV (80.0-98.0) fL MCH (27.0-33.0) pg MCHC (31.0-35.0) g/dl RDW (11.0-16.0) % Plt Count (160-400) X10*3/uL MPV (9.4-12.3) fL Immature Gran % (Auto) (0.0-0.4) % Neut % (Auto) (45-73) % Lymph % (Auto) (20-40) % [place] % (Auto) (2-11) % Eos % (Auto) (0-4) % Baso % (Auto) (0-2) % Lymph # (Auto) (1.2-4.9) X10*3/uL [place] # (Auto) (0.1-1.2) X10*3/uL Eos # (Auto) (0.0-0.4) X10*3/uL Baso # (Auto) (0.0-0.2) X10*3/uL Abs Immat Gran (auto) (0.00-0.03) X10*3/uL Absolute Neuts (auto) (2.0-8.3) x10*3/uL Absolute Nucleated RBC (0.0-0.012) X10*3/uL Nucleated RBC % (auto) (0.0-0.2) /100WBC Sodium (135-145) mmol/L Potassium (3.3-5.1) mmol/L Chloride (96-108) mmol/L Carbon Dioxide (22-29) mmol/L Anion Gap (12-20) BUN (9-16) mg/dL Creatinine (0.5-1.4) mg/dL Estim Creat Clear Calc Estimated GFR Random Glucose (60-115) mg/dL Calcium (8.4-10.2) mg/dL Total Bilirubin (0.0-1.0) mg/dL AST (5-31) U/L ALT (0-31) U/L Alkaline Phosphatase (39-117) U/L Total Protein (6.5-8.0) g/dL Albumin (3.5-5.0) g/dL Lipase (8-78) U/L Beta HCG, Quant mIU/mL Urine Color [place] Urine Appearance Clear Urine pH 5.0 (5.0-9.0) Ur Specific [place] 1.010 (1.005-1.025) Urine Protein 100 (2+) H (Neg-Trace) mg/dL Urine Glucose (UA) 100 H (Negative) mg/dL Urine Ketones Negative (Negative) mg/dL Urine Blood Small (1+) H (Negative) Urine Nitrite Positive H (Negative) Ur Leukocyte Esterase Negative (Negative) Urine RBC 3-5 H (0-2) /HPF Urine WBC 0-5 (0-5) /HPF Ur Squamous Epith Cells 0-2 (0-2) /HPF Urine Bacteria None Seen (None Seen) Hyaline Casts 0-2 (0-2) /LPF Independent Interpretation I performed an independent interpretation of an: CT Scan Interpretation: My independent interpretation is as follows: Right ureteral stone at the UVJ, mild right hydronephrosis and hydroureter Radiology Impression Discussion of test interpretation with radiology: I have reviewed the radiologist's reading. Radiologist Impression: CT abdomen pelvis wo IV con IMPRESSION: 1. Mild prominence of the right-sided collecting system secondary to a 4 mm calculus within the right ureterovesical junction. 2. Diffusely decreased liver attenuation suggesting hepatic steatosis. Correlation with liver enzymes recommended. Fleischner guidelines were followed. Dictated By:Baltazar Walker MD External Record Review External record reviewed: Inpatient record (Surgical notes) Prescription Management I considered prescription management with: Pain Medication Chronic Conditions Patient?s care impacted by: Diabetes Medications Administered Discontinued Medications Generic Name Dose Route Start Last Admin Trade Name Freq PRN Reason Stop Dose Admin Sodium Chloride 1,000 mls @ 999 mls/hr 01/15/23 07:54 01/15/23 09:42 Ns IV 01/15/23 08:54 Infused .Q1H1M STA Infusion Ketorolac Tromethamine 15 mg 01/15/23 07:54 01/15/23 08:08 Ketorolac Tromethamine 15 Mg/Ml Vial IVPUSH 01/15/23 07:55 15 mg ONCE STA Administration Ondansetron HCl 4 mg 01/15/23 07:54 01/15/23 08:08 Ondansetron Hcl 4 Mg/2 Ml Vial IVPUSH 01/15/23 07:55 4 mg ONCE ONE Administration Discharge Plan Discharge Clinical Impression: Renal colic on right side, Calculus of distal right ureter Patient Disposition: Home, Self-Care Instructions: Ureteral Stones (ED) Additional Instructions: Your blood work was unremarkable except for mild elevation in your liver test (AST, ALT and alkaline phosphatase). You had similar elevations in the past and this is caused by fatty liver. The treatment is to try to lose weight. Also, you will need liver test yearly by your doctor to make sure this is not getting worse. The CT scan of your abdomen pelvis revealed a 4 mm ureteral stone (stone in the tube that connects the kidney to the bladder) at the ureteral vesicular junction (this is where the tube connects to the bladder). Take ibuprofen 200 mg pills, 2 pills every 6 hours as needed for pain. Take Tylenol (acetaminophen) 500 mg, 2 pills every 4-6 hours as needed for pain. For pain not relieved by ibuprofen or Tylenol take morphine 15 mg pills, 1 pill every 4 hours as needed for pain. This medication will make you sleepy, do not drive or work while taking this medication. Morphine is a narcotic medication and can be addicting. If you are concerned about addiction you can ask the pharmacist for less pills or do not get this prescription filled. Take Flomax (tamsulosin) 0.4 mg once a day for the next 2 weeks or until you pass the stone. This medication helps relax the ureter and may help you pass the stone sooner. Take Zofran ODT 4 mg pills, 1 pill dissolved in your mouth every 8 hours as needed for nausea and vomiting. Make sure you strain your urine, if you catch a stone bring it to urologist. Follow-up with your urologist, Dr. Woodson in 1-2 weeks. Please return to the emergency department if your symptoms get worse or if you develop any symptoms that are concerning to you. Prescriptions: New tamsulosin [Flomax] 0.4 mg capsule 0.4 mg PO DAILY Qty: 14 0RF morphine 15 mg tablet 15 mg PO Q4-6H PRN (Reason: pain) Qty: 10 0RF Rx Instructions: The patient may ask for partial fill; Partial Fill upon patient request. ondansetron 4 mg tablet,disintegrating 4 mg PO Q6-8H PRN (Reason: nausea and vomiting) Qty: 14 0RF No Action albuterol sulfate 90 mcg/actuation HFA aerosol inhaler 2 puff inhalation Q4-6H PRN (Reason: shortness of breath or wheezing) Qty: 6.7 3RF Rx Instructions: substitution allowed omeprazole 20 mg capsule,delayed release(DR/EC) 20 mg PO DAILY mometasone 0.1 % cream 1 appl topical DAILY PRN (Reason: skin irritation) Qty: 15 0RF [place] 0.5 mg/0.5 mL pen injector 0.25 mg subcut QWEEK 28 Days Qty: 2 1RF Rx Instructions: administer weeks 1 through 4 of therapy cholecalciferol (vitamin D3) 1,250 mcg (50,000 unit) capsule 1,250 mcg PO QWEEK 90 Days Qty: 13 0RF tamsulosin [Flomax] 0.4 mg capsule 0.4 mg PO BEDTIME Qty: 21 0RF
[2023-01-15] MEDS: Ketorolac Tromethamine 15 MG/ML VIAL IVPUSH (08:08)
[2023-01-15] MEDS: ondansetron HCL 4 MG/2 ML VIAL IVPUSH (08:08)
[2023-01-15] MEDS: 0.9 % Sodium Chloride 1,000 ML 999 ML IV (08:08)
[2023-01-15 08:54] VITALS: BP 112/73; PULSE 61; RESP 20; TEMP 36.6; O2SAT 94
[2023-01-15 10:28] VITALS: BP 118/74; PULSE 64; RESP 18; O2SAT 94
--- NOTE | 2023-01-15 10:34 | PC.NURSE ---
pt aox4, reports that medication helped with nausea but they still feel some pain/pressure in their lower abdomen. fluids have finished infusing per MAR.
== END 2023-01-15 11:31 | disposition home or self-care (01) ==
PROVIDERS: Emergency Provider Emergency Medicine Emergency Medical Services; PCP Internal Medicine
DX: N20.2 Calculus of kidney with calculus of ureter (principal); Z90.49 Acquired absence of other specified parts of digestive tract; Z87.442 Personal history of urinary calculi
CPT/HCPCS: 36415; 74176; 80053; 81001; 83690; 84702; 85025; 87086; 96361; 96374; 96375; 99284; J1885; J2405

== ENCOUNTER 2023-02-18 18:12 | Emergency (ER) | payer OTHER, SELFPAY ==
[2023-02-18 18:29] VITALS: BP 135/77; PULSE 73; RESP 18; TEMP 36.8; O2SAT 98; BMI 34.4
--- NOTE | 2023-02-18 18:29 | ED.GENADULT ---
HPI - General Adult General Chief complaint: Urogenital-Female Stated complaint: kidney stone pain Time Seen by Provider: 02/18/23 19:48 Source: patient Mode of arrival: ambulatory Limitations: no limitations History of Present Illness MD complaint: R flank pain Onset (ago): day(s) (1) Location: abdomen and right Radiation: abdomen and flank Severity: moderate Quality: stabbing and aching Pain Consistency: intermittent Relieving factors: medication Exacerbating factors: none Associated symptoms: nausea/vomiting and other (dysuria) Treatments prior to arrival: none Related Data Home Medications Medication Instructions Recorded Confirmed omeprazole 20 mg capsule,delayed 20 mg PO DAILY 04/25/20 11/18/22 release Previous Rx's Medication Instructions Recorded albuterol sulfate 90 mcg/actuation 2 puff inhalation Q4-6H PRN 06/18/21 aerosol inhaler shortness of breath or wheezing #6.7 grams mometasone 0.1 % topical cream 1 appl topical DAILY PRN skin 08/31/22 irritation #15 grams cholecalciferol (vitamin D3) 1,250 1,250 mcg PO QWEEK 3 months #13 09/27/22 mcg (50,000 unit) capsule caps tamsulosin 0.4 mg capsule (Flomax) 0.4 mg PO BEDTIME to help pass 11/18/22 urinary tract stones #21 caps semaglutide (weight loss) 0.5 0.25 mg (0.25 mL) subcut QWEEK 4 11/25/22 mg/0.5 mL subcutaneous pen injector weeks #2 mL morphine 15 mg immediate release 15 mg PO Q4-6H PRN pain #10 tabs 01/15/23 tablet ondansetron 4 mg disintegrating 4 mg PO Q6-8H PRN nausea and 01/15/23 tablet vomiting #14 tabs tamsulosin 0.4 mg capsule (Flomax) 0.4 mg PO DAILY #14 caps 01/15/23 ketorolac 10 mg tablet 10 mg PO TID PRN pain 5 days #15 02/18/23 tabs Allergies Allergy/AdvReac Type Severity Reaction Status Date / Time No Known Allergies Allergy Unknown Verified 11/25/22 15:07 Review of Systems Review of Systems: Constitutional : No Weight loss, No Fever, No Chills ENT/Mouth : No sore throat, No Rhinorrhea Eyes: No Swelling, No Redness Cardiovascular : No Chest Pain, No SOB, NoEdema Respiratory : No Cough, No Sputum, No Wheezing Gastrointestinal : Positive Nausea, Positive Vomiting, no Diarrhea, positive abdominal Pain, No Hematochezia, No Melena Genitourinary : pos Dysuria, No Urinary Frequency, No Hematuria, No Urgency Musculoskeletal : No joint pain, No Myalgias, No Joint Swelling Skin : No Skin Lesions, No rash Neuro : No Weakness, No Numbness, No Dizziness, No Headache Psych : No Anxiety/Panic, No Depression All other systems reviewed and are negative. [facility] Past Medical History Attestation statement: The following information was validated with the patient. Source: old records reviewed Medical History section wound complication (~12/25/06) Dermatitis of vulva Elevated liver transaminase level Family history of gallstones Gallstones without obstruction of gallbladder Impaired fasting glucose Obesity (BMI 30-39.9) Obstruction of right ureteropelvic junction due to stone Skin tag of female perineum Ureteral calculus, right Surgical History Gallstones without obstruction of gallbladder Hx laparoscopic cholecystectomy (10/14/22) Hx of appendectomy Hx of section Family History Family History Father Diabetes mellitus HTN (hypertension) Hyperlipidemia Acute myocardial infarction Esophageal cancer Mother Depression Mental health disorder Social History Social History Housing: House Alcohol intake: never Patient Tobacco Use Status: Never used Tobacco e-Cigarette/Vaping Use: Never Used Advance Directives: No Advance Directives Information Provided: No Patient : No Current occupational status: employed Cognitive needs: No Hearing needs: No Vision needs: No Physical Exam ED Vital Signs: Vital Signs - 24 hr 02/18/23 18:29 02/18/23 19:45 Temperature 98.3 F 98.2 F Pulse Rate 73 80 Respiratory Rate 18 12 Blood Pressure 135/77 129/79 Pulse Oximetry 98 98 Oxygen Delivery Method Room Air Room Air BMI result Body Mass Index 34.4 Appearance: Alert. Oriented X3. No acute distress. Eyes: Pupils equal, round and reactive to light. ENT: Pharynx normal. Neck: Normal inspection. Neck supple. CVS: Normal heart rate and rhythm. Pulses normal. Respiratory: No respiratory distress. Breath sounds normal. Abdomen: Soft and nontender. Back: no CVA ttp on R side Skin: Skin warm and dry. Normal skin color. Normal skin turgor. Extremities: No lower extremity edema. No calf ttp Neuro: Oriented X 3. No motor deficit. No sensory deficit. Course Course Course Narrative: This is a rapid medical exam: Additional HPI, ROS, PE not included below will be deferred to primary provider. Patient is a 47-year-old female presenting to the emergency department with bilateral flank pain, lower back pain, nausea and vomiting since yesterday. Reports urinary urgency and oliguria, lower abdominal pressure. Plan: UA, labs Reevaluation(s) Reevaluation #1: UA negative, Cr normal Reevaluation #2: pain improved feels better stable for DC Medications Administered Discontinued Medications Generic Name Dose Route Start Last Admin Trade Name Freq PRN Reason Stop Dose Admin Sodium Chloride 1,000 mls @ 999 mls/hr 02/18/23 20:45 02/18/23 22:04 Ns IV 02/18/23 21:45 Infused .Q1H1M MORENO Infusion Ketorolac Tromethamine 15 mg 02/18/23 20:32 02/18/23 20:54 Ketorolac Tromethamine 15 Mg/Ml Vial IVPUSH 02/18/23 20:33 15 mg ONCE ONE Administration Morphine Sulfate 4 mg 02/18/23 20:32 02/18/23 20:53 Morphine Sulfate 4 Mg/Ml Cartridge IVPUSH 02/18/23 20:33 4 mg ONCE ONE Administration Protocol Ondansetron HCl 4 mg 02/18/23 20:32 02/18/23 20:53 Ondansetron Hcl 4 Mg/2 Ml Vial IVPUSH 02/18/23 20:33 4 mg ONCE ONE Administration Procedures Procedure Narrative Procedure Narrative: US - no hydronephrosis no stone seen on bedside US 947pm Medical Decision Making Medical Decision Making MDM Narrative: 47 yo female hx of R renal colic in past 4mm stone on last CT scan 01/15 at [facility] here with R flank pain x 1 day at this time no fevers, no vomiting here will need labs, UA and will obtain bedside US to asess for hydronephrosis. She has no RLQ pain to suggest appendicitis she is not toxic appearing. Differential Diagnosis Differential Diagnoses: The differential diagnosis associated with the presentation includes UTI, renal colic, flank pain doubt appendicitis has no RLQ pain Admission/Observation Consideration of admission/observation: Escalation of care including admission/observation considered tolerating PO, no obstructive signs, pain well controlled can be managed as outpatient Lab Data MDM Lab Attestation statement: I reviewed the patient's lab results. 02/18/23 19:52 02/18/23 19:52 Labs: Lab Results 02/18/23 02/18/23 02/18/23 Range/Units 19:52 19:52 19:52 WBC 8.7 (4.8-10.8) X10*3/uL RBC 4.93 (4.20-5.50) X10*6/uL Hgb 13.7 (12.0-16.0) g/dl Hct 41.9 (37.0-47.0) % MCV 85.0 (80.0-98.0) fL MCH 27.8 (27.0-33.0) pg MCHC 32.7 (31.0-35.0) g/dl RDW 14.1 (11.0-16.0) % Plt Count 297 (160-400) X10*3/uL MPV 9.2 L (9.4-12.3) fL Immature Gran % (Auto) 0.3 (0.0-0.4) % Neut % (Auto) 64.8 (45-73) % Lymph % (Auto) 27.8 (20-40) % [place] % (Auto) 5.6 (2-11) % Eos % (Auto) 1.0 (0-4) % Baso % (Auto) 0.5 (0-2) % Lymph # (Auto) 2.4 (1.2-4.9) X10*3/uL [place] # (Auto) 0.5 (0.1-1.2) X10*3/uL Eos # (Auto) 0.1 (0.0-0.4) X10*3/uL Baso # (Auto) 0.0 (0.0-0.2) X10*3/uL Abs Immat Gran (auto) 0.03 (0.00-0.03) X10*3/uL Absolute Neuts (auto) 5.7 (2.0-8.3) x10*3/uL Absolute Nucleated RBC 0.000 (0.0-0.012) X10*3/uL Nucleated RBC % (auto) 0.0 (0.0-0.2) /100WBC Sodium 141 (135-145) mmol/L Potassium 3.8 (3.3-5.1) mmol/L Chloride 106 (96-108) mmol/L Carbon Dioxide 23 (22-29) mmol/L Anion Gap 16 (12-20) BUN 8 L (9-16) mg/dL Creatinine 0.68 (0.5-1.4) mg/dL Estim Creat Clear Calc 105.2 Estimated GFR > 60 Random Glucose 94 (60-115) mg/dL Calcium 9.2 (8.4-10.2) mg/dL Total Bilirubin 0.6 (0.0-1.0) mg/dL AST 57 H (5-31) U/L ALT 75 H (0-31) U/L Alkaline Phosphatase 146 H (39-117) U/L Total Protein 8.0 (6.5-8.0) g/dL Albumin 4.0 (3.5-5.0) g/dL Beta HCG, Quant < 2 mIU/mL Urine Color Dark Yellow Urine Appearance Clear Urine pH 6.5 (5.0-9.0) Ur Specific [place] 1.015 (1.005-1.025) Urine Protein Trace (Neg-Trace) mg/dL Urine Glucose (UA) Negative (Negative) mg/dL Urine Ketones Negative (Negative) mg/dL Urine Blood Trace H (Negative) Urine Nitrite See Note (Negative) Ur Leukocyte Esterase Trace H (Negative) Urine RBC 0-2 (0-2) /HPF Urine WBC 0-5 (0-5) /HPF Ur Squamous Epith Cells 0-2 (0-2) /HPF Urine Bacteria None Seen (None Seen) Hyaline Casts 0-2 (0-2) /LPF Independent Interpretation I performed an independent interpretation of an: Ultrasound Interpretation: no stone or hydronephrosis seen External Record Review External record reviewed: Outpatient record and Prior outpatient radiology Prescription Management I considered prescription management with: Pain Medication and Other toradol Discharge Plan Discharge Clinical Impression: Acute flank pain Patient Disposition: Home, Self-Care Instructions: Flank Pain (ED) Additional Instructions: return for fevers, vomiting, worsening pain, inability to urinate or any other concerns. talk to your primary care doctor and urologist next week avoid motrin, advil, ibuprofen, naprosyn, aleve while taking toradol Prescriptions: New ketorolac 10 mg tablet 10 mg PO TID PRN (Reason: pain) 5 Days Qty: 15 0RF Rx Instructions: given IV toradol in department No Action albuterol sulfate 90 mcg/actuation HFA aerosol inhaler 2 puff inhalation Q4-6H PRN (Reason: shortness of breath or wheezing) Qty: 6.7 3RF Rx Instructions: substitution allowed tamsulosin [Flomax] 0.4 mg capsule 0.4 mg PO DAILY Qty: 14 0RF morphine 15 mg tablet 15 mg PO Q4-6H PRN (Reason: pain) Qty: 10 0RF Rx Instructions: The patient may ask for partial fill; Partial Fill upon patient request. ondansetron 4 mg tablet,disintegrating 4 mg PO Q6-8H PRN (Reason: nausea and vomiting) Qty: 14 0RF omeprazole 20 mg capsule,delayed release(DR/EC) 20 mg PO DAILY mometasone 0.1 % cream 1 appl topical DAILY PRN (Reason: skin irritation) Qty: 15 0RF [place]gov[place] 0.5 mg/0.5 mL pen injector 0.25 mg subcut QWEEK 28 Days Qty: 2 1RF Rx Instructions: administer weeks 1 through 4 of therapy cholecalciferol (vitamin D3) 1,250 mcg (50,000 unit) capsule 1,250 mcg PO QWEEK 90 Days Qty: 13 0RF tamsulosin [Flomax] 0.4 mg capsule 0.4 mg PO BEDTIME Qty: 21 0RF Interventions: ED Discharge Assessment Last Done: 02/18/23 22:10 Discharge Date/Time: 02/18/23 22:12
[2023-02-18 19:45] VITALS: BP 129/79; PULSE 80; RESP 12; TEMP 36.8; O2SAT 98
[2023-02-18 19:58] LABS: MANUAL DIFF FLAG NO
[2023-02-18 20:01] LABS: Basophils Percent Auto 0.5 % (0-2); Eosinophils Absolute Auto 0.1 X10*3/uL (0.0-0.4); Hematocrit 41.9 % (37.0-47.0); Hemoglobin 13.7 g/dl (12.0-16.0); Imm Gran Abs Auto 0.03 X10*3/uL (0.00-0.03); Imm Gran Pct Auto 0.3 % (0.0-0.4); Lymphocytes Absolute Auto 2.4 X10*3/uL (1.2-4.9); Lymphocytes Percent Auto 27.8 % (20-40); Mean Corpuscular HGB Conc 32.7 g/dl (31.0-35.0); Mean Corpuscular Hemoglobin 27.8 pg (27.0-33.0); Mean Platelet Volume 9.2 fL (9.4-12.3); Monocytes Absolute Auto 0.5 X10*3/uL (0.1-1.2); Monocytes Percent Auto 5.6 % (2-11); Neutrophils Absolute Auto 5.7 x10*3/uL (2.0-8.3); Neutrophils Percent Auto 64.8 % (45-73); Platelet Count 297 X10*3/uL (160-400); Red Blood Count 4.93 X10*6/uL (4.20-5.50); Red Cell Distribution Width 14.1 % (11.0-16.0); White Blood Count 8.7 X10*3/uL (4.8-10.8)
[2023-02-18 20:23] LABS: Appearance Urine Clear; Color Urine Dark Yellow; Glucose Urine UA Negative (Negative); Leukocyte Esterase Urine Trace (Negative); PH 6.5 (5.0-9.0); Specific Gravity - Urine 1.015 (1.005-1.025); UMIC TRIGGER UACC YES; Urine Blood Trace (Negative); Urine Ketones Negative (Negative); Urine Protein Trace mg/dL (Neg-Trace)
[2023-02-18 20:41] LABS: Alanine Aminotransferase 75 U/L (0-31); Alkaline Phosphatase 146 U/L (39-117); Anion Gap 16 (12-20); Aspartate Amino Transferase 57 U/L (5-31); Bilirubin Total 0.6 mg/dL (0.0-1.0); Blood Urea Nitrogen 8 mg/dL (9-16); Calcium 9.2 mg/dL (8.4-10.2); Carbon Dioxide 23 mmol/L (22-29); Chloride 106 mmol/L (96-108); Creatinine Clr Calc Pharmacy 105.2; Estimated Glomerular Filt Rate > 60; Glucose Random 94 mg/dL (60-115); Potassium 3.8 mmol/L (3.3-5.1); Sodium 141 mmol/L (135-145)
[2023-02-18 20:42] LABS: HCG Quantitative < 2 mIU/mL
[2023-02-18] MEDS: 0.9 % Sodium Chloride 1,000 ML 999 ML IV (20:49)
[2023-02-18] MEDS: ondansetron HCL 4 MG/2 ML VIAL IVPUSH (20:53)
[2023-02-18] MEDS: Morphine Sulfate 4 MG/ML CARTRIDGE IVPUSH (20:53)
[2023-02-18] MEDS: Ketorolac Tromethamine 15 MG/ML VIAL IVPUSH (20:54)
[2023-02-18 20:57] LABS: Bacteria Urine None Seen (None Seen); Hyaline Casts Urine 0-2 /LPF (0-2); RBC Urine 0-2 /HPF (0-2); Squamous Epithelial Cell Urine 0-2 /HPF (0-2); WBC Urine 0-5 /HPF (0-5)
[2023-02-18 22:09] VITALS: BP 113/69; PULSE 68; RESP 16; TEMP 36.4; TEMP 36.6
[2023-02-18 22:14] VITALS: BP 113/69; PULSE 68; RESP 18; TEMP 36.4; O2SAT 96
== END 2023-02-18 22:12 | disposition home or self-care (01) ==
PROVIDERS: Registered Nurse Emergency; Emergency Provider Emergency Medicine; PCP Internal Medicine
DX: R10.9 Unspecified abdominal pain (principal); R11.2 Nausea with vomiting, unspecified; E66.9 Obesity, unspecified; Z68.34 Body mass index [BMI] 34.0-34.9, adult
CPT/HCPCS: 36415; 80053; 81001; 81003; 84702; 85025; 96361; 96374; 96375; 99284; J1885; J2270; J2405

== ENCOUNTER 2023-04-28 14:54 | Outpatient (AMB) | payer OTHER, SELFPAY ==
--- NOTE | 2023-04-28 14:56 | A.OFFPC_ITS ---
Vital Signs 04/28/23 15:00 Height 5 ft 3 in Weight 200 lb BMI 35.4 BP 112/60 Blood Pressure Location Rt brachial Position Sitting Pulse 82 Pulse Source Pulse Oximeter Pulse Oximetry (%) 97 Oxygen Delivery Method Room Air Intake Visit Reasons: fatigue and eye feels very tired Intake Note: pt is here today for fatigue and eye feels very tired Allergies No Known Allergies Allergy (Unknown, Verified 04/28/23 15:21) Medication List - Last Reconciled 04/28/23 by Skye Cameron MD albuterol sulfate 90 mcg/actuation 2 puffs inhalation Q4-6H PRN hydroxyzine HCl 10 mg PO BEDTIME PRN ketorolac 10 mg PO TID PRN 5 days mometasone 0.1% 1 appl topical DAILY PRN morphine 15 mg PO Q4-6H PRN omeprazole 20 mg PO DAILY semaglutide (weight loss) 0.25 mg (0.125 mL) subcut QWEEK 4 weeks Tobacco use date assessed: 04/28/23 Dental Screening Dental Screen Date: 04/28/23 Did you have a dental visit in the last 12 months?: No Did you have a dental problem in the last 6 months where you did not have access to dental care?: No Was dental information given to patient?: Patient has dentist HPI fatigue and eye feels very tired HPI Details 48-year-old lady here today complaining of feeling tired all the time, no energy. Complains of excessive daytime sleepiness, wakes up tired, has been told that she snores a lot and stops breathing at night, sometimes would wake up choking. She has gained a lot of weight, , admits to not really following recommended diet and has not gotten any regular exercise as she is taking care of her father who is currently in hospice care. Last labs showed no anemia, normal glucose level and mild and elevated transaminases. She has been trying to lose weight with semaglutide, has been on 0.25 mg every week approximately a month ago, unable to get a next higher does due to being at out of stock, would like to see if she can try the 1 mg dose instead. Did not have any adverse side effects when she started taking the medication. Laboratory Tests 02/18/23 19:52 WBC 8.7 Hgb 13.7 Hct 41.9 Sodium 141 Potassium 3.8 Chloride 106 Carbon Dioxide 23 Anion Gap 16 BUN 8 L Creatinine 0.68 Estim Creat Clear Calc 105.2 Estimated GFR > 60 Random Glucose 94 Calcium 9.2 Total Bilirubin 0.6 AST 57 H ALT 75 H Alkaline Phosphata se 146 H Total Protein 8.0 Albumin 4.0 PFSH Medical History (Updated 04/28/23 @ 17:57 by Skye Cameron MD) Facial dermatitis Kidney stones Excessive daytime sleepiness Witnessed apneic spells Difficulty sleeping Gallstones without obstruction of gallbladder Obesity (BMI 30-39.9) Ureteral calculus, right Obstruction of right ureteropelvic junction due to stone Impaired fasting glucose Elevated liver transaminase level Surgical History Hx laparoscopic cholecystectomy (10/14/22) Hx of section Gallstones without obstruction of gallbladder Hx of appendectomy Family History Father Diabetes mellitus HTN (hypertension) Hyperlipidemia Acute myocardial infarction Esophageal cancer Mother Depression Mental health disorder Social History Housing: House Alcohol intake: never Patient Tobacco Use Status: Never used Tobacco e-Cigarette/Vaping Use: Never Used Current occupational status: employed Cognitive needs: No Hearing needs: No Vision needs: No Questionnaire Thrive Questionnaire Date Thrive assessed: 08/16/22 AUDIT C Alcohol Use Questionnaire (AUDIT-C) 1. How often do you have a drink containing alcohol?: Monthly or less 2. How many drinks containing alcohol do you have on a typical day when you are drinking?: 1 or 2 Total Score: 1 FLORENCIO-7 AMB Questionnaire FLORENCIO-7 Date FLORENCIO - 7 assessed: 08/16/22 Source: Developed by Drs. Pj Balderas, Gisel De Jesus, Agustin Roa and colleagues, with an educational richelle from [employer]. [place] Sleepiness Scale Questions Sitting and reading: moderate chance of dozing Watching TV: high chance of dozing Sitting inactive in a theater, movie etc.: high chance of dozing As a passenger in a car for an hour without break: high chance of dozing Lying down in the afternoon when circumstances permit: high chance of dozing Sitting and talking to someone: would never doze Sitting quietly after lunch without alcohol: high chance of dozing In a car, while stopped for a few minutes in the traffic: high chance of dozing ESS < 10: normal, ESS > 12: pathologic: 20 Review of Systems Const Denies body aches and Denies headache(s) ENT Denies dizziness, Denies headache(s) and Denies nasal congestion Card Denies chest pain, Denies lightheadedness and Denies dyspnea Resp Denies chest congestion, Denies cough and Denies dyspnea GI Denies abdominal pain, Denies change in bowel habits and Denies heartburn Musc Reports no additional complaints Neuro Denies dizziness and Denies headache(s) Psych Reports no additional complaints Endo Reports no additional complaints [place]/Lymph Reports no additional complaints Physical exam (Primary Care) Vital Signs: Last Vital Signs Pulse 82 04/28/23 15:00 BP 112/60 04/28/23 15:00 Pulse Ox 97 04/28/23 15:00 Oxygen Delivery Method Room Air 04/28/23 15:00 BMI result Body Mass Index 35.4 Tobacco/Smoking Status: Tobacco use Status Tobacco use date assessed 04/28/23 04/28/23 15:03 Patient Tobacco Use Status Never used Tobacco 04/28/23 15:03 e-Cigarette/Vaping Use Never Used 04/28/23 15:03 Thrive Assessment: Date of Thrive Assessment Date Thrive assessed 08/16/22 04/28/23 15:03 Const Other: Obese, alert oriented x3, no acute distress noted ambulatory normal gait Orientation/consciousness: patient oriented x3 [facility] Head: Yes normocephalic and Yes atraumatic Face and sinus: Yes face symmetric Mouth: Normal oral and palatal mucosa present, tongue normal and moist mucous membranes Eyes General: appearance normal, both eyes and all related structures Eyelids: Yes eyelid abnormality (Slight sagging of right upper eyelid noted) Neck Neck: Yes normal visual inspection, Yes full ROM, Yes no lymphadenopathy and Yes supple Resp Auscultation: clear to auscultation bilaterally Cardio Other: S1-S2 present, regular rate and rhythm GI Inspection: Yes obesity Palpation (GI): Soft to palpation, nontender, no guarding and no masses Back/Spine/Pelvis Back: No back tenderness Skin General skin exam: no rashes or lesions noted Neuro General: patient oriented x3, gait normal, tone normal, moves all extremities, Normal light touch and pain sensation, no focal motor deficits and CN's II-XI intact bilaterally Extrem General: Yes full ROM, Yes no joint enlargement, Yes no clubbing, cyanosis or edema, Yes no pedal edema, Yes no calf tenderness and Yes normal gait Office Procedures Flu Questionnaire Does the patient have a severe egg allergy?: No Does the patient have severe life threatening allergies?: No Does the patient have a fever or illness today?: No Has the patient ever had Guillain-[place] Syndrome?: No Has the patient ever had any past reaction to a flu shot?: No Immunizations flu vacc [id number] 6mos up(PF) 60 mcg(15 mcgx4)/0.5 mL IM syringe Performing Provider: Skye Cameron MD Performing Location: [facility] Administered by: Kirsten Claire CMA on 04/28/23 15:38 Dose Route Admin Location Dispensed Lot Number Expiration Date [employer] 0.5 mL IM Right Deltoid 0.5 mL [id number] 01/15/24 [id number] [place]. com. cn VIS Given Date VIS Provided VIS Publication Date 04/28/23 Single Vaccine 21 Eligibility Eligibility Date Funding Source Not [facility] Eligible 04/28/23 Private Assessment and Plan Assessment & Plan (1) Difficulty sleeping: Code(s): G47.9 - Sleep disorder, unspecified Plan: Referred for sleep study, weight loss recommended, sleep on her side. May try on hydroxyzine 10 mg per tablet to take 1 tablet at bedtime do not take it with other benzodiazepines/angiolytics, did not take with alcohol do not take with Be nadryl or other antihistamines like Claritin, Zyrtec, or Juliet (2) Excessive daytime sleepiness: Code(s): G47.19 - Other hypersomnia Plan: Referred for sleep study (3) Witnessed apneic spells: Code(s): R06.81 - Apnea, not elsewhere classified Plan: Referred for sleep study (4) Vitamin D deficiency: Code(s): E55.9 - Vitamin D deficiency, unspecified Plan: Will check vitamin-D level, in the meantime advised to start taking [id number] vitamin-D 3 2000 units daily (5) Obesity (BMI 30-39.9): Code(s): E66.9 - Obesity, unspecified Plan: Discussed need to increase activity and wt reduction. Recommended focusing on improving your health instead of dieting. : Eat Mediterranean diet, limit foods high in fat, sugar, and calories, eat slowly, pay attention to portion sizes, plan your meals ahead of time, start regular physical activity 150 minutes of moderate intensity exercise or 90 minutes/week of vigorous exercise and increase water intake. Will start back again on semaglutide, 1 mg per injection, to take as directed weekly . Discontinue using medicine any abdominal cramping nausea vomiting jaundice alteration in GI habits occurs if (6) Fatigue: Code(s): R53.83 - Other fatigue Qualifiers: Fatigue type: other Qualified Code(s): R53.83 - Other fatigue Plan: Will check CBC, TSH with reflex free T4, vitamin-D left. Orange for sleep study (7) Flu vaccine need: Code(s): Z23 - Encounter for immunization Plan: Shot given today (8) Facial dermatitis: Code(s): L30.9 - Dermatitis, unspecified Plan: Prescription refill sent for mometasone 0.1%, apply sparingly to skin around corners of mouth once a day for no more than 10 days at a time Orders: Orders TSH reflex Free T4 Today E55.9 - Vitamin D deficiency, unspecified, E66.9 - Obesity, unspecified, R53.83 - Other fatigue, Z13.220 - Encounter for screening for lipoid disorders Vitamin D 25-OH Total Today E55.9 - Vitamin D deficiency, unspecified, E66.9 - Obesity, unspecified, R53.83 - Other fatigue, Z13.220 - Encounter for screening for lipoid disorders Lipid Panel Today E55.9 - Vitamin D deficiency, unspecified, E66.9 - Obesity, unspecified, R53.83 - Other fatigue, Z13.220 - Encounter for screening for lipoid disorders Influenza [id number] Immunization Today Z23 - Encounter for immunization Referrals Sleep Medicine Referral G47.19 - Other hypersomnia, G47.9 - Sleep disorder, unspecified, R06.81 - Apnea, not elsewhere classified Medications: New hydroxyzine HCl 10 mg PO BEDTIME PRN 30 tabs 0RF insomnia Changed From semaglutide (weight loss) administer weeks 1 through 4 of therapy 0.25 mg (0.25 mL) subcut QWEEK 4 weeks 2 mL 1RF To semaglutide (weight loss) administer weeks 1 through 4 of therapy 0.25 mg (0.125 mL) subcut QWEEK 0.5 mL 1RF 4 weeks Refilled mometasone 0.1% 1 appl topical DAILY PRN 15 grams 0RF skin irritation Coding Level of Care Code Est Pt Level 4 (37307) Diagnoses Difficulty sleeping G47.9 Excessive daytime sleepiness G47.19 Witnessed apneic spells R06.81 Vitamin D deficiency E55.9 Obesity (BMI 30-39.9) E66.9 Other fatigue R53.83 Fatigue type: other Flu vaccine need Z23 Facial dermatitis L30.9
[2023-04-28 15:00] VITALS: BP 112/60; PULSE 82; O2SAT 97; BMI 35.4
== END 2023-04-28 15:55 | disposition home or self-care (01) ==
PROVIDERS: PCP Internal Medicine; Visit Provider Internal Medicine
DX: G47.9 Sleep disorder, unspecified (principal); G47.19 Other hypersomnia; E66.9 Obesity, unspecified; Z68.35 Body mass index [BMI] 35.0-35.9, adult; R06.81 Apnea, not elsewhere classified; E55.9 Vitamin D deficiency, unspecified; Z23 Encounter for immunization; R53.83 Other fatigue; L30.9 Dermatitis, unspecified
CPT/HCPCS: 90471; 90686; 99214

== ENCOUNTER 2023-05-12 10:29 | Outpatient (AMB) | payer OTHER, SELFPAY ==
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
[2023-05-12 10:44] VITALS: BP 142/88; PULSE 76; O2SAT 98; BMI 35.7
== END 2023-05-12 12:51 | disposition home or self-care (01) ==
PROVIDERS: PCP Internal Medicine; Visit Provider Internal Medicine
DX: Z87.828 Personal history of other (healed) physical injury and trauma (principal); R91.1 Solitary pulmonary nodule; J98.01 Acute bronchospasm
CPT/HCPCS: 99213

== ENCOUNTER 2023-06-30 08:12 | Outpatient (REF) | payer OTHER, SELFPAY ==
[2023-06-30 12:04] LABS: Appearance Urine Turbid; Color Urine Yellow; Glucose Urine UA Negative (Negative); Leukocyte Esterase Urine Negative (Negative); Nitrite Urine Negative (Negative); PH 5.5 (5.0-9.0); Specific Gravity - Urine 1.025 (1.005-1.025); UMIC TRIGGER UACC YES; Urine Blood Moderate (2+) (Negative); Urine Ketones Negative (Negative); Urine Protein Trace mg/dL (Neg-Trace)
[2023-06-30 12:18] LABS: Bacteria Urine None Seen (None Seen); Calcium Oxalate Crystals Urine Present; Hyaline Casts Urine 0-2 /LPF (0-2); WBC Urine 0-5 /HPF (0-5)
[2023-06-30 12:24] LABS: Alanine Aminotransferase 47 U/L (0-31); Albumin Level 3.9 g/dL (3.5-5.0); Alkaline Phosphatase 152 U/L (39-117); Aspartate Amino Transferase 39 U/L (5-31); Bilirubin Direct 0.2 mg/dL (0.0-0.5); Bilirubin Total 0.4 mg/dL (0.0-1.0); Cholesterol 180 mg/dL (<200); HDL Cholesterol 44 mg/dL (>40); LDL Cholesterol Calculated 119 mg/dL (<100); Total Protein 7.9 g/dL (6.5-8.0); Triglycerides 85 mg/dL (<150)
[2023-06-30 12:25] LABS: TSH reflex Free T4 1.19 uIU/mL (0.32-4.0); Vitamin D 25-OH Total 19.2 ng/mL (>30)
[2023-07-01 07:41] LABS: HBS Num1 0.35 mIU/mL (0-7.99); HBc Num1 0.12 S/CO (0.00-0.79); Hepatitis A Antibody IgM 0.13 Index (0-0.79); Hepatitis B Core Antibody Nonreactive (Nonreactive); Hepatitis B Surface Antigen Negative (Negative); ~HepC Num1 0.11 S/CO (0.00-0.79); ~Hepatitis A Antibody IgM Nonreactive (Nonreactive); ~Hepatitis B Surface Antibody NONREACTIVE (Nonreactive); ~Hepatitis C Antibody Nonreactive (Nonreactive)
== END 2023-06-30 08:13 | disposition home or self-care (01) ==
LOC: HO.HMGCLDS 08:12
PROVIDERS: PCP Internal Medicine; Visit Provider Internal Medicine
DX: R53.83 Other fatigue (principal); E55.9 Vitamin D deficiency, unspecified; E66.9 Obesity, unspecified; R74.01 Elevation of levels of liver transaminase levels; Z13.220 Encounter for screening for lipoid disorders; R35.0 Frequency of micturition
CPT/HCPCS: 36415; 80061; 80076; 81001; 81003; 82306; 84443; 86704; 86706; 86709; 86803; 87340

== ENCOUNTER 2023-07-01 08:52 | Outpatient (AMB) | payer OTHER, SELFPAY ==
--- NOTE | 2023-07-01 08:56 | A.OFFPC_ITS ---
Vital Signs 07/01/23 08:59 Height 5 ft 3 in Weight 195 lb 8 oz BMI 34.6 BP 130/82 Blood Pressure Location Rt brachial Position Sitting Pulse 67 Pulse Source Pulse Oximeter Pulse Oximetry (%) 98 Oxygen Delivery Method Room Air Intake Visit Reasons: Weigh in Intake Note: Pt is here to follow up after starting Wegovy and to go over her lab results Allergies No Known Allergies Allergy (Unknown, Verified 07/01/23 09:34) Medication List - Last Reconciled 07/01/23 by Skye Cameron MD albuterol sulfate 90 mcg/actuation 2 puffs inhalation Q4-6H PRN hydroxyzine HCl 10 mg PO BEDTIME PRN mometasone 0.1% 1 appl topical DAILY PRN omeprazole 20 mg PO DAILY semaglutide (weight loss) (Wegovy) 1 mg (0.5 mL) subcut QWEEK Tobacco use date assessed: 07/01/23 Dental Screening Dental Screen Date: 07/01/23 Did you have a dental visit in the last 12 months?: No Did you have a dental problem in the last 6 months where you did not have access to dental care?: No Was dental information given to patient?: Patient has dentist HPI Weigh in HPI Details 48-year-old lady with history of vitamin -D deficiency and impaired fasting glucose, and obesity , who is currently on Wegovy, , here today for follow-up. She was started on this medicine since November of 2022, and is now on 1 mg dose. Patient has been tolerating medication well, has been trying to follow recommended diet but has not been getting any exercise at all, has lost only about 5 lb since starting the medication. She had recent fasting labs done which showed low vitamin-D level, normal fasting lipid panel and thyroid levels. [facility] Medical History (Updated 07/01/23 @ 09:45 by Skye Cameron MD) Vitamin D deficiency Pulmonary nodule less than 6 mm determined by computed tomography of lung Facial dermatitis Kidney stones Excessive daytime sleepiness Witnessed apneic spells Difficulty sleeping Gallstones without obstruction of gallbladder Obesity (BMI 30-39.9) Ureteral calculus, right Obstruction of right ureteropelvic junction due to stone Impaired fasting glucose Elevated liver transaminase level Surgical History Hx laparoscopic cholecystectomy (10/14/22) Hx of section Gallstones without obstruction of gallbladder Hx of appendectomy Family History Father Diabetes mellitus HTN (hypertension) Hyperlipidemia Acute myocardial infarction Esophageal cancer Mother Depression Mental health disorder Social History Housing: House Alcohol intake: never Patient Tobacco Use Status: Never used Tobacco e-Cigarette/Vaping Use: Never Used Current occupational status: employed Cognitive needs: No Hearing needs: No Vision needs: No Questionnaire Thrive Questionnaire Date Thrive assessed: 08/16/22 FLORENCIO-7 AMB Questionnaire FLORENCIO-7 Date FLORENCIO - 7 assessed: 08/16/22 Source: Developed by Drs. Pj Balderas, Gisel De Jesus, Agustin Roa and colleagues, with an educational richelle from [employer]. Review of Systems Const Denies body aches and Denies headache(s) ENT Denies dizziness, Denies headache(s) and Denies nasal congestion Card Denies chest pain, Denies lightheadedness and Denies dyspnea Resp Denies chest congestion, Denies cough and Denies dyspnea GI Denies abdominal pain, Denies change in bowel habits and Denies heartburn Musc Reports no additional complaints Neuro Denies dizziness and Denies headache(s) Psych Reports no additional complaints Endo Reports no additional complaints Everette/Lymph Reports no additional complaints Physical exam (Primary Care) Vital Signs: Last Vital Signs Pulse 67 07/01/23 08:59 BP 130/82 07/01/23 08:59 Pulse Ox 98 07/01/23 08:59 Oxygen Delivery Method Room Air 07/01/23 08:59 BMI result Body Mass Index 34.6 Tobacco/Smoking Status: Tobacco use Status Tobacco use date assessed 07/01/23 07/01/23 09:04 Patient Tobacco Use Status Never used Tobacco 07/01/23 09:04 e-Cigarette/Vaping Use Never Used 07/01/23 09:04 Thrive Assessment: Date of Thrive Assessment Date Thrive assessed 08/16/22 07/01/23 09:04 Const Other: Obese, alert oriented x3, no acute distress noted ambulatory normal gait Orientation/consciousness: patient oriented x3 HENMT Head: Yes normocephalic and Yes atraumatic Face and sinus: Yes face symmetric Mouth: Normal oral and palatal mucosa present and moist mucous membranes Eyes General: appearance normal, both eyes and all related structures Neck Neck: Yes normal visual inspection, Yes full ROM, Yes no lymphadenopathy and Yes supple Resp Auscultation: clear to auscultation bilaterally Cardio Other: S1-S2 present, regular rate and rhythm GI Inspection: Yes obesity Palpation (GI): Soft to palpation, nontender, no guarding and no masses Neuro General: patient oriented x3, gait normal, tone normal, moves all extremities, Normal light touch and pain sensation, no focal motor deficits and CN's II-XI intact bilaterally Extrem General: Yes full ROM, Yes no joint enlargement, Yes no clubbing, cyanosis or edema, Yes no pedal edema, Yes no calf tenderness and Yes normal gait Results Reviewed Results Reviewed: RUN: 07/04/23 PAGE 1 [facility] [address] [place] [id number] [employer]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 Specimen Inquiry Name: Rahel Mathews Age/Sex: 48/F : 1975 Unit#: [id number] Attend Dr: Skye Cameron MD Re06/30/23 Status: DEP REF Location: HO.[facility]MGCLDS Disch: SPEC : [id number] TERRI: 06/30/23 STATUS: COMP REQ : [id number] RECD: 06/30/[address]: Skye Cameron MD COMP: 06/30/23 ENTERED: 06/30/[address]: ORDERED: Liver Panel, Lipid Panel, Vitamin D 25-OH, TSH Rflx Test Result Flag Reference Site Total Bili 0.4 0.0-1.0 mg/dL Direct Bili 0.2 0.0-0.5 mg/dL AST (GOT) 39 H 5-31 U/L ALT (GPT) 47 H 0-31 U/L Protein, Total 7.9 6.5-8.0 g/dL Alb 3.9 3.5-5.0 g/dL Triglyceride 85 <150 mg/dL Desirable Triglyceride: less than 150 mg/dL Borderline High Triglyceride 150-199 mg/dL High Triglyceride: 200-499 mg/dL Very High Triglyceride: greater than or equal to 5OO mg/dL Cholesterol 180 <200 mg/dL Desirable Cholesterol: less than 200 mg/dL Borderline High Cholesterol: 200-239 mg/dL High Cholesterol: greater than 239 mg/dL LDL Calculated 119 H <100 mg/dL Desirable LDL: less than 100 mg/dL Near Optimal/Above Optimal LDL: 110-129 mg/dL Borderline High LDL: 130-159 mg/dL High LDL: 160-189 mg/dL Very High LDL: greater than or equal to 190 mg/dL HDL 44 >40 mg/dL Desirable HDL: greater than 40 mg/dL Note: This HDL assay may give artificially low results in patients with liver disease. Alk Phos 152 H 39-117 U/L Vit D 25-OH Tot 19.2 L >30 ng/mL Health Based Reference Values* < 20 ng/mL Deficient 20-30 ng/mL Insufficient > 30 ng/mL Sufficient *Danelle DUNCAN. N Engl J Med. 2007;[id number] Care must be taken in interpreting Vitamin D results from different laboratories and methodologies. Published data demonstrated that results from patients undergoing hemodialysis may show a negative bias when tested with various automated 25-OH vitamin D assays when compared to LC-MS/MS. When testing samples from patients whose predominant form of Vitamin D is Vitamin D2, such as patients receiving Vitamin D2 supplementation, results that are subtherapeutic should be confirmed with another method such as LC-MS/MS. TSH 1.19 0.32-4.0 uIU/mL Assessment and Plan Assessment & Plan (1) Obesity (BMI 30-39.9): Code(s): E66.9 - Obesity, unspecified Plan: Has lost minimal amount of Wegovy, will continue on current dose, stressed importance of adhering to a low carb diet and starting a regular cardio exercise. Will follow-up in a 2 month (2) Vitamin D deficiency: Code(s): E55.9 - Vitamin D deficiency, unspecified Plan: Prescription sent for vitamin-D 3 [place] [address] units per capsule to take once a week for the next 3 months. Will check another vitamin-D level in 3 months. Orders: Orders Basic Metabolic Panel Fasting 08/18/23 E55.9 - Vitamin D deficiency, unspecified, E66.9 - Obesity, unspecified, R73.01 - Impaired fasting glucose Hemoglobin A1c 08/18/23 R73.01 - Impaired fasting glucose Liver Panel 08/18/23 E55.9 - Vitamin D deficiency, unspecified, E66.9 - Obesity, unspecified, R73.01 - Impaired fasting glucose Vitamin D 25-OH Total 08/18/23 E55.9 - Vitamin D deficiency, unspecified, E66.9 - Obesity, unspecified, R73.01 - Impaired fasting glucose Medications: New cholecalciferol (vitamin D3) 1,250 mcg PO QWEEK 3 months 13 tabs 0RF E55.9 - Vitamin D deficiency, unspecified Changed From nystatin-triamcinolone 100,000-0.1 unit/g-% 1 appl topical DAILY 10 days 30 grams 0RF To nystatin-triamcinolone 100,000-0.1 unit/g-% Apply to perineal area topically daily; 10 days 30 grams 0RF From semaglutide (weight loss) (Wegovy) administer weeks 9 through 12 of therapy 1 mg (0.5 mL) subcut QWEEK 2 mL 0RF E66.9 - Obesity, unspecified To semaglutide (weight loss) (Wegovy) 1 mg (0.5 mL) subcut QWEEK 2 mL 2RF E66.9 - Obesity, unspecified Coding Level of Care Code Est Pt Level 3 (08637) Diagnoses Obesity (BMI 30-39.9) E66.9 Vitamin D deficiency E55.9
[2023-07-01 08:59] VITALS: BP 130/82; PULSE 67; O2SAT 98; BMI 34.6
== END 2023-07-01 10:00 | disposition home or self-care (01) ==
PROVIDERS: PCP Internal Medicine; Visit Provider Internal Medicine
DX: E55.9 Vitamin D deficiency, unspecified (principal); E66.9 Obesity, unspecified; Z68.34 Body mass index [BMI] 34.0-34.9, adult
CPT/HCPCS: 99213

== ENCOUNTER 2023-09-01 10:17 | Outpatient (AMB) | payer OTHER, SELFPAY ==
[2023-09-01 10:29] VITALS: BP 118/80; PULSE 95; O2SAT 96; BMI 36.1
--- NOTE | 2023-09-01 10:29 | MHC.PC.OV ---
Vital Signs 09/01/23 10:29 Height 5 ft 3 in Weight 204 lb BMI 36.1 BP 118/80 Blood Pressure Location Rt brachial Position Sitting Pulse 95 Pulse Source Pulse Oximeter Pulse Oximetry (%) 96 Intake Visit Reasons: 1 Month follow up Intake Note: Pt is here today for a weight in Allergies No Known Allergies Allergy (Unknown, Verified 09/01/23 10:56) Medication List - Last Reconciled 09/01/23 by Skye Cameron MD albuterol sulfate 90 mcg/actuation 2 puffs inhalation Q4-6H PRN cholecalciferol (vitamin D3) 1,250 mcg PO QWEEK 3 months hydroxyzine HCl 10 mg PO BEDTIME PRN mometasone 0.1% 1 appl topical DAILY PRN nystatin-triamcinolone 100,000-0.1 unit/g-% Apply to perineal area topically daily; 10 days omeprazole 20 mg PO DAILY Wegovy (semaglutide (weight loss)) 1.7 mg (0.75 mL) subcut QWEEK NS Tobacco use date assessed: 09/01/23 Dental Screening Dental Screen Date: 09/01/23 Did you have a dental visit in the last 12 months?: Yes Did you have a dental problem in the last 6 months where you did not have access to dental care?: No Was dental information given to patient?: Patient has dentist HPI 1 Month follow up HPI Details 48-year-old lady here today for follow-up. She has been prescribed Wegovy in the past, but has not been able to fill her subsequent prescriptions due to insurance issues. Admits to not being compliant with diet, has been under lot of stress lately due to recent passing of her father, has been eating late at night and was eating a lot of junk food and fast food. She has prediabetes, with strong family history for diabetes mellitus. Would like to try another weight loss medication. [facility] Medical History Family history of diabetes mellitus in father Pre-diabetes Vitamin D deficiency Pulmonary nodule less than 6 mm determined by computed tomography of lung Facial dermatitis Kidney stones Excessive daytime sleepiness Witnessed apneic spells Difficulty sleeping Gallstones without obstruction of gallbladder Obesity (BMI 30-39.9) Ureteral calculus, right Obstruction of right ureteropelvic junction due to stone Impaired fasting glucose Elevated liver transaminase level Surgical History Hx laparoscopic cholecystectomy (10/14/22) Hx of section Gallstones without obstruction of gallbladder Hx of appendectomy Family History Father Diabetes mellitus HTN (hypertension) Hyperlipidemia Acute myocardial infarction Esophageal cancer Mother Depression Mental health disorder Social History Housing: House Alcohol intake: never Patient Tobacco Use Status: Never used Tobacco e-Cigarette/Vaping Use: Never Used Current occupational status: employed Cognitive needs: No Hearing needs: No Vision needs: No Questionnaire Thrive Questionnaire Date Thrive assessed: 08/16/22 AUDIT C Alcohol Use Questionnaire (AUDIT-C) 1. How often do you have a drink containing alcohol?: Never Total Score: 0 FLORENCIO-7 AMB Questionnaire FLORENCIO-7 Date FLORENCIO - 7 assessed: 08/16/22 Source: Developed by Drs. Pj Balderas, Gisel De Jesus, Agustin Roa and colleagues, with an educational richelle from [employer]. Review of Systems Const Denies body aches and Denies headache(s) ENT Denies dizziness and Denies headache(s) Card Denies chest pain, Denies lightheadedness and Denies dyspnea Resp Denies cough and Denies dyspnea GI Denies abdominal pain, Denies change in bowel habits and Denies heartburn Musc Reports arthralgias and Reports stiffness Neuro Denies dizziness and Denies headache(s) Psych Reports no additional complaints Endo Reports no additional complaints Physical exam (Primary Care) Vital Signs: Last Vital Signs Pulse 95 09/01/23 10:29 BP 118/80 09/01/23 10:29 Pulse Ox 96 09/01/23 10:29 BMI result Body Mass Index 36.1 Tobacco/Smoking Status: Tobacco use Status Tobacco use date assessed 09/01/23 09/01/23 10:36 Patient Tobacco Use Status Never used Tobacco 09/01/23 10:36 e-Cigarette/Vaping Use Never Used 09/01/23 10:36 Thrive Assessment: Date of Thrive Assessment Date Thrive assessed 08/16/22 09/01/23 10:36 Const Other: Obese, alert oriented x3, no acute distress noted ambulatory normal gait Orientation/consciousness: patient oriented x3 HENTX Head: Yes normocephalic and Yes atraumatic Face and sinus: Yes face symmetric Mouth: Normal oral and palatal mucosa present and moist mucous membranes Eyes General: appearance normal, both eyes and all related structures Neck Neck: Yes normal visual inspection, Yes full ROM, Yes no lymphadenopathy and Yes supple Resp Auscultation: clear to auscultation bilaterally Cardio Other: S1-S2 present, regular rate and rhythm GI Inspection: Yes obesity Palpation (GI): Soft to palpation, nontender, no guarding and no masses Neuro General: patient oriented x3, gait normal, tone normal, moves all extremities, Normal light touch and pain sensation, no focal motor deficits and CN's II-XI intact bilaterally Extrem General: Yes full ROM, Yes no joint enlargement, Yes no clubbing, cyanosis or edema, Yes no pedal edema, Yes no calf tenderness and Yes normal gait Assessment and Plan Assessment & Plan (1) Impaired fasting glucose: Code(s): R73.01 - Impaired fasting glucose Plan: Your fasting blood sugars elevated above 100 mg/dL. Impaired glucose metabolism O2 at risk for developing diabetes mellitus type 2, as well as heart attack and stroke later on. Lifestyle changes at just weight loss, healthy eating habits, and regular exercise are important, and can prevent the progression to diabetes (2) Obesity (BMI 30-39.9): Code(s): E66.9 - Obesity, unspecified Plan: Reinforced importance of following a healthy diet, getting regular cardio exercise at least 3 to 4 times a week, will prescribe 1 general 2.5 mg per injection to inject subcutaneously once a week, instructed on proper administration of medication and possible side effects of medication which may include abdominal pain, cramping, alteration in bowel habits, increased risk for pancreatitis advised to return to clinic for follow-up in 4 weeks (3) Family history of diabetes mellitus in father: Code(s): Z83.3 - Family history of diabetes mellitus (4) Pre-diabetes: Code(s): R73.03 - Prediabetes Medications: New Mounjaro (tirzepatide) 2.5 mg (0.5 mL) subcut QWEEK 2 mL 0RF 4 weeks NS E66.9 - Obesity, unspecified, R73.01 - Impaired fasting glucose, R73.03 - Prediabetes, Z83.3 - Family history of diabetes mellitus Discontinued Wegovy (semaglutide (weight loss)) administer weeks 13 through 16 of therapy Discontinued Reason: Insurance Denied 1.7 mg (0.75 mL) subcut QWEEK 3 mL 1RF NS Coding Level of Care Code Est Pt Level 3 (75159) Diagnoses Impaired fasting glucose R73.01 Obesity (BMI 30-39.9) E66.9 Family history of diabetes mellitus in father Z83.3 Pre-diabetes R73.03
== END 2023-09-01 12:01 | disposition home or self-care (01) ==
PROVIDERS: PCP Internal Medicine; Visit Provider Internal Medicine
DX: R73.01 Impaired fasting glucose (principal); E66.9 Obesity, unspecified; Z83.3 Family history of diabetes mellitus; Z68.36 Body mass index [BMI] 36.0-36.9, adult; R73.03 Prediabetes
CPT/HCPCS: 99213

== ENCOUNTER 2023-09-07 10:36 | Outpatient (REF) | payer OTHER, SELFPAY ==
--- NOTE | ~2023-09-07 | MM_ITS ---
EXAMINATION: MM SCREENING DIGITAL BREAST TOMOSYNTHESIS, BILATERAL CLINICAL INFORMATION: Screening. Asymptomatic. COMPARISON: Mammography: This study is compared with prior exams dating back to 2021. TECHNIQUE: Digital breast tomosynthesis is performed in both the craniocaudal and mediolateral oblique views along with computer-aided detection (CAD). Synthesized 2D images are generated from the tomosynthesis. FINDINGS: The breasts are heterogeneously dense, which may obscure small masses (ACR BI-RADS breast composition Category c). There are no significant masses, abnormal calcifications, or other abnormalities. MM/MM tomosynthesis screening BI IMPRESSION: No mammographic evidence of malignancy. ASSESSMENT: BI-RADS BI-RADS 1 - Negative RECOMMENDATION: Routine annual mammography screening. 1 year F/U This examination should not preclude the clinical evaluation of a suspicious palpable abnormality. This patient's information was entered into a reminder system with a target due date for their next mammogram.
== END 2023-09-07 10:37 | disposition home or self-care (01) ==
LOC: HO.MAMMO 10:36
PROVIDERS: PCP Internal Medicine; Visit Provider Internal Medicine
DX: Z12.31 Encounter for screening mammogram for malignant neoplasm of breast (principal)
CPT/HCPCS: 77063; 77067

== ENCOUNTER → 2023-09-07 10:45 | Outpatient (BNV) | payer OTHER, SELFPAY | PROVIDERS: PCP Internal Medicine; Visit Provider Radiology Diagnostic Radiology | DX: Z12.31 Encounter for screening mammogram for malignant neoplasm of breast (principal) | CPT/HCPCS: 77063; 77067 ==

== ENCOUNTER 2024-03-15 09:53 | Outpatient (REF) | payer OTHER, SELFPAY ==
[2024-03-15 14:01] LABS: Alanine Aminotransferase 61 U/L (0-31); Alkaline Phosphatase 153 U/L (39-117); Anion Gap 13 (12-20); Aspartate Amino Transferase 47 U/L (5-31); Bilirubin Direct 0.2 mg/dL (0.0-0.5); Bilirubin Total 0.7 mg/dL (0.0-1.0); Blood Urea Nitrogen 10 mg/dL (9-16); Calcium 9.6 mg/dL (8.4-10.2); Carbon Dioxide 26 mmol/L (22-29); Chloride 104 mmol/L (96-108); Estimated Average Glucose 126 mg/dL; Estimated Glomerular Filt Rate > 60; Glucose Fasting 104 mg/dL (60-99); Potassium 3.8 mmol/L (3.3-5.1); Sodium 139 mmol/L (135-145); Total Protein 8.3 g/dL (6.5-8.0); Vitamin D 25-OH Total 30.9 ng/mL (>30)
== END 2024-03-15 09:54 | disposition home or self-care (01) ==
LOC: HO.HMGCLDS 09:53
PROVIDERS: PCP Internal Medicine; Visit Provider Internal Medicine
DX: R73.01 Impaired fasting glucose (principal); E55.9 Vitamin D deficiency, unspecified; E66.9 Obesity, unspecified
CPT/HCPCS: 36415; 80048; 80076; 82306; 83036

== ENCOUNTER 2024-03-20 08:36 | Outpatient (AMB) | payer OTHER, SELFPAY ==
[2024-03-20 08:40] VITALS: BP 120/80; PULSE 76; O2SAT 96; BMI 37.6
--- NOTE | 2024-03-20 08:40 | MHC.PC.OV ---
Vital Signs 03/20/24 08:40 Height 5 ft 3 in Weight 212 lb BMI 37.6 BP 120/80 Blood Pressure Location Lt brachial Position Sitting Pulse 76 Pulse Source Pulse Oximeter Pulse Oximetry (%) 96 Oxygen Delivery Method Room Air Intake Visit Reasons: PE Intake Note: Pt is here today for her PE: Last mammogram 09/07/23, papsmear 06/01/22 Allergies No Known Allergies Allergy (Unknown, Verified 03/20/24 08:57) Medication List - Last Reconciled 03/20/24 by Skye Cameron MD albuterol sulfate 90 mcg/actuation 2 puffs inhalation Q4-6H PRN cholecalciferol (vitamin D3) 1,250 mcg PO QWEEK 3 months omeprazole 20 mg PO DAILY Tobacco use date assessed: 03/20/24 Dental Screening Dental Screen Date: 03/20/24 Did you have a dental visit in the last 12 months?: No Did you have a dental problem in the last 6 months where you did not have access to dental care?: No Was dental information given to patient?: Patient has dentist HPI PE HPI Details 49-year-old lady with past medical history significant for obesity, impaired fasting glucose, and varicose veins in both lower extremities, here today for physical exam. She up-to-date with her screening mammogram, last done 09/07/2023 with benign findings. Last cervical cancer screening and pelvic exam was done in 2021 with benign findings. She is overdue to get her screening for colon cancer. She has obesity, tried taking phentermine but stopped taking it as it was making her have frequent palpitations and racing her blood pressure. Admits to not really being compliant with recommended diet and has not been exercising regularly. Would like to try taking Wegovy for help with weight loss.. Requesting referral also to vascular surgeon for treatment of painful varicose veins in both lower extremities, patient states that her legs would start to hurt and swelling up towards end of the day [facility] Medical History (Updated 03/23/24 @ 18:03 by Skye Cameron MD) Varicose veins of bilateral lower extremities with pain Family history of diabetes mellitus in father Vitamin D deficiency Pulmonary nodule less than 6 mm determined by computed tomography of lung Facial dermatitis Kidney stones Gallstones without obstruction of gallbladder Obesity (BMI 30-39.9) Ureteral calculus, right Obstruction of right ureteropelvic junction due to stone Impaired fasting glucose Surgical History Hx laparoscopic cholecystectomy (10/14/22) Hx of section Gallstones without obstruction of gallbladder Hx of appendectomy Family History Father Diabetes mellitus HTN (hypertension) Hyperlipidemia Acute myocardial infarction Esophageal cancer Mother Depression Mental health disorder Social History Housing: House Alcohol intake: never Patient Tobacco Use Status: Never used Tobacco e-Cigarette/Vaping Use: Never Used Current occupational status: employed Cognitive needs: No Hearing needs: No Vision needs: No Female Reproductive History Menstrual Menopause type: natural Age of menopause: 48 Questionnaire PHQ-9 Over the last 2 weeks, how often have you been bothered by any of the following problems? 1. Little interest or pleasure in doing things: not at all 2. Feeling down, depressed, or hopeless: not at all 3. Trouble falling or staying asleep, or sleeping too much: several days 4. Feeling tired or having little energy: nearly every day 5. Poor appetite or overeating: more than half the days 6. Feeling bad about yourself - or that you are a failure or have let yourself or your family down: not at all 7. Trouble concentrating on things, such as reading the newspaper or watching television: not at all 8. Moving or speaking so slowly that other people could have noticed. Or the opposite - being so fidgety or restless that you have been moving around a lot more than usual: not at all 9. Thoughts that you would be better off or of hurting yourself in some way: not at all Total score: 6 Depression Screening Interpretation: Negative Depression Screening Done: Yes 30252 - PHQ-9 Billing: Yes Source: Developed by Drs. Pj Balderas, Gisel De Jesus, Agustin Roa and colleagues, with an educational richelle from [employer]. Thrive Questionnaire Date Thrive assessed: 03/20/24 I am a: Patient What is your living situation today?: I have a steady place to live Within the past 12 months, did the food you bought not last and you didn't have the money to get more?: Never true Within the past 12 months, did you worry whether your food would run out before you got money to buy more?: Never true Do you have trouble paying for medicines?: No Do you have trouble getting transportation to medical appointments?: No Do you have trouble paying your heating and electricity bill?: No Do you have trouble taking care of your child, family member or friend?: No Do you have trouble with day-to-day activities such as bathing, preparing meals, shopping, managing finances, etc.?: No Are you currently unemployed and looking for a job?: No Are you interested in more education?: Yes Please select the resources that you would like help with: Education and None Currently or been in a relationship where the following occur: No concerns reported THRIVE Score: 0 AUDIT C Alcohol Use Questionnaire (AUDIT-C) 1. How often do you have a drink containing alcohol?: Monthly or less 2. How many drinks containing alcohol do you have on a typical day when you are drinking?: 1 or 2 3. How often do you have six or more drinks on one occasion?: Never Total Score: 1 FLORENCIO-7 AMB Questionnaire FLORENCIO-7 Date FLORENCIO - 7 assessed: 03/20/24 Feeling nervous, anxious, or on edge: 1 = Several days Not being able to stop or control worryin = Not at all Worrying too much about different things: 1 = Several days Trouble relaxin = Not at all Being so restless that it is hard to sit still: 0 = Not at all Becoming easily annoyed or irritable: 0 = Not at all Feeling afraid as if something awful might happen: 1 = Several days Total FLORENCIO-7 score (0-4 normal; 5-9 mild; 10-14 moderate; 15-21 severe): 3 Source: Developed by Drs. Pj Balderas, Gisel De Jesus, Agustin Roa and colleagues, with an educational richelle from [employer]. FLORENCIO-7 Assessment Billing FLORENCIO-7 Assessment Tool: FLORENCIO-7 Assessment 43305 Review of Systems Const Denies body aches, Denies daytime sleepiness, Denies fatigue, Denies headache(s), Reports increased appetite, Denies malaise and Reports weight gain Eyes Denies change in vision ENT Denies dizziness and Denies headache(s) Card Denies chest pain, Denies lightheadedness and Denies dyspnea Resp Denies cough and Denies dyspnea GI Denies abdominal pain, Denies change in bowel habits and Denies heartburn Reports no additional complaints Musc Reports as per HPI, Reports arthralgias and Reports stiffness Skin/Breast Reports as per HPI, Denies breast pain, Denies breast mass, Denies change in breast shape, Denies dry skin, Denies lesions and Denies rash Neuro Denies dizziness and Denies headache(s) Psych Reports no additional complaints Endo Reports no additional complaints and Denies fatigue Everette/Lymph Reports no additional complaints Aller/Immun Reports no additional complaints Physical exam (Primary Care) Vital Signs: Last Vital Signs Pulse 76 03/20/24 08:40 BP 120/80 03/20/24 08:40 Pulse Ox 96 03/20/24 08:40 Oxygen Delivery Method Room Air 03/20/24 08:40 BMI result Body Mass Index 37.6 BMI Assessment/Plan discussion: High BMI High, discussed plan: lifestyle, weight reduction, dietary, physical activity and other (started on Wegovy) Tobacco/Smoking Status: Tobacco use Status Tobacco use date assessed 03/20/24 03/20/24 08:48 Patient Tobacco Use Status Never used Tobacco 03/20/24 08:40 e-Cigarette/Vaping Use Never Used 03/20/24 08:40 PHQ-9: PHQ-9 Score PHQ-9: Total score 8 03/20/24 08:57 Depression Screening Interpretation: Negative Thrive Assessment: Date of Thrive Assessment Date Thrive assessed 03/20/24 03/20/24 08:48 Currently or been in a relationship where the following occur: No concerns reported Advance Care Planning discussion: Completed/Scanned Date of discussion: 03/20/24 Who was present: Patient Forms completed: Health Care Proxy Time spent: 16-45 minutes Actual minutes spent: 16 Const Other: Obese, alert oriented x3, no acute distress noted ambulatory normal gait Orientation/consciousness: patient oriented x3 HENCA Head: Yes normocephalic Face and sinus: Yes face symmetric Mouth: Normal oral and palatal mucosa present and moist mucous membranes Eyes General: appearance normal, both eyes and all related structures Neck Neck: Yes normal visual inspection, Yes full ROM, Yes no lymphadenopathy and Yes supple Chest Chest palpation & inspection: normal inspection of the chest Breast/axilla inspection: normal inspection of the breasts Breast/axilla palpation: normal palpation of the breasts Resp Auscultation: clear to auscultation bilaterally Cardio Other: S1-S2 present, regular rate and rhythm Peripheral pulses: Peripheral pulses 2+ throughout GI Inspection: Yes obesity Palpation (GI): Soft to palpation, nontender, no guarding and no masses General: Yes no CVA tenderness Back/Spine/Pelvis Back: no CVA tenderness Skin Other: Varicosities noted in both lower extremities Neuro General: patient oriented x3, gait normal, tone normal, moves all extremities, Normal light touch and pain sensation, no focal motor deficits and CN's II-XI intact bilaterally Extrem General: Yes full ROM, Yes no joint enlargement, Yes no clubbing, cyanosis or edema, Yes no pedal edema, Yes no calf tenderness and Yes normal gait Psych Appearance: grossly normal and well kempt Mental Status: mental status grossly normal Speech and movement: Normal speech and movement present Affect: normal affect Attitude: cooperative Thought process: Normal thought process present Thought content: Normal thought content present Results Reviewed Results Reviewed: Name: Rahel Mathews Age/Sex: 49/F : 1975 Unit#: [id number] Attend Dr: Skye Cameron MD Re03/15/24 Status: DEP REF Location: [facility] Disch: SPEC : [id number] TERRI: 03/15/24 STATUS: COMP REQ : [id number] RECD: 03/15/24-[address]: Skye Cameron MD COMP: 03/15/24-1401 ENTERED: 03/15/24-[address]: ORDERED: Liver Panel, Met Prof Fast, Vitamin D 25-OH Test Result Flag Reference Sodium 139 135-145 mmol/L Potassium 3.8 3.3-5.1 mmol/L CL 104 96-108 mmol/L CO2 26 22-29 mmol/L Gap 13 12-20 BUN 10 9-16 mg/dL Creat 0.65 0.5-1.4 mg/dL EGFR > 60 NOTE: For -Swedish individuals, multiply the result by 1.210. Chronic Kidney Disease: Estimated GFR < 60 mL/min/1.73m2 Severe Kidney Disease: Estimated GFR < 15 mL/min/1.73m2 FBS 104 H 60-99 mg/dL A fasting glucose from 100-125 mg/dl is considered impaired (pre-diabetes). CA 9.6 8.4-10.2 mg/dL Total Bili 0.7 0.0-1.0 mg/dL Direct Bili 0.2 0.0-0.5 mg/dL AST (GOT) 47 H 5-31 U/L ALT (GPT) 61 H 0-31 U/L Protein, Total 8.3 H 6.5-8.0 g/dL Alb 4.0 3.5-5.0 g/dL Alk Phos 153 H 39-117 U/L Vit D 25-OH Tot 30.9 L >30 ng/mL Health Based Reference Values* < 20 ng/mL Deficient 20-30 ng/mL Insufficient > 30 ng/mL Sufficient Assessment and Plan Assessment & Plan (1) Annual visit for general adult medical examination with abnormal findings: Code(s): Z00.01 - Encounter for general adult medical examination with abnormal findings Plan: Latest fasting lab review results reviewed with patient. Recommended dental visit every 6 months and regular eye exams, at least every 2 years. Take adequate calcium in diet and vitamin-D 3 at 2000 IU per cap once a day, in addition to weight-bearing exercises to help maintain good muscle tone and weight control. Instructed to do self-breast exam, and continue with yearly mammogram, up-to-date with her cervical cancer screening.. Reminded to get her yearly flu shot and get the latest COVID booster. Up-to-date with her Tdap. Recommended to get vaccinated again shingles (2) Encounter for screening for malignant neoplasm of colon: Code(s): Z12.11 - Encounter for screening for malignant neoplasm of colon Plan: Referred to GI Clinic for initial colonoscopy for colon cancer screening (3) Obesity (BMI 30-39.9): Code(s): E66.9 - Obesity, unspecified Plan: , has tried phentermine, but unable to tolerate medication, has been following a low carb and low-cholesterol diet and has started exercising., without any weight loss noted will try on Wegovy, started on 0.25 mg injection to be administered once a week as directed. Discussed possible side effects of medication which may include increased risk for pancreatitis, abdominal cramping, nausea, either diarrhea or constipation,. Reinforced importance combining this with diet and exercise. Will see her back for follow-up 4 weeks after starting medication. (4) Varicose veins of bilateral lower extremities with pain: Code(s): I83.813 - Varicose veins of bilateral lower extremities with pain Plan: Vascular surgery consult ordered (5) Impaired fasting glucose: Code(s): R73.01 - Impaired fasting glucose Plan: Your previous fasting blood sugars were elevated above 100 mg/dL. Impaired glucose metabolism increases the risk for developing diabetes mellitus type 2, as well as heart attack and stroke later on. Lifestyle changes that promotes weight loss, healthy eating habits, and regular exercise are important, and can prevent the progression to diabetes (6) Advanced directives, counseling/discussion: Code(s): Z71.89 - Other specified counseling Plan: Initiated the conversation about Advanced Directives. Advanced Directives help patients prepare for current and future decisions about their medical treatment and place of care. Discussed with patient that it is a process where a patients current condition and prognosis are reviewed, their wishes for information regarding their illness are elicited, and likely medical dilemmas are presented and options discussed. Healthcare proxy form completed today. The form can be amended as needed, reviewed yearly and make changes as needed Orders: Orders UA CC w/rflx Micro + Cult 06/30/23 R35.0 - Frequency of micturition Referrals Vascular Surgery Referral I83.813 - Varicose veins of bilateral lower extremities with pain Gastroenterology Referral Z12.11 - Encounter for screening for malignant neoplasm of colon Medications: New Wegovy (semaglutide (weight loss)) administer weeks 1 through 4 of therapy 0.25 mg (0.5 mL) subcut QWEEK 30 days 2.5 mL 0RF NS E66.9 - Obesity, unspecified Refilled albuterol sulfate 90 mcg/actuation substitution allowed 2 puffs inhalation Q4-6H PRN 6.7 grams 3RF shortness of breath or wheezing R05 - Cough Coding Level of Care Code Est Pt Prev Care 40-64y(83363) Diagnoses Annual visit for general adult medical examination with abnormal findings Z00.01 Encounter for screening for malignant neoplasm of colon Z12.11 Obesity (BMI 30-39.9) E66.9 Varicose veins of bilateral lower extremities with pain I83.813 Impaired fasting glucose R73.01 Advanced directives, counseling/discussion Z71.89 Additional Codes Vital Signs *Quality* - Advance Care Planning discussion: Completed/Scanned ([id number]) Vital Signs *Quality* - Time spent: 16-45 minutes ([id number]) FLORENCIO-7 Assessment Billing - FLORENCIO-7 Assessment Tool: FLORENCIO-7 Assessment [id number] ([id number])
== END 2024-03-20 10:37 | disposition home or self-care (01) ==
PROVIDERS: Visit Provider Internal Medicine
DX: Z00.00 Encounter for general adult medical examination without abnormal findings (principal); Z12.11 Encounter for screening for malignant neoplasm of colon; E66.9 Obesity, unspecified; Z68.37 Body mass index [BMI] 37.0-37.9, adult; I83.813 Varicose veins of bilateral lower extremities with pain; R73.01 Impaired fasting glucose
CPT/HCPCS: 1123F; 99396; 99497

== ENCOUNTER → 2024-04-10 08:03 | Outpatient (BNVA) | payer OTHER, SELFPAY | PROVIDERS: PCP Internal Medicine; Visit Provider Surgery ==

== ENCOUNTER 2024-05-14 09:44 | Outpatient (AMB) | payer OTHER, SELFPAY ==
[2024-05-14 10:33] VITALS: BP 122/86; PULSE 92; O2SAT 98; BMI 36.3
--- NOTE | 2024-05-14 10:33 | MHC.PC.OV ---
Vital Signs 05/14/24 10:33 Height 5 ft 3 in Weight 205 lb BMI 36.3 BP 122/86 Blood Pressure Location Lt brachial Position Sitting Pulse 92 Pulse Source Pulse Oximeter Pulse Oximetry (%) 98 Oxygen Delivery Method Room Air Intake Visit Reasons: weigh in Intake Note: Pt is here today for her weigh in and a rash on her lower back rash Allergies No Known Allergies Allergy (Unknown, Verified 05/14/24 10:50) Medication List - Last Reconciled 05/14/24 by Skye Cameron MD albuterol sulfate 90 mcg/actuation 2 puffs inhalation Q4-6H PRN cholecalciferol (vitamin D3) 1,250 mcg PO QWEEK 3 months omeprazole 20 mg PO DAILY Wegovy (semaglutide (weight loss)) 0.25 mg (0.5 mL) subcut QWEEK 30 days NS Tobacco use date assessed: 05/14/24 Dental Screening Dental Screen Date: 05/14/24 Did you have a dental visit in the last 12 months?: No Did you have a dental problem in the last 6 months where you did not have access to dental care?: No Was dental information given to patient?: Patient has dentist HPI weigh in HPI Details It is here today for follow-up on her weight. She was started on Wegovy, 0.25 mg injected subcutaneously once a week, tolerating medication well, has been trying to combine it with exercise but not doing it regularly, has noticed some reduction in her appetite 1-2 days after giving herself to injection. Minimal weight loss achieved after starting initial prescription She is also complaining pruritic rash which comes and goes in her lower back and lower abdomen area [facility] Medical History (Updated 05/14/24 @ 11:01 by Skye Cameron MD) Rash Obesity (BMI 30.0-34.9) Varicose veins of bilateral lower extremities with pain Family history of diabetes mellitus in father Vitamin D deficiency Pulmonary nodule less than 6 mm determined by computed tomography of lung Facial dermatitis Kidney stones Gallstones without obstruction of gallbladder Obesity (BMI 30-39.9) Ureteral calculus, right Obstruction of right ureteropelvic junction due to stone Impaired fasting glucose Surgical History Hx laparoscopic cholecystectomy (10/14/22) Hx of section Gallstones without obstruction of gallbladder Hx of appendectomy Family History Father Diabetes mellitus HTN (hypertension) Hyperlipidemia Acute myocardial infarction Esophageal cancer Mother Depression Mental health disorder Social History Housing: House Alcohol intake: never Patient Tobacco Use Status: Never used Tobacco e-Cigarette/Vaping Use: Never Used Current occupational status: employed Cognitive needs: No Hearing needs: No Vision needs: No Questionnaire Thrive Questionnaire Date Thrive assessed: 03/20/24 I am a: Patient What is your living situation today?: I have a steady place to live Within the past 12 months, did the food you bought not last and you didn't have the money to get more?: Never true Within the past 12 months, did you worry whether your food would run out before you got money to buy more?: Never true Do you have trouble paying for medicines?: No Do you have trouble getting transportation to medical appointments?: No Do you have trouble paying your heating and electricity bill?: No Do you have trouble taking care of your child, family member or friend?: No Do you have trouble with day-to-day activities such as bathing, preparing meals, shopping, managing finances, etc.?: No Are you currently unemployed and looking for a job?: No Are you interested in more education?: Yes Currently or been in a relationship where the following occur: No concerns reported THRIVE Score: 0 FLORENCIO-7 AMB Questionnaire FLORENCIO-7 Date FLORENCIO - 7 assessed: 03/20/24 Source: Developed by Drs. Pj Balderas, Gisel De Jesus, Agustin Roa and colleagues, with an educational richelle from [employer] Review of Systems Const Denies body aches, Denies daytime sleepiness, Denies fatigue, Denies headache(s), Reports increased appetite and Denies malaise Eyes Denies change in vision ENT Denies dizziness and Denies headache(s) Card Denies chest pain, Denies lightheadedness and Denies dyspnea Resp Denies cough and Denies dyspnea GI Denies abdominal pain, Denies change in bowel habits and Denies heartburn Reports no additional complaints Musc Reports as per HPI, Reports arthralgias and Reports stiffness Skin/Breast Reports as per HPI, Denies breast pain, Denies breast mass, Denies change in breast shape, Denies dry skin and Denies lesions Neuro Denies dizziness and Denies headache(s) Endo Reports no additional complaints and Denies fatigue Everette/Lymph Reports no additional complaints Aller/Immun Reports no additional complaints Physical exam (Primary Care) Vital Signs: Last Vital Signs Pulse 92 05/14/24 10:33 BP 122/86 05/14/24 10:33 Pulse Ox 98 05/14/24 10:33 Oxygen Delivery Method Room Air 05/14/24 10:33 BMI result Body Mass Index 36.3 Tobacco/Smoking Status: Tobacco use Status Tobacco use date assessed 05/14/24 05/14/24 10:38 Patient Tobacco Use Status Never used Tobacco 05/14/24 10:38 e-Cigarette/Vaping Use Never Used 05/14/24 10:38 Thrive Assessment: Date of Thrive Assessment Date Thrive assessed 03/20/24 05/14/24 10:38 Currently or been in a relationship where the following occur: No concerns reported Const Other: Obese, alert oriented x3, no acute distress noted ambulatory normal gait Orientation/consciousness: patient oriented x3 HENMT Face and sinus: Yes face symmetric Mouth: Normal oral and palatal mucosa present and moist mucous membranes Neck Neck: Yes normal visual inspection, Yes full ROM, Yes no lymphadenopathy and Yes supple Chest Chest palpation & inspection: normal inspection of the chest Breast/axilla inspection: normal inspection of the breasts Breast/axilla palpation: normal palpation of the breasts Resp Auscultation: clear to auscultation bilaterally Cardio Other: S1-S2 present, regular rate and rhythm Peripheral pulses: Peripheral pulses 2+ throughout GI Inspection: Yes obesity Palpation (GI): Soft to palpation, nontender, no guarding and no masses General: Yes no CVA tenderness Back/Spine/Pelvis Back: no CVA tenderness Skin Other: Varicosities noted in both lower extremities , erythematous patch noted on lower back Neuro General: patient oriented x3, gait normal, tone normal, moves all extremities, Normal light touch and pain sensation, no focal motor deficits and CN's II-XI intact bilaterally Extrem General: Yes full ROM, Yes no joint enlargement, Yes no clubbing, cyanosis or edema, Yes no pedal edema, Yes no calf tenderness and Yes normal gait Psych Appearance: grossly normal and well kempt Mental Status: mental status grossly normal Speech and movement: Normal speech and movement present Affect: normal affect Attitude: cooperative Thought process: Normal thought process present Thought content: Normal thought content present Coding Level of Care Code Est Pt Level 4 (62745) Diagnoses Impaired fasting glucose R73.01 Obesity (BMI 30.0-34.9) E66.811 Rash R21 History of vitamin D deficiency Z86.39 Assessment & Plan Assessment & Plan (1) Impaired fasting glucose: Code(s): R73.01 - Impaired fasting glucose Category: Medical Plan: Your previous fasting blood sugars were elevated above 100 mg/dL. Impaired glucose metabolism increases the risk for developing diabetes mellitus type 2, as well as heart attack and stroke later on. Lifestyle changes that promotes weight loss, healthy eating habits, and regular exercise are important, and can prevent the progression to diabetes (2) Obesity (BMI 30.0-34.9): Code(s): E66.811 - Obesity, class 1 Category: Medical Plan: Will increase dose of Wegovy 2.5 mg injected subcutaneously once a week. Combined this with adherence to healthy eating habits and getting regular exercise. (3) Rash: Code(s): R21 - Rash and other nonspecific skin eruption Category: Medical Plan: Prescription sent for nystatin-triamcinolone cream, to be applied to affected areas sparingly once or twice a day for no more than 10 days at a time. (4) History of vitamin D deficiency: Code(s): Z86.39 - Personal history of other endocrine, nutritional and metabolic disease Plan: Ordered repeat vitamin-D level checked Orders: Orders Alanine Aminotransferase 07/30/24 E66.811 - Obesity, class 1, R73.01 - Impaired fasting glucose, Z86.39 - Personal history of other endocrine, nutritional and metabolic disease Aspartate Amino Transferase 07/30/24 E66.811 - Obesity, class 1, R73.01 - Impaired fasting glucose, Z86.39 - Personal history of other endocrine, nutritional and metabolic disease Hemoglobin A1c 07/30/24 E66.811 - Obesity, class 1, R73.01 - Impaired fasting glucose, Z86.39 - Personal history of other endocrine, nutritional and metabolic disease Basic Metabolic Panel Fasting 01/13/25 E66.811 - Obesity, class 1, R73.01 - Impaired fasting glucose, Z86.39 - Personal history of other endocrine, nutritional and metabolic disease Vitamin D 25-OH Total 07/30/24 E66.811 - Obesity, class 1, R73.01 - Impaired fasting glucose, Z86.39 - Personal history of other endocrine, nutritional and metabolic disease Medications: Changed From Wegovy administer weeks 1 through 4 of therapy 0.25 mg (0.5 mL) subcut QWEEK 30 days 2.5 mL 0RF NS E66.9 - Obesity, unspecified To semaglutide (weight loss) administer weeks 1 through 4 of therapy 0.5 mg (0.5 mL) subcut QWEEK 2 mL 2RF 30 days E66.9 - Obesity, unspecified Refilled nystatin-triamcinolone 100,000-0.1 unit/g-% 1 appl topical DAILY 60 grams 0RF 10 days L30.9 - Dermatitis, unspecified
== END 2024-05-14 11:21 | disposition home or self-care (01) ==
PROVIDERS: PCP Internal Medicine; Visit Provider Internal Medicine
DX: R73.01 Impaired fasting glucose (principal); E66.811 Obesity, class 1; R21 Rash and other nonspecific skin eruption; Z68.36 Body mass index [BMI] 36.0-36.9, adult; Z86.39 Personal history of other endocrine, nutritional and metabolic disease

== ENCOUNTER → 2024-05-14 09:44 | Outpatient (BNVA) | payer OTHER, SELFPAY | PROVIDERS: PCP Internal Medicine; Visit Provider Internal Medicine ==

== ENCOUNTER 2024-08-09 09:00 | Outpatient (AMB) | payer OTHER, SELFPAY ==
--- NOTE | 2024-08-09 09:16 | MHC.OFFVIS ---
Vital Signs 08/09/24 09:18 Height 5 ft 3 in Weight 207 lb BMI 36.7 BP 130/82 Blood Pressure Location Lt brachial Position Sitting Pulse 76 Pulse Source Pulse Oximeter Pulse Oximetry (%) 96 Oxygen Delivery Method Room Air Intake Visit Reasons: INP-Apnea Intake Note: Patient presents for a new patient evaluation for sleep apnea. Pt has no concerns. 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: No Accompanied by: Self / Same As Patient Allergies No Known Allergies Allergy (Unknown, Verified 08/09/24 09:18) Medication List - Last Reconciled 08/09/24 by Rodrigo Yan PA-C albuterol sulfate 90 mcg/actuation 2 puffs inhalation Q4-6H PRN cholecalciferol (vitamin D3) 1,250 mcg PO QWEEK 3 months nystatin-triamcinolone 100,000-0.1 unit/g-% 1 appl topical DAILY 10 days omeprazole 20 mg PO DAILY semaglutide (weight loss) 0.5 mg (0.5 mL) subcut QWEEK 30 days sumatriptan succinate take 1 tab at onset of headache; if no relief may repeat 1 tab after at least 2 hrs; max = 4 tabs/24 hr orally PRN; HPI Comments Details: 49 year old female presents for sleep evaluation per her PCP. She goes to bed at 10:30pm and gets up at 6am, with 3 bathroom breaks, she drinks a lot of water (40 oz) per day on average. She snores loudly, per her . She sleeps on her L. side >R. side. She grinds her teeth at night, and does not have a mouth guard. She has morning headaches, temporal L. sided, feels sore and then shock-like feeling, from front to back, 3x a week, lasting until noon, it disrupts her focus at work, she takes tylenol OTC as needed. Mood is good, but she becomes irritable some days with hot flashes have been occurring at night and now through the day. Diet has been difficult for her, she gained a lot of weight and has trouble breathing when exercising at the gym. She is on Semaglutide 0.5mg subcut. 1x week. RLS: Has to shake her legs at least 4x a week, and they want to get up and go and prevents her from sleeping. Denies pins and needles, spasms or cramps. She has to stand up and shake it out several times. Migraines: Sumatriptan 50mg, monitor headache - migraine raul, number frequencies, and time of onset and time subsides. [facility] Medical History (Updated 08/09/24 @ 12:34 by Rodrigo Yan PA-C) Rash Obesity (BMI 30.0-34.9) Varicose veins of bilateral lower extremities with pain Family history of diabetes mellitus in father Vitamin D deficiency Pulmonary nodule less than 6 mm determined by computed tomography of lung Facial dermatitis Kidney stones Gallstones without obstruction of gallbladder Obesity (BMI 30-39.9) Ureteral calculus, right Obstruction of right ureteropelvic junction due to stone Impaired fasting glucose Surgical History Hx laparoscopic cholecystectomy (10/14/22) Hx of section Gallstones without obstruction of gallbladder Hx of appendectomy Family History Father Diabetes mellitus HTN (hypertension) Hyperlipidemia Acute myocardial infarction Esophageal cancer Mother Depression Mental health disorder Social History Housing: House Alcohol intake: never Patient Tobacco Use Status: Never used Tobacco e-Cigarette/Vaping Use: Never Used Current occupational status: employed Cognitive needs: No Hearing needs: No Vision needs: No Review of Systems ENT Reports Normal hearing present Neuro Reports Normal hearing present Physical Exam Vital Signs: Last Vital Signs Pulse 76 08/09/24 09:18 BP 130/82 08/09/24 09:18 Pulse Ox 96 08/09/24 09:18 Oxygen Delivery Method Room Air 08/09/24 09:18 BMI result Body Mass Index 36.7 Const General: cooperative, comfortable and no acute distress Nutritional Appearance: average body habitus Orientation/consciousness: patient oriented x3 HEENT Face and sinus: Yes normal facial exam and Yes face symmetric Teeth and gingiva: other ([place] score of 4) Eyes Pupils: Equal, round and reactive pupils present Neck Neck: Yes full ROM and Yes supple Resp Effort & Inspection: normal respiratory effort and able to speak in complete sentences Neuro General: patient oriented x3, moves all extremities and deep tendon reflexes 2+ bilaterally Cranial nerves: Yes CN's II-XII intact bilaterally, Yes Facial sensation intact/muscles of mastication intact, Yes Equal, round and reactive pupils present, Yes Normal accommodation reflex present, Yes Bilaterally intact EOM present, Yes Nystagmus not present, Yes Normal facial strength present, Yes Midline tongue present, Yes Normal hearing present, Yes Ability to bilaterally rotate head present and Yes Ability to bilaterally elevate shoulders present Cognition (Neuro): normal cognition Gait exam (Neuro): Normal gait present Motor exam (neuro): 5/5 motor strength present throughout and Normal motor muscle tone present throughout Psych Appearance: grossly normal Mental Status: mental status grossly normal Speech and movement: Normal speech and movement present Affect: normal affect Attitude: cooperative Thought content: Normal thought content present Insight: Good insight present (Psych) Judgement: Good judgement present (Psych) Assessment & Plan Assessment & Plan (1) Fatigue due to sleep pattern disturbance: Code(s): R53.83 - Other fatigue; G47.9 - Sleep disorder, unspecified Category: Medical (2) GERD (gastroesophageal reflux disease): Code(s): K21.9 - Gastro-esophageal reflux disease without esophagitis Category: Medical Qualifiers: Esophagitis presence: with esophagitis Esophagitis bleeding: with hemorrhage Qualified Code(s): K21.01 - Gastro-esophageal reflux disease with esophagitis, with bleeding (3) Rash: Code(s): R21 - Rash and other nonspecific skin eruption Category: Medical (4) Loud snoring: Code(s): R06.83 - Snoring Category: Medical Plan Sleep disturbances will send her for HST Headaches will start her on Sumatriptan RLS? PLMD Denies Can take magnesium 400mg OTC PRN Mouthgaurd, will discuss next visit. Labs: TSH/ B12? B6? Folate / MMA Vit D low: continue taking Vitamin D weekly or as prescribed by your PCP. F/U in 3 months Orders: Orders Vitamin B12 and Folate Today G47.9 - Sleep disorder, unspecified, R53.83 - Other fatigue TSH reflex Free T4 Today G47.9 - Sleep disorder, unspecified, R53.83 - Other fatigue Vitamin D 25-OH Total Today G47.9 - Sleep disorder, unspecified, R53.83 - Other fatigue RT home sleep study Today G47.9 - Sleep disorder, unspecified, R53.83 - Other fatigue Methylmalonic Acid Today G47.9 - Sleep disorder, unspecified, R53.83 - Other fatigue Homocysteine Today G47.9 - Sleep disorder, unspecified, R53.83 - Other fatigue Medications: New omeprazole 20 mg PO DAILY 30 caps 3RF K21.9 - Gastro-esophageal reflux disease without esophagitis sumatriptan succinate take 1 tab at onset of headache; if no relief may repeat 1 tab after at least 2 hrs; max = 4 tabs/24 hr orally PRN; 14 tabs 1RF migraine headache Refilled cholecalciferol (vitamin D3) 1,250 mcg PO QWEEK 3 months 13 tabs 0RF E55.9 - Vitamin D deficiency, unspecified Coding Level of Care Code New Pt Level 4 (07182) Diagnoses Fatigue due to sleep pattern disturbance R53.83; G47.9 Gastroesophageal reflux disease with esophagitis and hemorrhage K21.01 Esophagitis presence: with esophagitis Esophagitis bleeding: with hemorrhage Rash R21 Loud snoring R06.83 Time Spent (min) 35 Comment Evaluation Sleep Questionnaire Difficulty falling asleep: No Difficulty staying asleep?: Yes Number of arousals: 3 Snoring: Yes Witnessed apneas: Yes Gasping arousals: Yes Nocturia: Yes GERD: Yes Vivid dreams: No Acting out dreams: No Abnormal behavior in sleep: No Abnormal movements in sleep: No Morning headaches: Yes Excessive daytime sleepiness: Yes Daytime naps: Yes Restless legs: Yes Hallucinations: No Sleep paralysis: Yes Drop attacks: No Sleep Study: No CPAP: No
[2024-08-09 09:18] VITALS: BP 130/82; PULSE 76; O2SAT 96; BMI 36.7
== END 2024-08-09 09:56 | disposition home or self-care (01) ==
PROVIDERS: PCP Internal Medicine; Visit Provider Physician Assistant Medical
DX: R53.83 Other fatigue (principal); G47.9 Sleep disorder, unspecified; K21.01 Gastro-esophageal reflux disease with esophagitis, with bleeding; R21 Rash and other nonspecific skin eruption; R06.83 Snoring
CPT/HCPCS: 99204

== ENCOUNTER 2024-09-12 10:42 | Outpatient (REF) | payer OTHER, SELFPAY ==
--- OUTSIDE RECORDS SUMMARY | 2024-09-12 13:17 | XMS_ITS ---
Author Organization [facility] Address [address] [place] [address] Care Team Providers Care Laborer Plumbing Name Role Phone JENNIFER PRATER REASON FOR VISIT close note Encounters Encounter Location Date Provider Diagnosis [facility] [address] [address] 04/04/2023 JENNIFER KRUSE PLAN OF TREATMENT No Information Progress Notes * Rahle MATHEWSDOB:1975 (48 yo F)Acc No.[id number]:04/04/2023 Patient:??Rahel Mathews :1975?Age:48 Y?Sex:Fe male Address:[address], [place] [address] * true * Date:??
--- OUTSIDE RECORDS SUMMARY | 2024-09-12 13:18 | XMS_ITS ---
Author Organization [facility] Address [address] [place] [address] Care Team Providers Care Material Flow Analyst Name Role Phone JENNIFER PRATER Unavailable [phone] BRUCE OVALLES Unavailable [phone] MEDICATIONS Medication SIG (Take, Route, Fr equency, Duration) Notes Start Date End Date Status Phentermine HCl 15 MG 1 capsule Orally O nce a day for 30 days 03/22/2023 Active Encounters Encounter Location Date Provider Diagnosis [place] [address] [address] 04/19/2023 BRUCE OVALLES PLAN OF TREATMENT No Information Progress Notes * REID RahelDOB:1975 (49 yo F)Acc No.[id number]:04/19/2023 Patient:??Rahel MATHEWS Provider:??Bruce Ovalles MD :1975?Age:48 Y?Sex:Fe male Date:04/19/2023 Address:[address], [id number] Subjective: * Chief Complaints: * ? * HPI: ?Constitutional:? Rahel is a 48 year old female that presents today for weight management follow up. Patient past medical history of multiple medical problems including obesity for which she is being educated on medical weight loss. Patient will be a good candidate for glucagon like peptide but because of cost reasons would like to take phentermine along with ALFONSO shot and probiotics and switch when there is better coverage available. Review of her [place] prescription monitoring program shows that she has been on phentermine by different providers but for a short duration lifestyle panel including step goal elimination of refined carbohydrates and incorporation of healthy proteins was discussed along with mindful eating. * ROS:?Constitutional: Patient denies any excessive fatigue with exercise, no weight loss, no fever and no night sweats Eyes: No eye discharge, no itching, no redness. Ear nose throat: No sore throat, postnasal drip, runny nose, Sneezing Cardiovascular: No chest pain, no shortness of breath, no dyspnea on exertion, no PND, no orthopnea, no irregular pulse Respiratory: No chronic cough, no hemoptysis, no sputum, no wheezing GI, no diarrhea, no constipation no blood in the stools, no pain associated with eating, no indigestion Genitourinary: No painful urination no hesitancy no blood in the urine Musculoskeletal, no limitations to walking and running, no joint deformity, no joint stiffness, no chronic back pain, no noise with joint movement Integumentary, no new skin rash. No new changes in skin moles Neurological: No history of seizures, memory loss, No language dysfunction, No inability to concentrate, no localized weakness, no sensation loss, no confusion Psychiatric: No depression, no suicidal thoughts, no anxiety Endocrine: No polyuria no polyphagia or polydipsia, no heat intolerance no cold intolerance Hematological: No easy bruising or Lymph node swelling. * Medical History:?? * Medications:??Taking Phenter mine HCl 15 MG Capsule 1 capsule Orally Once a day Objective: * Examination: ?General Examination: ?General: Well appearing, well nourished, age appropriate in no acute distress. Speaking in full, clear sentences. ?SKIN: Warm, dry intact. No rashes/lesions. Cap refill < 3 seconds ?HEENT: Normocephalic atraumatic. EOM intact. No nystagmus noted. PERRLA. No maxillary sinus tenderness. ?NECK: Supple without lymphadenopathy ?LUNGS: Clear to auscultation bilaterally, no wheezes, rales or rhonchi ?CARDIAC: Regular rate and rhythm, no murmurs, rubs or gallops. ?Abdomen: Soft, nontender, nondistended. No tenderness if all 4 quadrants. Normoactive bowel sounds. No masses palpable. ?Extremities: Warm and well perfused. No edema noted. ?MSK: Flexion extension bilaterally upper and lower extremities 5/5. Financial Management Consultant strength 5/5. No paraspinous muscle tenderness noted down the spine. No step off deformities. Bilateral lower extremitoes extension 5/5. ?Neuro: CN II-XI grossly intact. Speaking in full sentences. Hearing intact. Assessment: Plan: * Treatment: * Procedure Codes:??99622 NO S HOW OFFICE VISIT * Images: Billing Information: * Visit Code:?? * Procedure Codes:?? 89818 NO SHOW OFFICE VISIT. * Sign off status: Pending * Provider:??Bruce Ovalles MD Date:??04/19 History and Physical Notes * HPI (History of Present Illness) Category Sub-Category Detail Notes Category Not es Constitutional Ada is a 48 y ear old female that presents today for weight management follow up. Patient past medical history of multiple medical problems including obesity for which she is being educated on medical weight loss. Patient will be a good candidate for glucagon like peptide but because of cost reasons would like to take phentermine along with ALFONSO shot and probiotics and switch when there is better coverage available. Review of her [place] prescription monitoring program shows that she has been on phentermine by different providers but for a short duration lifestyle panel including step goal elimination of refined carbohydrates and incorporation of healthy proteins was discussed along with mindful eating. Examination Category Sub-Category Detail Notes Category Not es General Examination General: Well appearing, well nourished, age appropriate in no acute distress. Speaking in full, clear sentences. SKIN: Warm, dry intact. No rashes/lesions. Cap refill < 3 seconds HEENT: Normocephalic atraumatic. EOM intact. No nystagmus noted. PERRLA. No maxillary sinus tenderness. NECK: Supple without lymphadenopathy LUNGS: Clear to auscultation bilaterally, no wheezes, rales or rhonchi CARDIAC: Regular rate and rhythm, no murmurs, rubs or gallops. Abdomen: Soft, nontender, nondistended. No tenderness if all 4 quadrants. Normoactive bowel sounds. No masses palpable. Extremities: Warm and well perfused. No edema noted. MSK: Flexion extension bilaterally upper and lower extremities 5/5. Financial Management Consultant strength 5/5. No paraspinous muscle tenderness noted down the spine. No step off deformities. Bilateral lower extremitoes extension 5/5. Neuro: CN II-XI grossly intact. Speaking in full sentences. Hearing intact.
--- OUTSIDE RECORDS SUMMARY | 2024-09-12 13:18 | XMS_ITS | Patient Health Record ---
Author Organization [facility] Address [address] [place] [address] Care Team Providers Care Saddle Stitching Machine Operator Name Role Phone JENNIFER PRATER Unavailable ALLERGIES No Known Allergies REASON FOR REFERRAL No Information MEDICATIONS Medication SIG (Take, Route, Fr equency, Duration) Notes Start Date End Date Status Phentermine HCl 15 MG 1 capsule Orally O nce a day for 30 days 03/22/2023 Active PROBLEMS Problem Type ICD Code Onset Dates Problem Status W/U Status Risk SNOMED Code Notes Problem Prediabetes (R73.03) Active confirmed Prediabetes (070362319) Problem Obesity (BMI 30-39.9) (E66.9) Active confirmed Obesity (482518752) Problem BMI 34.0-34.9,adult (Z68.34) Active confirmed Body mass index 30.00 to 34.99 ([id number] 7) PLAN OF TREATMENT No Information Insurance Providers Payer Name Payer Address Payer Phone Subscriber Number Group Number Insured Name Patient Relationship to Insured Coverage Start Date Coverage End Date [employer] [address] [address] [place] [address] [id number] Rahel Mathews Self - patient is the insured 2022 MEDICATIONS ADMINISTERED Medication Instructions Date of Administration Dosage Notes MICC B12 INJECTION 03/22/2023
--- OUTSIDE RECORDS SUMMARY | 2024-09-12 13:18 | XMS_ITS ---
Author Organization [facility] Address [address] [place] [address] Care Team Providers Care Flight Engineer Inspector Name Role Phone JENNIFER PRATER Unavailable BRUCE OVALLES Unavailable [phone] ALLERGIES No Known Allergies REASON FOR VISIT pt presents in office today for wt mgmt f/u, declines SECA MEDICATIONS Medication SIG (Take, Route, Fr equency, Duration) Notes Start Date End Date Status Phentermine HCl 15 MG 1 capsule Orally O nce a day for 30 days 03/22/2023 Active VITAL SIGNS Blood pressure systolic 132 mm Hg 03/22/20 23 Blood pressure diastolic 90 mm Hg 023 Heart Rate 94 /min 03/22/2023 Height 63 in 03/22/2023 Weight 199.1 lbs 03/22/2023 BMI 35.27 kg/m2 03/22/2023 Oximetry 98 % 03/22/2023 Encounters Encounter Location Date Provider Diagnosis [facility] [address] [place] [id number] 03/22/2023 BRUCE OVALLES Obesity (BMI 30-39.9 ) E66.9 ; BMI 34.0-34.9,adult Z68.34 and Prediabetes R73.03 ASSESSMENTS Encounter Date Diagnosis Assessment Notes Treatment Notes Treatment Clinical Notes Section Notes 03/22/2023 Obesity (BMI 30-39.9) (ICD-10 - E66.9) Patient is here for weight management followup. We focused on significance of healthy lifestyle changes. We talked about need to track steps, work on portion control, read food labels, get adequate sleep, give adequate rest of the body, meditate, frequent nutritious meals including vegetables and healthy choices of meat and elimination of refined carbohydrates. We also talked about mindfulness and mindful eating. Particular focus was on Mindful eating choice of prescription medication and portion control Total time spent was 30 minutes with greater than 50% spent on counseling and coordinating care 03/22/2023 BMI 34.0-34.9,adult (ICD-10 - Z68.34) Patient is here for weight management followup. We focused on significance of healthy lifestyle changes. We talked about need to track steps, work on portion control, read food labels, get adequate sleep, give adequate rest of the body, meditate, frequent nutritious meals including vegetables and healthy choices of meat and elimination of refined carbohydrates. We also talked about mindfulness and mindful eating. Particular focus was on Mindful eating choice of prescription medication and portion control Total time spent was 30 minutes with greater than 50% spent on counseling and coordinating care 03/22/2023 Prediabetes (ICD-10 - R73.03) Patient is here for weight management followup. We focused on significance of healthy lifestyle changes. We talked about need to track steps, work on portion control, read food labels, get adequate sleep, give adequate rest of the body, meditate, frequent nutritious meals including vegetables and healthy choices of meat and elimination of refined carbohydrates. We also talked about mindfulness and mindful eating. Particular focus was on Mindful eating choice of prescription medication and portion control Total time spent was 30 minutes with greater than 50% spent on counseling and coordinating care PLAN OF TREATMENT Medication Medication Name Sig Start Date Stop Date Notes Phentermine HCl 15 MG 1 capsule Orally O nce a day for 30 days 03/22/2023 MEDICATIONS ADMINISTERED Medication Instructions Date of Administration Dosage Notes MICC B12 INJECTION 03/22/2023 Progress Notes * Rahel MATHEWSDOB:1975 (48 yo F)Acc No.[id number]:03/22/2023 Patient:??Rahel Mathews Provider:??Bruce Ovalles MD :1975?Age:48 Y?Sex:Fe male Date:03/22/2023 Address: [address], [facility], [facility] Subjective: * Chief Complaints: * ?1. pt presents in offi ce today for wt mgmt f/u, declines SECA. * HPI: ?Constitutional:? Patient seen and examined. Chart was reviewed and edited. Medications were reviewed. Problem list reviewed updated. Allergies reviewed. Social history reviewed. Reviewed recent labs and imaging b2b sales consultant notes. Took permission to exam and offered director compensation. Patient past medical history of multiple medical problems including obesity for which she is being educated on medical weight loss. Patient will be a good candidate for glucagon like peptide but because of cost reasons would like to take phentermine along with ALFONSO shot and probiotics and switch when there is better coverage available. Review of her [place] prescription monitoring program shows that she has been on phentermine by different providers but for a short duration lifestyle panel including step goal elimination of refined carbohydrates and incorporation of healthy proteins was discussed along with mindful eating. * ROS:?Constitutional: Patient denies any excessive fatigue with exercise, no weight loss, no fever and no night sweats ???Eyes: No eye discharge, no itching, no redness. ???Ear nose throat: No sore throat, postnasal drip, runny nose, Sneezing ???Cardiovascular: No chest pain, no shortness of breath, no dyspnea on exertion, no PND, no orthopnea, no irregular pulse ???Respiratory: No chronic cough, no hemoptysis, no sputum, no wheezing ???GI, no diarrhea, no constipation no blood in the stools, no pain associated with eating, no indigestion ???Genitourinary: No painful urination no hesitancy no blood in the urine ???Musculoskeletal, no limitations to walking and running, no joint deformity, no joint stiffness, no chronic back pain, no noise with joint movement ???Integumentary, no new skin rash. No new changes in skin moles ???Neurological: No history of seizures, memory loss, No language dysfunction, No inability to concentrate, no localized weakness, no sensation loss, no confusion ???Psychiatric: No depression, no suicidal thoughts, no anxiety ???Endocrine: No polyuria no polyphagia or polydipsia, no heat intolerance no cold intolerance ???Hematological: No easy bruising or Lymph node swelling. * Medical History:??Medical Hi story Verified. * Family History:??Father: karina morse.??Mother: alive.??2 sister(s) . 1 daughter(s) . .?? strong paternal history of DM father mhx terminally ill cancer mother mental health. * Social History:?no tobacco products, social drinking, no marijuana products. * Medications:??None * Allergies:??N.K.D.A. Objective: * Vitals:??HR:94/min, BP:132/9 0mm Hg, Wt:199.1lbs, BMI:35.27Index, Ht: 63 in, Oxygen sat %:98%. * Examination: ?General Examination: ?GENERAL APPEARANCE:??normal, alert, in no acute distress, pleasant, in no acute distress, well hydrated, well developed, well nourished.??HEAD:??normocephalic.??SKIN:??normal, good turgor, no rashes, no suspicious lesions, normal hair distribution, warm and dry.??NEUROLOGIC:??alert and oriented.??PSYCH:??alert, oriented, cognitive function intact, cooperative with exam, good eye contact, mood/affect full range.? Assessment: * Assessment: 1.??Obesity (BMI 30-39.9) - E66.9 (Primary)??2.??BMI 34.0-34.9,adult - Z68.34??3.??Prediabetes - R73.03?? Patient is here for weight m anagement followup. We focused on significance of healthy lifestyle changes. We talked about need to track steps, work on portion control, read food labels, get adequate sleep, give adequate rest of the body, meditate, frequent nutritious meals including vegetables and healthy choices of meat and elimination of refined carbohydrates. We also talked about mindfulness and mindful eating. Particular focus was on Mindful eating choice of prescription medication and portion control Total time spent was 30 minutes with greater than 50% spent on counseling and coordinating care. Plan: * Treatment: * Therapeutic Injections:? MICC B12 INJECTION (Dose No:1) (Route: Intramuscular) given by Malaika Fang on left deltoid * Procedure Codes:??72126 P/M NEWSPAPER MANAGER, INDIV 15 MIN * Images: Billing Information: * Visit Code:?? 73080 Office Visit, Est Pt., Level 4. Modifiers: 25 * Procedure Codes:?? 55081 P/M NEWSPAPER MANAGER, INDIV 15 MIN. * Sign off status: Completed true * Provider:??Bruce Ovalles MD Date:??03/22 History and Physical Notes * HPI (History of Present Illness) Category Sub-Category Detail Notes Category Not es Constitutional Patient seen and examined. Chart was reviewed and edited. Medications were reviewed. Problem list reviewed updated. Allergies reviewed. Social history reviewed. Reviewed recent labs and imaging b2b sales consultant notes. Took permission to exam and offered director compensation. Patient past medical history of multiple medical problems including obesity for which she is being educated on medical weight loss. Patient will be a good candidate for glucagon like peptide but because of cost reasons would like to take phentermine along with ALFONSO shot and probiotics and switch when there is better coverage available. Review of her [place] prescription monitoring program shows that she has been on phentermine by different providers but for a short duration lifestyle panel including step goal elimination of refined carbohydrates and incorporation of healthy proteins was discussed along with mindful eating. Examination Category Sub-Category Detail Notes Category Not es General Examination GENERAL APPEARANCE: normal, alert, in no acute distress, pleasant, in no acute distress, well hydrated, well developed, well nourished HEAD: normocephalic NEUROLOGIC: alert and oriented SKIN: normal, good turgor, no rashes, no suspicious lesions, normal hair distribution, warm and dry PSYCH: alert, oriented, cog nitive function intact, cooperative with exam, good eye contact, mood/affect full range
== END 2024-09-12 10:43 | disposition home or self-care (01) ==
LOC: HO.MAMMO 10:42
PROVIDERS: PCP Internal Medicine; Visit Provider Internal Medicine
DX: Z12.31 Encounter for screening mammogram for malignant neoplasm of breast (principal)
CPT/HCPCS: 77063; 77067

== ENCOUNTER → 2024-09-12 11:00 | Outpatient (BNV) | payer OTHER, SELFPAY | PROVIDERS: PCP Internal Medicine; Visit Provider Internal Medicine | DX: Z12.31 Encounter for screening mammogram for malignant neoplasm of breast (principal) | CPT/HCPCS: 77063; 77067 ==

== ENCOUNTER 2024-09-24 08:37 | Outpatient (REF) | payer OTHER, SELFPAY ==
--- OUTSIDE RECORDS SUMMARY | 2024-09-24 08:57 | XMS_ITS | Patient Health Record ---
Author Organization [facility] Address [address] [place] [address] Care Team Providers Care Americanization Teacher Name Role Phone JENNIFER PRATER Unavailable [phone] ALLERGIES No Known Allergies REASON FOR REFERRAL No Information MEDICATIONS Medication SIG (Take, Route, Fr equency, Duration) Notes Start Date End Date Status Phentermine HCl 15 MG 1 capsule Orally O nce a day for 30 days 03/22/2023 Active PROBLEMS Problem Type ICD Code Onset Dates Problem Status W/U Status Risk SNOMED Code Notes Problem Prediabetes (R73.03) Active confirmed Prediabetes (076309173) Problem Obesity (BMI 30-39.9) (E66.9) Active confirmed Obesity (768604644) Problem BMI 34.0-34.9,adult (Z68.34) Active confirmed Body mass index 30.00 to 34.99 ([id number] 7) PLAN OF TREATMENT No Information Insurance Providers Payer Name Payer Address Payer Phone Subscriber Number Group Number Insured Name Patient Relationship to Insured Coverage Start Date Coverage End Date [employer] [address] [address] [place] [address] [id number] Rahel Mathews Self - patient is the insured 2022 MEDICATIONS ADMINISTERED Medication Instructions Date of Administration Dosage Notes MICC B12 INJECTION 03/22/2023
--- OUTSIDE RECORDS SUMMARY | 2024-09-24 08:57 | XMS_ITS ---
Author Organization [facility] Address [address] [place] [address] Care Team Providers Care Timber Sprinkler Name Role Phone JENNIFER PRATER Unavailable [phone] BRUCE OVALLES Unavailable [phone] MEDICATIONS Medication SIG (Take, Route, Fr equency, Duration) Notes Start Date End Date Status Phentermine HCl 15 MG 1 capsule Orally O nce a day for 30 days 03/22/2023 Active Encounters Encounter Location Date Provider Diagnosis [place] [address] [address] 04/19/2023 BRUCE OVALLES PLAN OF TREATMENT No Information Progress Notes * REID RahelDOB:1975 (49 yo F)Acc No.[id number]:04/19/2023 Patient:??Rahel MATHEWS Provider:??Bruce Ovalles MD :1975?Age:48 Y?Sex:Fe male Date:04/19/2023 Address:[address], [id number] Subjective: * Chief Complaints: * ? * [...] is better coverage available. Review of her [place] prescription monitoring program shows that she has [...] extension bilaterally upper and lower extremities 5/5. Cut Filer strength 5/5. No paraspinous muscle tenderness noted down the spine. No step off deformities. Bilateral lower extremitoes extension 5/5. ?Neuro: CN II-XI grossly intact. Speaking in full sentences. Hearing intact. Assessment: Plan: * Treatment: * Procedure Codes:??19648 NO S HOW OFFICE VISIT * Images: Billing Information: * Visit Code:?? * Procedure Codes:?? 60089 NO SHOW OFFICE VISIT. * Sign off [...] is better coverage available. Review of her [place] prescription monitoring program shows that she has [...] extension bilaterally upper and lower extremities 5/5. Cut Filer strength 5/5. No paraspinous muscle tenderness noted down the spine. No step off deformities. Bilateral lower extremitoes extension 5/5. Neuro: CN II-XI grossly intact. Speaking in full sentences. Hearing intact.
--- OUTSIDE RECORDS SUMMARY | 2024-09-24 08:57 | XMS_ITS ---
Author Organization [facility] Address [address] [place] [address] Care Team Providers Care Soil Engineer Name Role Phone JENNIFER PRATER REASON FOR VISIT close note Encounters Encounter Location Date Provider Diagnosis [facility] [address] [address] 04/04/2023 JENNIFER KRUSE PLAN OF TREATMENT No Information Progress Notes * Rahel MATHEWSDOB:1975 (48 yo F)Acc No.[id number]:04/04/2023 Patient:??Rahel Mathews :1975?Age:48 Y?Sex:Fe male Address:[address], [place] [address] * true * Date:??
[2024-09-24 10:50] LABS: Estimated Average Glucose 120 mg/dL; Hemoglobin A1C 145.1033 umol/L; Hemoglobin A1c % 5.8 % (<6.0); Total Hemoglobin (HGBA1C) 3614.3625 umol/L
[2024-09-24 11:03] LABS: Alanine Aminotransferase 64 U/L (0-31); Anion Gap 13 (12-20); Aspartate Amino Transferase 49 U/L (5-31); Blood Urea Nitrogen 10 mg/dL (9-16); Calcium 9.2 mg/dL (8.4-10.2); Carbon Dioxide 24 mmol/L (22-29); Chloride 109 mmol/L (96-108); Estimated Glomerular Filt Rate > 60; Glucose Fasting 92 mg/dL (60-99); Potassium 3.8 mmol/L (3.3-5.1); Sodium 142 mmol/L (135-145)
[2024-09-24 11:13] LABS: Vitamin D 25-OH Total 22.7 ng/mL (>30)
[2024-09-27 14:08] LABS: TS Negative Control Passed; TS Panel A 0; TS Panel B 0; TS Positive Control Passed; TSpotTB Negative (Negative)
== END 2024-09-24 08:38 | disposition home or self-care (01) ==
LOC: HO.HMGCLDS 08:37
PROVIDERS: PCP Internal Medicine; Visit Provider Internal Medicine
DX: Z11.1 Encounter for screening for respiratory tuberculosis (principal); E66.811 Obesity, class 1; R73.01 Impaired fasting glucose; Z86.39 Personal history of other endocrine, nutritional and metabolic disease
CPT/HCPCS: 36415; 80048; 82306; 83036; 84450; 84460; 86481

== ENCOUNTER → 2024-11-22 12:57 | Outpatient (BNVA) | payer OTHER, SELFPAY | PROVIDERS: PCP Internal Medicine; Visit Provider Internal Medicine ==

== ENCOUNTER 2024-11-23 11:24 | Outpatient (AMB) | payer OTHER, SELFPAY ==
--- NOTE | 2024-11-23 11:21 | A.OFFPC_ITS ---
Intake Visit Reasons: weight management Allergies No Known Allergies Allergy (Unknown, Verified 11/23/24 11:37) Medication List - Last Reconciled 11/23/24 by Skye Cameron MD albuterol sulfate 90 mcg/actuation 2 puffs inhalation Q4-6H PRN cholecalciferol (vitamin D3) 1,250 mcg PO QWEEK 3 months mometasone 0.1% 1 appl topical DAILY PRN nystatin-triamcinolone 100,000-0.1 unit/g-% 1 appl topical DAILY 10 days omeprazole 20 mg PO DAILY semaglutide (weight loss) 0.5 mg (0.5 mL) subcut QWEEK 30 days sumatriptan succinate take 1 tab at onset of headache; if no relief may repeat 1 tab after at least 2 hrs; max = 4 tabs/24 hr orally PRN; Tobacco use date assessed: 11/23/24 Dental Screening Dental Screen Date: 11/23/24 Did you have a dental visit in the last 12 months?: No Did you have a dental problem in the last 6 months where you did not have access to dental care?: No Was dental information given to patient?: Patient has dentist HPI weight management HPI Details 49-year-old lady with obesity, BMI 36, h ere today for follow-up on her weight. She is currently taking Wegovy at 0.5 mg injected once a week, but does not notice any change in her appetite and has not been losing weight despite exercising regularly and following recommended diet. Had incidental findings of small pulmonary nodules seen on a CAT scan of the chest done at the ER in 2022, denies any cough no abnormal weight loss, no shortness of breath reported. Never smoked cigarettes, no history of vaping. [facility] Medical History (Updated 11/24/24 @ 01:04 by Skye Cameron MD) Rash Obesity (BMI 30.0-34.9) Varicose veins of bilateral lower extremities with pain Family history of diabetes mellitus in father Vitamin D deficiency Pulmonary nodule less than 6 mm determined by computed tomography of lung Facial dermatitis Kidney stones Gallstones without obstruction of gallbladder Obesity (BMI 30-39.9) Ureteral calculus, right Obstruction of right ureteropelvic junction due to stone Impaired fasting glucose Surgical History Hx laparoscopic cholecystectomy (10/14/22) Hx of section Gallstones without obstruction of gallbladder Hx of appendectomy Family History Father Diabetes mellitus HTN (hypertension) Hyperlipidemia Acute myocardial infarction Esophageal cancer Mother Depression Mental health disorder Social History Housing: House Alcohol intake: never Patient Tobacco Use Status: Never used Tobacco e-Cigarette/Vaping Use: Never Used Current occupational status: employed Cognitive needs: No Hearing needs: No Vision needs: No Questionnaire PHQ-9 Over the last 2 weeks, how often have you been bothered by any of the following problems? 1. Little interest or pleasure in doing things: not at all 2. Feeling down, depressed, or hopeless: not at all 3. Trouble falling or staying asleep, or sleeping too much: not at all 4. Feeling tired or having little energy: several days 5. Poor appetite or overeating: more than half the days 6. Feeling bad about yourself - or that you are a failure or have let yourself or your family down: not at all 7. Trouble concentrating on things, such as reading the newspaper or watching television: not at all 8. Moving or speaking so slowly that other people could have noticed. Or the opposite - being so fidgety or restless that you have been moving around a lot more than usual: not at all 9. Thoughts that you would be better off or of hurting yourself in some way: not at all Total score: 3 Depression Screening Interpretation: Negative Depression Screening Done: Yes 79203 - PHQ-9 Billing: Yes Source: Developed by Drs. Pj Balderas, Gisel De Jesus, Agustin Roa and colleagues, with an educational richelle from [employer]. Thrive Questionnaire Date Thrive assessed: 11/23/24 I am a: Patient What is your living situation today?: I have a steady place to live Within the past 12 months, did the food you bought not last and you didn't have the money to get more?: Never true Within the past 12 months, did you worry whether your food would run out before you got money to buy more?: Never true Do you have trouble paying for medicines?: No Do you have trouble getting transportation to medical appointments?: No Do you have trouble paying your heating and electricity bill?: No Do you have trouble taking care of your child, family member or friend?: No Do you have trouble with day-to-day activities such as bathing, preparing meals, shopping, managing finances, etc.?: No Are you currently unemployed and looking for a job?: No Are you interested in more education?: Yes Currently or been in a relationship where the following occur: No concerns reported THRIVE Score: 0 FLORENCIO-7 AMB Questionnaire FLORENCIO-7 Date FLORENCIO - 7 assessed: 03/20/24 Source: Developed by Drs. Pj Balderas, Gisel De Jesus, Agustin Roa and colleagues, with an educational richelle from [employer]. Review of Systems Const Denies body aches, Denies headache(s) and Denies malaise Eyes Denies change in vision ENT Denies dizziness and Denies headache(s) Card Denies chest pain, Denies lightheadedness and Denies dyspnea Resp Denies cough and Denies dyspnea GI Denies abdominal pain, Denies change in bowel habits and Denies heartburn Reports no additional complaints Musc Reports stiffness Skin/Breast Denies breast pain, Denies breast mass and Denies lesions Neuro Denies dizziness and Denies headache(s) Endo Reports no additional complaints Everette/Lymph Reports no additional complaints Aller/Immun Reports no additional complaints Physical exam (Primary Care) Tobacco/Smoking Status: Tobacco use Status Tobacco use date assessed 11/23/24 11/23/24 11:22 Patient Tobacco Use Status Never used Tobacco 11/23/24 11:22 e-Cigarette/Vaping Use Never Used 11/23/24 11:22 Depression Screening Interpretation: Negative Thrive Assessment: Date of Thrive Assessment Date Thrive assessed 03/20/24 11/23/24 11:22 Currently or been in a relationship where the following occur: No concerns reported Telehealth Telehealth Telehealth Platform: [facility] Location of provider rendering services: practice address Location of patient: address on file Patient Identification confirmed using: Name, : Yes Telehealth method: video Patient verbally consented to treatment: Yes Patient verbally consented to billing insurance company: Yes Patient informed of any privacy concerns related to visit: Yes Minutes spent on Phone/Video with Pt.: 15 Coding Level of Care Code Tele Est Pt Level 4 (65341) Diagnoses Obesity (BMI 30-39.9) E66.9 Pulmonary nodule less than 6 mm determined by computed tomography of lung R91.1 Additional Codes PHQ-9 - 73300 - PHQ-9 Billing: Yes ([id number]) Assessment & Plan Assessment & Plan (1) Obesity (BMI 30-39.9): Code(s): E66.9 - Obesity, unspecified Category: Medical Plan: Increased wegovy dose to 1 mg injected subcutaneously once a week.. Reinforced importance of adhering to healthy eating habits, and doing at least 30 minutes of moderate intensity exercise 4 times a week. (2) Pulmonary nodule less than 6 mm determined by computed tomography of lung: Code(s): R91.1 - Solitary pulmonary nodule Category: Medical Plan: Ordered a CT scan of chest for follow-up of pulmonary nodule seen on CAT scan in 2022 Orders: Orders CT chest wo IV con 11/23/24 R91.1 - Solitary pulmonary nodule Medications: Changed From semaglutide (weight loss) administer weeks 1 through 4 of therapy 0.5 mg (0.5 mL) subcut QWEEK 30 days 2 mL 2RF E66.9 - Obesity, unspecified To Wegovy (semaglutide (weight loss)) administer weeks 1 through 4 of therapy 1 mg (0.5 mL) subcut QWEEK 30 days 2 mL 2RF NS E66.9 - Obesity, unspecified
--- OUTSIDE RECORDS SUMMARY | 2024-11-23 11:51 | XMS_ITS | Patient Health Record ---
Author Organization [facility] Address [address] [place] [address] Care Team Providers Care Optometric Technician Name Role Phone JENNIFER PRATER Unavailable ALLERGIES [...] Notes Problem Prediabetes (R73.03) Active confirmed Prediabetes (932042265) Problem Obesity (BMI 30-39.9) (E66.9) Active confirmed Obesity (632026056) Problem BMI 34.0-34.9,adult (Z68.34) Active confirmed Body mass index 30.00 to 34.99 ([id number] 7) PLAN OF TREATMENT No Information Insurance Providers Payer Name Payer Address Payer Phone Subscriber Number Group Number Insured Name Patient Relationship to Insured Coverage Start Date Coverage End Date [employer] [address] [address] [place] [address] [id number] [phone] Rahel Mathews Self - patient is the insured 2022 MEDICATIONS ADMINISTERED Medication Instructions Date of Administration Dosage Notes MICC B12 INJECTION 03/22/2023
--- OUTSIDE RECORDS SUMMARY | 2024-11-23 11:51 | XMS_ITS | Continuity of Care Document ---
Author Organization [facility] Address [address] [facility] [address] [facility] [address] [place] [address] Phone Care Team Providers Care Inspector Plug Seam Name Role Phone Clay BARRETT, BURTON, Pj VUONG Unavailable U navailable Allergies, Adverse Reactions, Alerts Substance Reaction Status Criticality No Known Allergies Active No Inform ation Procedures Procedure Date Endovenous Laser, 1st Vein- CT & [place] Endovenous laser vein addon- CT & [place] November Offic/outpt E&m Estab 5 Min Trial- Telem edicine CT & [place] Office/Oupt E&M New Pt 45 Mins- CT & [place] Surgical Stockings Thigh Lengt Duplex Scan-extrem Veins; Comp- CT & [place] Advance Directives Directive Yes / No Effective Date File Name No Information Encounters Encounter Description Practice Location Reason(s) For Visit Diagnoses Date Provider Providers Copied on Encounter [facility], [address] [place] [address] Dr Paul [address], [place], [id number], [place] tel:[phone] [facility] No Information Clay BARRETT, CAROLANN MANRIQUE. [address] [facility], [address], [place], [id number], [place]. tel:[phone] [facility], [address] [place] [address] Dr Paul 1000SuAnastasia higgins [place], [id number], [place] tel:[phone] [facility] Chronic venous hypertension (idiopathic) with inflammation of right lower extremity 5 Clay BARRETT, BURTON, CAROLANN Oliva. [address] [place] [address], [facility] [place], [id number], [place]. tel:[phone] Referring Provider: Skye Vivas, [address] [facility] [address] [facility], [place], [address]. tel:[phone] [facility], [address] [place] [address] Dr Paul 999Anastasia higgins [place], [id number], [place] tel:[phone] [facility] No Information 5 Clay BARRETT RVT, CAROLANN Oliva. [address] [place] [address], [facility] [place], [id number], [place]. tel:[phone] Offic/outpt E&m Estab 5 Min Trial- Telemedicine CT & [place] [facility], [address] [place] [address] Dr Paul 999Anastasia higgins [place], [id number], [place] tel:[phone] [facility] Localized edemaCramp and spasmRestless legs syndromeVenou s insufficiency (chronic) (peripheral) 5 Juan Alberto Padgett. [address] [place] [address], [facility] [place], [id number], [place]. tel:[phone] Referring Provider: Skye Vivas, [address] [facility] [address] [facility], [place], [address]. tel:[phone] Office/Oupt E&M New Pt 45 Mins- CT & [place] [facility], [address] [place] [address] Dr Paul 1000SuAnastasia higgins [place], [id number], [place] tel:[phone] [facility] - [facility] Chronic venous hypertension (idiopathic) with other complications of bilateral lower extremityRest less legs syndromeCramp and spasmLocalize d edema 5 Clay BARRETT, BURTON, CAROLANN Oliva. [address] [facility], [facility] [address], [place], [place], [id number], [place]. tel:[phone] Referring Provider: Skye Vivas, [address] [place] [address] [address] [place], [address]. tel:[phone] [facility], [address] [facility] [address], [place], [id number], [place] tel:[phone] [facility] Chronic venous hypertension (idiopathic) with other complications of bilateral lower extremity 5 Clay BARRETT, BURTON, CAROLANN Oliva. [address] [facility], [place] [address], [place], [place], [id number], [place]. tel:[phone] Referring Provider: Skye Vivas, [address] [place] [address], [address]. tel:[phone] Family History Family Member Type Diagnosis Age At Onset No Information Payers Payer name Insurance type Covered constitution party ID Authoriza tion(s) A[employer]na [id number] Social History Type Description Quantity Date Captured Comments Sex Female Smoking Status No Information Chief Complaint And Reason For Visit No Information Reason For Referral Reason For Referral No Information Plan Of Treatment Date Type Action Status Appointment Rahel Mathews BOOKED Appointment Rahel Mathews BOOKED Appointment Rahel Mathews BOOKED Appointment Rahel Mathews BOOKED Appointment Rahel Mathews BOOKED History Of Present Illness Encounter Date Complaint History Of Prese nt Illness No Information Functional Status Date Functional Assessmen t No Information Instructions Date Instruction Additional Infor mation Patient education booklet given Related to Localized edema Pre and post instruc tions reviewed and provided Related to Localized edema Patient education booklet given Related to Chronic venous hypertension (idiopathic) with other complications of bilateral lower extremity Pre and post instruc tions reviewed and provided Related to Chronic venous hypertension (idiopathic) with other complications of bilateral lower extremity Assessments Type Assessment Date No Information Patient Care Teams Name Effective Dates (start - stop) Status Members No Information
== END 2024-11-23 13:06 | disposition home or self-care (01) ==
LOC: HO.HMCC 11:24
PROVIDERS: PCP Internal Medicine; Visit Provider Internal Medicine
DX: R91.1 Solitary pulmonary nodule (principal); E66.9 Obesity, unspecified

== ENCOUNTER → 2024-11-23 11:24 | Outpatient (BNVA) | payer OTHER, SELFPAY | PROVIDERS: PCP Internal Medicine; Visit Provider Internal Medicine | DX: E66.9 Obesity, unspecified (principal); Z68.36 Body mass index [BMI] 36.0-36.9, adult; R91.1 Solitary pulmonary nodule | CPT/HCPCS: 96127 ==

== ENCOUNTER 2025-01-14 13:08 | Outpatient (REF) | payer OTHER, SELFPAY ==
--- OUTSIDE RECORDS SUMMARY | 2024-11-30 04:15 | XMS_ITS | Continuity of Care Document ---
Author Organization [facility] Address [address] [facility] [address] [facility] [address] [facility] [address] [place] [address] Phone Care Team Providers Care Sports Media Name Role Phone Clay BARRETT, BURTON, Pj VUONG Unavailable U navailable Allergies, Adverse Reactions, Alerts Substance Reaction Status Criticality No Known Allergies Active No Inform ation Procedures Procedure Date Duplex Scan-extrem Veins; Uni/ CT & [place] M Endovenous Laser, 1st Vein- CT & [place] [...] Providers Copied on Encounter [facility], [address] [place] [address] Dr Paul [address]An[place], [id number], [place] tel:[phone] [facility] Encounter for follow-up examination after completed treatment for conditions other than malignant neoplasmChron ic venous hypertension (idiopathic) with other complications of right lower extremity Clay BARRETT, CAROLANN MANRIQUE. [address] [place] [address], [facility] [place], [id number], [place]. tel:[phone] Referring Provider: Skye Vivas, [address] [place] [address], [place], [address]. tel:[phone] [facility] [place], [address] [place] [address] Dr Paul [address] 1000An[place], [id number], [place] tel:[phone] [facility] - [facility] Chronic venous hypertension (idiopathic) with inflammation of right lower extremity 5 Clay BARRETT RVT, CAROLANN Oliva. [address] [place] [address], [facility] [place], [id number], [place]. tel:[phone] Referring Provider: Skye Vivas, [address] [place] [address], [place], [address]. tel:[phone] [facility] [facility] [place], [address] [place] [address] Dr Paul 1000[address] 1000Anast[place], [id number], [place] tel:[phone] [facility] - [facility] No Information 5 Clay BARRETT RVT, CAROLANN Oliva. [address] [place] [address], [facility] [place], [id number], [place]. tel:[phone] Offic/outpt E&m Estab 5 Min Trial- Telemedicine CT & [place] [facility] [place], [address] [place] [address] Dr Paul [address] 1000An[place], [id number], [place] tel:[phone] [facility] - [facility] Localized edemaCramp and spasmRestless legs syndromeVenou s insufficiency (chronic) (peripheral) Oct- 5 Juan Alberto Padgett. [address] [place] [address], [facility] [place], [id number], [place]. tel:[phone] Referring Provider: Skye Vivas, [address] [place] [address], [place], [address]. tel:[phone] Office/Oupt E&M New Pt 45 Mins- CT & [place] [facility], [address] [place] [address] [address] [place], [place] [address]An[place], [id number], tel:[phone] [facility] Chronic venous hypertension (idiopathic) with other complications of bilateral lower extremityRest less legs syndromeCramp and spasmLocalize d edema 5 Clay BARRETT RVT, CAROLANN Oliva. [address] [place] [address], [id number], [place]. tel:[phone] Referring Provider: Skye [place] MD [place], [address] [place] [address], [address]. tel:[phone] [place] [facility], [address] [place] [address] Dr [address] [place], [place] [address]An[place], [id number], tel:[phone] [facility] Chronic venous hypertension (idiopathic) with other complications of bilateral lower extremity 5 Clay BARRETT RVT, CAROLANN Oliva. [address] [place] [address], [id number], [place]. tel:[phone] Referring Provider: Skye [place] MD [place], [address] [place] [address], [address]. tel:[phone] Family History Family Member Type Diagnosis Age At Onset No Information Payers Payer name Insurance type Covered green party ID Authoriza tion(s) Aetna [id number] Social History Type Description Quantity Date Captured Comments Sex Female Smoking Status No Information Chief Complaint And Reason For Visit No Information Reason For Referral Reason For Referral No Information History Of Present Illness Encounter Date Complaint History Of Prese nt Illness No Information Functional Status Date Functional Assessmen t No Information Instructions Date Instruction Additional Infor mation Pre and post instruc tions reviewed and provided Related to Localized edema Patient education booklet given Related to Localized edema Pre and post instruc tions reviewed and provided Related to Chronic venous hypertension (idiopathic) with other complications of bilateral lower extremity Patient education booklet given Related to Chronic venous hypertension (idiopathic) with other complications of bilateral lower extremity Assessments Type Assessment Date No Information Patient Care Teams Name Effective Dates (start - stop) Status Members No Information
--- NOTE | ~2025-01-14 | CT_ITS ---
EXAMINATION: CT CHEST WITHOUT CONTRAST CLINICAL INFORMATION: Follow-up pulmonary nodules first identified 2022 COMPARISON: None provided. If made available, this report can be addended after comparison is made TECHNIQUE: Multidetector volumetric CT imaging of the chest was done. Axial MIP volume rendering provided. Sagittal and coronal reformatted images were obtained. This CT examination was performed using dose optimization techniques as appropriate, variously including the following: *Automated exposure control *Adjustment of mA and/or kV according to patient size (this includes techniques or standardized protocols for targeted exams where dose is matched to indication/reason for exam; i.e. extremities or head) *Use of iterative reconstruction technique DLP: 190 mGY*cm FINDINGS: LUNGS: Pulmonary nodules measured on series 4. Image 45/151:2 x 4 mm solid subpleural nodule in the anterior segment right upper lobe. Image 88/151: Lateral segment right middle lobe solid nodule is 3 mm. Image 24/151: Apical posterior segment left upper lobe solitary pulmonary nodule is 3 mm. Image 74/151: In the lateral portion of the superior lingular segment of the left upper lobe there is a 2 mm solid pulmonary nodule Vague nodular groundglass densities are noted in the posterior subpleural region of the posterior segment of the left lower lobe. Linear subsegmental atelectasis or scarring is present in the inferior lingula. MEDIASTINUM: Vague thymic region density is present in the anterior mediastinum. A few shotty lymph nodes are present. CORONARY ARTERY CALCIFICATION: Absent PLEURA: There is no pleural effusion. No pleural mass or thickening. AXILLA: No lymphadenopathy. UPPER ABDOMEN: There are clips from cholecystectomy. OSSEOUS STRUCTURES: Unremarkable. CT/CT chest wo IV con IMPRESSION: Small solid pulmonary nodules. These nodules may have also been present on the prior examination, however it is not available for direct comparison. No further follow-up is indicated per Fleischner Society recommendations, unless the patient falls into a high risk category, in which case a 12 month follow-up CT chest without contrast is optional. High risk patients includes those with a history of smoking, first-degree relative with lung cancer, or exposure to uranium, radon, or asbestos. Electronically signed by: Fred Quinones MD 01/14/2025 02:52 PM EDT
--- OUTSIDE RECORDS SUMMARY | 2025-01-14 13:37 | XMS_ITS | Patient Health Record ---
Author Organization [facility] Address [address] [place] [address] Care Team Providers Care Steam Turbine Assembler Name Role Phone JENNIFER PRATER Unavailable Allergies No Known Allergies Reason For Referral No Information Medications Medication SIG (Take, Route, Fr equency, Duration) Notes Start Date End Date Status Phentermine HCl 15 MG 1 capsule Orally O nce a day; Duration: 30 days 03/22/2023 Active Problems Problem Type SNOMED Code ICD Code Onset Dates Problem Status W/U Status Risk Notes Problem Prediabetes (247257565) Prediabetes (R73.03) Active confirmed Problem Obesity (885513211) Obesity (BMI 30-39.9) (E66.9) Active confirmed Problem Body mass index 30.00 to 34.99 (906521029464481 ) BMI 34.0-34.9,adult (Z68.34) Active confirmed Plan Of Treatment No Information Insurance Providers Payer Name Payer Address Payer Phone Subscriber Number Group Number Insured Name Patient Relationship to Insured Coverage Start Date Coverage End Date [employer] [address] [address] [place] [address] [id number] Rahel Mathews Self - patient is the insured 2022 Medications Administered Medication Instructions Date of Administration Dosage Notes MICC B12 INJECTION 03/22/2023
== END 2025-01-14 13:09 | disposition home or self-care (01) ==
LOC: HO.CT 13:08
PROVIDERS: PCP Internal Medicine; Visit Provider Internal Medicine
DX: R91.1 Solitary pulmonary nodule (principal)
CPT/HCPCS: 71250

== ENCOUNTER → 2025-01-14 13:13 | Outpatient (BNV) | payer OTHER, SELFPAY | PROVIDERS: PCP Internal Medicine; Visit Provider Radiology Diagnostic Radiology | DX: R91.8 Other nonspecific abnormal finding of lung field (principal) | CPT/HCPCS: 71250 ==

== ENCOUNTER 2025-01-30 13:01 | Outpatient (AMB) | payer OTHER, SELFPAY ==
--- OUTSIDE RECORDS SUMMARY | 2024-11-30 04:15 | XMS_ITS | Continuity of Care Document ---
Author Organization [facility] Address [address] [facility] [address] [facility] [address] [place] [address] Phone Care Team Providers Care Attending Urologist Name Role Phone Clay BARRETT, BURTON, Pj [...] Providers Copied on Encounter [facility], [address] [place] [address] Dr Paul 1000[address] 1000An[place], [id number], [place] tel:[phone] [facility] Encounter for follow-up examination after completed treatment for conditions other than malignant neoplasmChron ic venous hypertension (idiopathic) with other complications of right lower extremity Clay BARRETT, CAROLANN MANRIQUE. [address] [place] [address], [facility] [place], [id number], [place]. tel:[phone] Referring Provider: Skye Vivas, [address] [place] [address], [place], [address]. tel:[phone] [facility] [place], [address] [place] [address] Dr Paul 1000[address] 1000An[place], [id number], [place] tel:[phone] [facility] - [facility] Chronic venous hypertension (idiopathic) with inflammation of right lower extremity 5 Clay BARRETT RVT, CAROLANN Oliva. [address] [place] [address], [facility] [place], [id number], [place]. tel:[phone] Referring Provider: Skye Vivas, [address] [place] [address], [place], [address]. tel:[phone] [place] [facility] MD [place], [address] [place] [address] Dr Paul 1000[address] 1000An[place], [id number], [place] tel:[phone] [facility] - [facility] No Information 5 Clay BARRETT RVT, CAROLANN Oliva. [address] [place] [address], [facility] [place], [id number], [place]. tel:[phone] Offic/outpt E&m Estab 5 Min Trial- Telemedicine CT & [place] [facility] [place], [address] [place] [address] Dr Paul [address] 1000[place], [id number], [place] tel:[phone] [facility] - [facility] Localized edemaCramp and spasmRestless legs syndromeVenou s insufficiency (chronic) (peripheral) Oct- 5 Juan Alberto Padgett. [address] [place] [address], [facility] [place], [id number], [place]. tel:[phone] Referring Provider: Skye Vivas, [address] [place] [address], [place], [address]. tel:[phone] Office/Oupt E&M New Pt 45 Mins- CT & [place] [facility], [address] [place] [address] Dr Paul [address] [place], [place] [address]An[place], [id number], tel:[phone] [facility] Chronic venous hypertension (idiopathic) with other complications of bilateral lower extremityRest less legs syndromeCramp and spasmLocalize d edema 5 Clay BARRETT RVT, CAROLANN Oliva. [address] [place] [address], [id number], [place]. tel:[phone] Referring Provider: Skye [place] MD Ortega, [address] [place] [address], [address]. tel:[phone] [place] [facility], [address] [place] [address] Dr Paul [address] [place], [place] [address]An[place], [id number], tel:[phone] [facility] Chronic venous hypertension (idiopathic) with other complications of bilateral lower extremity 5 Clay BARRETT RVT, CAROLANN Oliva. [address] [place] [address], [id number], [place]. tel:[phone] Referring Provider: Skye [place] MD Ortega, [address] [place] [address], [address]. tel:[phone] Family History Family Member Type Diagnosis Age At Onset No Information Payers Payer name Insurance type Covered republican ID Authoriza tion(s) Aetna [id number] Social History Type Description Quantity Date Captured [...]
[2025-01-30 13:08] VITALS: BP 136/78; PULSE 81; RESP 16; TEMP 36.8; O2SAT 95; BMI 36.8
--- NOTE | 2025-01-30 13:08 | A.OFFPC_ITS ---
Vital Signs 01/30/25 13:08 Height 5 ft 3 in Weight 208 lb BMI 36.8 BP 136/78 Blood Pressure Location Lt brachial Position Sitting Respiration 16 Pulse 81 Pulse Source Pulse Oximeter Temp 98.2 F Temp Source Oral Pulse Oximetry (%) 95 Oxygen Delivery Method Room Air Intake Visit Reasons: F/U on weight & CT results Intake Note: Pt is here today for weight and CT scan results Allergies No Known Allergies Allergy (Unknown, Verified 01/30/25 13:34) Medication List - Last Reconciled 01/30/25 by Skye Cameron MD albuterol sulfate 90 mcg/actuation 2 puffs inhalation Q4-6H PRN mometasone 0.1% 1 appl topical DAILY PRN nystatin-triamcinolone 100,000-0.1 unit/g-% 1 appl topical DAILY 10 days omeprazole 20 mg PO DAILY phentermine 18.75 mg (1/2 x 37.5 mg) PO DAILY sumatriptan succinate take 1 tab at onset of headache; if no relief may repeat 1 tab after at least 2 hrs; max = 4 tabs/24 hr orally PRN; Tobacco use date assessed: 11/23/24 Dental Screening Dental Screen Date: 01/30/25 Did you have a dental visit in the last 12 months?: Yes Did you have a dental problem in the last 6 months where you did not have access to dental care?: No Was dental information given to patient?: Patient has dentist HPI HPI Comments History of Present Illness Details 49-year-old lady with obesity, here toda y for follow-up after starting phentermine eating 0.75 mg taken once a day 2 hours after breakfast. She has tried cutting back on her sweets and eat healthier, and has been more active, but still no significant weight loss noted on the medication. Tolerating it well without any side effects. Has history of pulmonary nodule seen on imaging study, , here today for follow-up. Denies any abdominal weight loss, no cough, shortness of breath, wheezing, no fatigue issues. [facility] Medical History Rash Obesity (BMI 30.0-34.9) Varicose veins of bilateral lower extremities with pain Family history of diabetes mellitus in father Vitamin D deficiency Pulmonary nodule less than 6 mm determined by computed tomography of lung Facial dermatitis Kidney stones Gallstones without obstruction of gallbladder Obesity (BMI 30-39.9) Ureteral calculus, right Obstruction of right ureteropelvic junction due to stone Impaired fasting glucose Surgical History Hx laparoscopic cholecystectomy (10/14/22) Hx of section Gallstones without obstruction of gallbladder Hx of appendectomy Family History Father Diabetes mellitus HTN (hypertension) Hyperlipidemia Acute myocardial infarction Esophageal cancer Mother Depression Mental health disorder Social History Housing: House Alcohol intake: never Patient Tobacco Use Status: Never used Tobacco e-Cigarette/Vaping Use: Never Used Current occupational status: employed Cognitive needs: No Hearing needs: No Vision needs: No Questionnaire PHQ-9 Over the last 2 weeks, how often have you been bothered by any of the following problems? 1. Little interest or pleasure in doing things: not at all 2. Feeling down, depressed, or hopeless: not at all 3. Trouble falling or staying asleep, or sleeping too much: not at all 4. Feeling tired or having little energy: not at all 5. Poor appetite or overeating: not at all 6. Feeling bad about yourself - or that you are a failure or have let yourself or your family down: not at all 7. Trouble concentrating on things, such as reading the newspaper or watching television: several days 8. Moving or speaking so slowly that other people could have noticed. Or the opposite - being so fidgety or restless that you have been moving around a lot more than usual: several days 9. Thoughts that you would be better off or of hurting yourself in some way: not at all Total score: 2 Depression Screening Interpretation: Negative Depression Screening Done: Yes 29895 - PHQ-9 Billing: Yes Source: Developed by Drs. Pj Balderas, Gisel De Jesus, Agustin Roa and colleagues, with an educational richelle from [employer]. Thrive Questionnaire Date Thrive assessed: 11/23/24 I am a: Patient What is your living situation today?: I have a steady place to live Within the past 12 months, did the food you bought not last and you didn't have the money to get more?: Never true Within the past 12 months, did you worry whether your food would run out before you got money to buy more?: Never true Do you have trouble paying for medicines?: No Do you have trouble getting transportation to medical appointments?: No Do you have trouble paying your heating and electricity bill?: No Do you have trouble taking care of your child, family member or friend?: No Do you have trouble with day-to-day activities such as bathing, preparing meals, shopping, managing finances, etc.?: No Are you currently unemployed and looking for a job?: No Are you interested in more education?: No Please select the resources that you would like help with: None Currently or been in a relationship where the following occur: No concerns reported THRIVE Score: 0 AUDIT C Alcohol Use Questionnaire (AUDIT-C) 1. How often do you have a drink containing alcohol?: Monthly or less 2. How many drinks containing alcohol do you have on a typical day when you are drinking?: 1 or 2 3. How often do you have six or more drinks on one occasion?: Never Total Score: 1 FLORENCIO-7 AMB Questionnaire FLORENCIO-7 Date FLORENCIO - 7 assessed: 01/30/25 Feeling nervous, anxious, or on edge: 0 = Not at all Not being able to stop or control worryin = Not at all Worrying too much about different things: 0 = Not at all Trouble relaxin = Not at all Being so restless that it is hard to sit still: 0 = Not at all Becoming easily annoyed or irritable: 0 = Not at all Feeling afraid as if something awful might happen: 0 = Not at all Total FLORENCIO-7 score (0-4 normal; 5-9 mild; 10-14 moderate; 15-21 severe): 0 Source: Developed by Drs. Pj Balderas, Gisel De Jesus, Agustin Roa and colleagues, with an educational richelle from [employer] FLORENCIO-7 Assessment Billing FLORENCIO-7 Assessment Tool: FLORENCIO-7 Assessment 14473 Review of Systems Const Denies body aches, Denies headache(s) and Denies malaise Eyes Denies change in vision ENT Denies dizziness and Denies headache(s) Card Denies chest pain, Denies lightheadedness and Denies dyspnea Resp Denies cough and Denies dyspnea GI Denies abdominal pain, Denies change in bowel habits and Denies heartburn Reports no additional complaints Musc Reports stiffness Skin/Breast Denies breast pain, Denies breast mass and Denies lesions Neuro Denies dizziness and Denies headache(s) Endo Reports no additional complaints Everette/Lymph Reports no additional complaints Aller/Immun Reports no additional complaints Physical exam (Primary Care) Vital Signs: Last Vital Signs Temp 98.2 F 01/30/25 13:08 Pulse 81 01/30/25 13:08 Resp 16 01/30/25 13:08 BP 136/78 01/30/25 13:08 Pulse Ox 95 01/30/25 13:08 Oxygen Delivery Method Room Air 01/30/25 13:08 BMI result Body Mass Index 36.8 Tobacco/Smoking Status: Tobacco use Status Tobacco use date assessed 11/23/24 01/30/25 13:17 Patient Tobacco Use Status Never used Tobacco 01/30/25 13:17 e-Cigarette/Vaping Use Never Used 01/30/25 13:17 PHQ-9: PHQ-9 Score PHQ-9: Total score 2 01/30/25 13:54 Depression Screening Interpretation: Negative Thrive Assessment: Date of Thrive Assessment Date Thrive assessed 11/23/24 01/30/25 13:17 Currently or been in a relationship where the following occur: No concerns reported Const Other: Obese, alert oriented x3, no acute distress noted ambulatory normal gait HENMT Face and sinus: Yes face symmetric Mouth: Normal oral and palatal mucosa present and moist mucous membranes Eyes General: appearance normal, both eyes and all related structures Neck Neck: Yes normal visual inspection, Yes full ROM, Yes no lymphadenopathy and Yes supple Chest Chest palpation & inspection: normal inspection of the chest Breast/axilla inspection: normal inspection of the breasts Breast/axilla palpation: normal palpation of the breasts Resp Auscultation: clear to auscultation bilaterally Cardio Other: S1-S2 present, regular rate and rhythm Peripheral pulses: Peripheral pulses 2+ throughout GI Inspection: Yes obesity Palpation (GI): Soft to palpation, nontender, no guarding and no masses General: Yes no CVA tenderness Back/Spine/Pelvis Back: no CVA tenderness Skin Other: Varicosities noted in both lower extremities , erythematous patch noted on lower back Neuro General: gait normal, tone normal, moves all extremities, Normal light touch and pain sensation, no focal motor deficits and CN's II-XI intact bilaterally Extrem General: Yes full ROM, Yes no joint enlargement, Yes no clubbing, cyanosis or edema, Yes no pedal edema, Yes no calf tenderness and Yes normal gait Psych Appearance: grossly normal and well kempt Mental Status: mental status grossly normal Speech and movement: Normal speech and movement present Affect: normal affect Attitude: cooperative Thought process: Normal thought process present Thought content: Normal thought content present Coding Level of Care Code Est Pt Level 4 (85898) Diagnoses Impaired fasting glucose R73.01 Obesity (BMI 30-39.9) E66.9 Screening for malignant neoplasm of cervix Z12.4 Additional Codes FLORENCIO-7 Assessment Billing - FLORENCIO-7 Assessment Tool: FLORENCIO-7 Assessment 64610 ([id number]) PHQ-9 - 63657 - PHQ-9 Billing: Yes ([id number]) Assessment & Plan Assessment & Plan (1) Impaired fasting glucose: Code(s): R73.01 - Impaired fasting glucose Category: Medical Plan: Your previous fasting blood sugars were elevated above 100 mg/dL. Impaired glucose metabolism increases the risk for developing diabetes mellitus type 2, as well as heart attack and stroke later on. Lifestyle changes that promotes weight loss, healthy eating habits, and regular exercise are important, and can prevent the progression to diabetes (2) Obesity (BMI 30-39.9): Code(s): E66.9 - Obesity, unspecified Category: Medical Plan: No weight loss seen after starting phentermine, will refer to medical weight management for assistance in getting prove to get a GLP 1 agonist to help with weight loss. (3) Screening for malignant neoplasm of cervix: Code(s): Z12.4 - Encounter for screening for malignant neoplasm of cervix Plan: Referred to OBGYN for her routine Pap and pelvic exam Orders: Referrals Medical Weight Management Referral E66.9 - Obesity, unspecified, R73.01 - Impaired fasting glucose OUTSIDE MEDICAL SALES REPRESENTATIVE Referral Z12.4 - Encounter for screening for malignant neoplasm of cervix
--- OUTSIDE RECORDS SUMMARY | 2025-01-30 13:53 | XMS_ITS | Patient Health Record ---
Author Organization [facility] [address] Address [address] [place] [address] Care Team Providers Care Transformer Builder Name Role Phone JENNIFER PRATER Unavailable Allergies No Known Allergies Reason For Referral No Information Medications Medication SIG (Take, Route, Fr equency, Duration) Notes Start Date End Date Status Phentermine HCl 15 MG 1 capsule Orally O nce a day; Duration: 30 days 03/22/2023 Active Problems Problem Type SNOMED Code ICD Code Onset Dates Problem Status W/U Status Risk Notes Problem Prediabetes (623258680) Prediabetes (R73.03) Active confirmed Problem Obesity (218699889) Obesity (BMI 30-39.9) (E66.9) Active confirmed Problem Body mass index 30.00 to 34.99 (038359312036687 ) BMI 34.0-34.9,adult (Z68.34) Active confirmed Plan Of Treatment No Information Insurance Providers Payer Name Payer Address Payer Phone Subscriber Number Group Number Insured Name Patient Relationship to Insured Coverage Start Date Coverage End Date [employer] [address] [address] [place] [address] [id number] Rahel Mathews Self - patient is the insured 2022 Medications Administered Medication Instructions Date of Administration Dosage Notes MICC B12 INJECTION 03/22/2023
== END 2025-01-30 14:23 | disposition home or self-care (01) ==
LOC: HO.HMCC 13:01
PROVIDERS: PCP Internal Medicine; Visit Provider Internal Medicine
DX: R73.01 Impaired fasting glucose (principal); E66.9 Obesity, unspecified; Z68.36 Body mass index [BMI] 36.0-36.9, adult

== ENCOUNTER → 2025-01-30 13:01 | Outpatient (BNVA) | payer OTHER, SELFPAY | PROVIDERS: PCP Internal Medicine; Visit Provider Internal Medicine | DX: R73.01 Impaired fasting glucose (principal); E66.9 Obesity, unspecified; Z79.899 Other long term (current) drug therapy; Z68.36 Body mass index [BMI] 36.0-36.9, adult | CPT/HCPCS: 96127 ==

== ENCOUNTER 2025-03-22 09:03 | Outpatient (AMB) | payer OTHER, SELFPAY ==
--- NOTE | 2025-03-22 09:02 | MHC.PC.OV ---
Intake Visit Reasons: wgt loss rx Intake Note: Pt is having a telehealth visit and what to discuss another type of wgt loss medication Allergies No Known Allergies Allergy (Unknown, Verified 03/22/25 09:07) Medication List - Last Reconciled 03/22/25 by Skye Cameron MD albuterol sulfate 90 mcg/actuation 2 puffs inhalation Q4-6H PRN mometasone 0.1% 1 appl topical DAILY PRN nystatin-triamcinolone 100,000-0.1 unit/g-% 1 appl topical DAILY 10 days omeprazole 20 mg PO DAILY sumatriptan succinate take 1 tab at onset of headache; if no relief may repeat 1 tab after at least 2 hrs; max = 4 tabs/24 hr orally PRN; Tobacco use date assessed: 03/22/25 Dental Screening Dental Screen Date: 01/30/25 HPI wgt loss rx HPI Details - The patient is a 50-year-old female presenting today for follow-up on her weight loss. - She was prescribed phentermine and has been on the highest dose at 37.5 mg once a day , but stopped taking it after two weeks as she started feeling unwell and states that she felt that she had brain fog and fatigue when she was taking it. 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 - she has been diagnosed to have prediabetes and obstructive sleep apnea, for which weight loss was advised. [facility] Medical History (Updated 03/22/25 @ 09:31 by Skye Cameron MD) Obesity due to excess calories with serious comorbidity Obstructive sleep apnea Rash Obesity (BMI 30.0-34.9) Varicose veins of bilateral lower extremities with pain Family history of diabetes mellitus in father Vitamin D deficiency Pulmonary nodule less than 6 mm determined by computed tomography of lung Facial dermatitis Kidney stones Gallstones without obstruction of gallbladder Ureteral calculus, right Obstruction of right ureteropelvic junction due to stone Impaired fasting glucose Surgical History Hx laparoscopic cholecystectomy (10/14/22) Hx of section Gallstones without obstruction of gallbladder Hx of appendectomy Family History Father Diabetes mellitus HTN (hypertension) Hyperlipidemia Acute myocardial infarction Esophageal cancer Mother Depression Mental health disorder Social History Housing: House Alcohol intake: never Patient Tobacco Use Status: Never used Tobacco e-Cigarette/Vaping Use: Never Used Current occupational status: employed Cognitive needs: No Hearing needs: No Vision needs: No Questionnaire Thrive Questionnaire Date Thrive assessed: 01/30/25 I am a: Patient What is your living situation today?: I have a steady place to live Within the past 12 months, did the food you bought not last and you didn't have the money to get more?: Never true Within the past 12 months, did you worry whether your food would run out before you got money to buy more?: Never true Do you have trouble paying for medicines?: No Do you have trouble getting transportation to medical appointments?: No Do you have trouble paying your heating and electricity bill?: No Do you have trouble taking care of your child, family member or friend?: No Do you have trouble with day-to-day activities such as bathing, preparing meals, shopping, managing finances, etc.?: No Are you currently unemployed and looking for a job?: No Are you interested in more education?: No Please select the resources that you would like help with: None Currently or been in a relationship where the following occur: No concerns reported THRIVE Score: 0 FLORENCIO-7 AMB Questionnaire FLORENCIO-7 Date FLORENCIO - 7 assessed: 01/30/25 Source: Developed by Drs. Pj Balderas, Gisel De Jesus, Agustin Roa and colleagues, with an educational richelle from [employer]. Review of Systems Const Denies body aches, Denies headache(s) and Denies malaise Eyes Denies change in vision ENT Denies dizziness and Denies headache(s) Card Denies chest pain, Denies lightheadedness and Denies dyspnea Resp Denies cough and Denies dyspnea GI Denies abdominal pain, Denies change in bowel habits and Denies heartburn Reports no additional complaints Musc Reports stiffness Skin/Breast Denies breast pain, Denies breast mass and Denies lesions Neuro Denies dizziness and Denies headache(s) Psych Reports no additional complaints Endo Reports no additional complaints Everette/Lymph Reports no additional complaints Aller/Immun Reports no additional complaints Physical exam (Primary Care) Tobacco/Smoking Status: Tobacco use Status Tobacco use date assessed 03/22/25 03/22/25 09:02 Patient Tobacco Use Status Never used Tobacco 03/22/25 09:02 e-Cigarette/Vaping Use Never Used 03/22/25 09:02 Thrive Assessment: Date of Thrive Assessment Date Thrive assessed 01/30/25 03/22/25 09:02 Currently or been in a relationship where the following occur: No concerns reported Telehealth Telehealth Telehealth Platform: [employer] Location of provider rendering services: practice address Location of patient: address on file Patient Identification confirmed using: Name, : Yes Telehealth method: video Patient verbally consented to treatment: Yes Patient verbally consented to billing insurance company: Yes Patient informed of any privacy concerns related to visit: Yes Minutes spent on Phone/Video with Pt.: 15 Coding Level of Care Code Tele Est Pt Level 4 (75771) Diagnoses Obesity due to excess calories with serious comorbidity E66.09 Impaired fasting glucose R73.01 Obstructive sleep apnea G47.33 Assessment & Plan Assessment & Plan (1) Obesity due to excess calories with serious comorbidity: Code(s): E66.09 - Other obesity due to excess calories Category: Medical (2) Impaired fasting glucose: Code(s): R73.01 - Impaired fasting glucose Category: Medical (3) Obstructive sleep apnea: Code(s): G47.33 - Obstructive sleep apnea (adult) (pediatric) Category: Medical Plan She has prediabetes and obstructive sleep apnea recommended weight loss, has been tried on phentermine but stopped taking it due to development of side effects. She has been unsuccessful with losing any significant amount of weight with trial of phentermine in addition to exercising regularly with a customer service trainer and adherence to a healthy diet for more than six-months now.. Prescription started for Zepbound, pending insurance approval. Discussed the importance of continued lifestyle modifications for managing prediabetes and obstructive sleep apnea. Medications: New tirzepatide (weight loss) (Zepbound) for 4 weeks 2.5 mg (0.5 mL) subcut QWEEK 2 mL 1RF E66.09 - Other obesity due to excess calories, G47.33 - Obstructive sleep apnea (adult) (pediatric), R73.01 - Impaired fasting glucose
--- OUTSIDE RECORDS SUMMARY | 2025-03-22 09:49 | XMS_ITS | Patient Health Record ---
Author Organization [facility] [address] Address [address] [place] [address] Care Team Providers Care Plant Protection Officer Name Role Phone JENNIFER PRATER Unavailable Allergies No Known Allergies Reason For Referral No Information Medications Medication SIG (Take, Route, Fr equency, Duration) Notes Start Date End Date Status Phentermine HCl 15 MG 1 capsule Orally O nce a day; Duration: 30 days 03/22/2023 Active Problems Problem Type SNOMED Code ICD Code Onset Dates Problem Status W/U Status Risk Notes Problem Prediabetes (726474122) Prediabetes (R73.03) Active confirmed Problem Obesity (141302454) Obesity (BMI 30-39.9) (E66.9) Active confirmed Problem Body mass index 30.00 to 34.99 ([id number] ) BMI 34.0-34.9,adult (Z68.34) Active confirmed Plan Of Treatment No Information Insurance Providers Payer Name Payer Address Payer Phone Subscriber Number Group Number Insured Name Patient Relationship to Insured Coverage Start Date Coverage End Date [employer] [address] [address] [place] [address] [id number] Rahel Mathews Self - patient is the insured 2022 Medications Administered Medication Instructions Date of Administration Dosage Notes MICC B12 INJECTION 03/22/2023
--- OUTSIDE RECORDS SUMMARY | 2025-03-22 09:49 | XMS_ITS | Clinical Summary ---
Author Organization [address] [facility] Address [address] [place] [address] Phone Care Team Providers Care Zoogler Name Role Phone Skye Cameron MD Primary Care Provider Social History Tobacco Use Types Packs/Day Years Used Date Smoking Tobacco: Never Assessed Comments Unknown Sex and Gender Information Value Date Recorded Sex Assigned at Not on file Legal Sex Female 1:11 PM EDT Gender Identity Not on file Sexual Orientation Not on file Plan of Treatment Upcoming Encounters Date Type Department Care Team ([facility] st Contact Info) Description 10/09/2025 2:30 PM EDT Office Visit Bariatric Surgery [facility] [address] [facility] [address] [facility] [address] [place] [address] Shalini Viera PA [facility] [place] [address] Health Maintenance Due Date Last Done Comments Breast Cancer Screening 1973 DTaP,Tdap,and Td Vaccines (1 - Tdap) 1992 Hepatitis B Vaccines (1 of 3 - 19+ 3-dose series) 1992 Cervical Cancer Screening: P ap Smear 1994 Pneumococcal Vaccine: 50+ Ye ars (1 of 1 - PCV) 2023 Zoster Vaccines (1 of 2) 2023 Depression Screening 07/18/2024 Colorectal Cancer Screening: Colonoscopy 02/06/2025 HIV Screening 02/06/2025 Hepatitis C Screening 02/06/2025 Social Influencers of Health Screening 02/06/2025 COVID-19 Vaccine (1 - 2023-2 5 season) 2025 Influenza Vaccine (#1) 2025 HIB Vaccines Aged Out No longer eligi ble based on patient's age to complete this topic HPV Vaccines Aged Out No longer eligi ble based on patient's age to complete this topic Hepatitis A Vaccines Aged Out No long er eligible based on patient's age to complete this topic IPV Vaccines Aged Out No longer eligi ble based on patient's age to complete this topic MMR Vaccines Aged Out No longer eligi ble based on patient's age to complete this topic Meningococcal ACWY Vaccine Aged Out N o longer eligible based on patient's age to complete this topic Meningococcal B Vaccine Aged Out No l onger eligible based on patient's age to complete this topic RSV Immunization Patients Un antony 20 months Aged Out No longer eligible b ased on patient's age to complete this topic Varicella Vaccines Aged Out No longer eligible based on patient's age to complete this topic Insurance [employer] Care Teams Zoogler Relationship Specialty Start Date End Date Skye Cameron MD [address] [place] [address] PCP - General Internal Medicine 02/05/25
== END 2025-03-22 11:58 | disposition home or self-care (01) ==
LOC: HO.HMCC 09:03
PROVIDERS: PCP Internal Medicine; Visit Provider Internal Medicine
DX: R73.01 Impaired fasting glucose (principal); E66.09 Other obesity due to excess calories; G47.33 Obstructive sleep apnea (adult) (pediatric)

== ENCOUNTER 2025-03-28 08:51 | Outpatient (REF) | payer OTHER, SELFPAY ==
[2025-03-28 13:35] LABS: Total Hemoglobin (HGBA1C) 3659.5298 umol/L
[2025-03-28 14:09] LABS: Alanine Aminotransferase 85 U/L (0-31); Aspartate Amino Transferase 72 U/L (5-31); Cholesterol 202 mg/dL (<200); HDL Cholesterol 45 mg/dL (>40); Triglycerides 83 mg/dL (<150)
[2025-03-28 14:25] LABS: Folate 9.2 ng/mL (> or = 4.0); Vitamin B12 436 pg/mL (200-900)
== END 2025-03-28 08:52 | disposition home or self-care (01) ==
LOC: HO.HMGCLDS 08:51
PROVIDERS: PCP Internal Medicine; Visit Provider Internal Medicine
DX: Z00.01 Encounter for general adult medical examination with abnormal findings (principal); G47.33 Obstructive sleep apnea (adult) (pediatric); R53.83 Other fatigue; R73.01 Impaired fasting glucose; E66.811 Obesity, class 1; E66.09 Other obesity due to excess calories; R74.8 Abnormal levels of other serum enzymes; I83.813 Varicose veins of bilateral lower extremities with pain; K21.01 Gastro-esophageal reflux disease with esophagitis, with bleeding; H00.014 Hordeolum externum left upper eyelid; Z68.37 Body mass index [BMI] 37.0-37.9, adult
CPT/HCPCS: 36415; 80061; 82306; 82607; 82746; 82947; 83036; 84443; 84450; 84460

== ENCOUNTER 2025-03-28 08:51 | Outpatient (AMB) | payer OTHER, SELFPAY ==
[2025-03-28 09:13] VITALS: BP 124/86; PULSE 84; RESP 16; TEMP 36.7; O2SAT 94; BMI 37.6
--- NOTE | 2025-03-28 09:13 | A.OFFPC_ITS ---
Vital Signs 03/28/25 09:13 Height 5 ft 3 in Weight 212 lb BMI 37.6 BP 124/86 Blood Pressure Location Lt brachial Position Sitting Respiration 16 Pulse 84 Pulse Source Pulse Oximeter Temp 98.0 F Temp Source Oral Pulse Oximetry (%) 94 Oxygen Delivery Method Room Air Intake Visit Reasons: Annual PE Intake Note: Pt is here today for PE Allergies No Known Allergies Allergy (Unknown, Verified 03/28/25 09:34) Medication List - Last Reviewed 03/28/25 by Kirsten Claire CMA albuterol sulfate 90 mcg/actuation 2 puffs inhalation Q4-6H PRN mometasone 0.1% 1 appl topical DAILY PRN nystatin-triamcinolone 100,000-0.1 unit/g-% 1 appl topical DAILY 10 days omeprazole 20 mg PO DAILY sumatriptan succinate take 1 tab at onset of headache; if no relief may repeat 1 tab after at least 2 hrs; max = 4 tabs/24 hr orally PRN; Tobacco use date assessed: 03/28/25 Dental Screening Dental Screen Date: 01/30/25 HPI Annual PE HPI Details 50-year-old lady with history of obesity , migraine headache, obstructive sleep apnea and prediabetes, here today for her physical exam. She is up-to-date with her screening mammogram, last done earlier this year, with last cervical cancer screening and pelvic exam done in 2021 with negative findings. Already has an appointment scheduled to see OBGYN at [place] in August 2025 for her repeat Pap and pelvic exam. Has never had a colon cancer screening done. Complains of slight itching and swelling in left upper eyelid which has started couple of days ago. Denies any change in vision, no increased tearing. [facility] Medical History (Updated 03/28/25 @ 09:45 by Skye Cameron MD) Elevated liver enzymes Obesity due to excess calories with serious comorbidity Obstructive sleep apnea Rash Obesity (BMI 30.0-34.9) Varicose veins of bilateral lower extremities with pain Family history of diabetes mellitus in father Vitamin D deficiency Pulmonary nodule less than 6 mm determined by computed tomography of lung Facial dermatitis Kidney stones Gallstones without obstruction of gallbladder Ureteral calculus, right Obstruction of right ureteropelvic junction due to stone Impaired fasting glucose Surgical History Hx laparoscopic cholecystectomy (10/14/22) Hx of section Gallstones without obstruction of gallbladder Hx of appendectomy Family History Father Diabetes mellitus HTN (hypertension) Hyperlipidemia Acute myocardial infarction Esophageal cancer Mother Depression Mental health disorder Social History Housing: House Alcohol intake: never Patient Tobacco Use Status: Never used Tobacco e-Cigarette/Vaping Use: Never Used Current occupational status: employed Cognitive needs: No Hearing needs: No Vision needs: No Questionnaire PHQ-9 Over the last 2 weeks, how often have you been bothered by any of the following problems? Depression Screening Interpretation: Negative Depression Screening Done: Yes Source: Developed by Drs. Pj Balderas, Gisel De Jesus, Agustin Roa and colleagues, with an educational richelle from [employer]. Thrive Questionnaire Date Thrive assessed: 01/30/25 I am a: Patient What is your living situation today?: I have a steady place to live Within the past 12 months, did the food you bought not last and you didn't have the money to get more?: Never true Within the past 12 months, did you worry whether your food would run out before you got money to buy more?: Never true Do you have trouble paying for medicines?: No Do you have trouble getting transportation to medical appointments?: No Do you have trouble paying your heating and electricity bill?: No Do you have trouble taking care of your child, family member or friend?: No Do you have trouble with day-to-day activities such as bathing, preparing meals, shopping, managing finances, etc.?: No Are you currently unemployed and looking for a job?: No Are you interested in more education?: No Please select the resources that you would like help with: None Currently or been in a relationship where the following occur: No concerns reported THRIVE Score: 0 FLORENCIO-7 AMB Questionnaire FLORENCIO-7 Date FLORENCIO - 7 assessed: 01/30/25 Source: Developed by Drs. Pj Balderas, Gisel De Jesus, Agustin Roa and colleagues, with an educational richelle from [employer]. Review of Systems Const Denies body aches, Denies headache(s), Denies malaise and Reports weight gain Eyes Reports as per HPI and Denies change in vision ENT Denies dizziness and Denies headache(s) Card Denies chest pain, Denies lightheadedness and Denies dyspnea Resp Denies cough and Denies dyspnea GI Denies abdominal pain, Denies change in bowel habits and Denies heartburn Reports no additional complaints Musc Reports stiffness Skin/Breast Denies breast pain, Denies breast mass and Denies lesions Neuro Denies dizziness and Denies headache(s) Psych Reports no additional complaints Endo Reports no additional complaints Everette/Lymph Reports no additional complaints Aller/Immun Reports no additional complaints Physical exam (Primary Care) Vital Signs: Last Vital Signs Temp 98.0 F 03/28/25 09:13 Pulse 84 03/28/25 09:13 Resp 16 03/28/25 09:13 BP 124/86 03/28/25 09:13 Pulse Ox 94 03/28/25 09:13 Oxygen Delivery Method Room Air 03/28/25 09:13 BMI result Body Mass Index 37.6 Tobacco/Smoking Status: Tobacco use Status Tobacco use date assessed 03/28/25 03/28/25 09:21 Patient Tobacco Use Status Never used Tobacco 03/28/25 09:14 e-Cigarette/Vaping Use Never Used 03/28/25 09:14 Depression Screening Interpretation: Negative Thrive Assessment: Date of Thrive Assessment Date Thrive assessed 01/30/25 03/28/25 09:14 Currently or been in a relationship where the following occur: No concerns reported Const Other: Obese, alert oriented x3, no acute distress noted ambulatory normal gait [facility] Face and sinus: Yes face symmetric Mouth: Normal oral and palatal mucosa present and moist mucous membranes Eyes Other: Mild swelling and erythema in left upper eyelid General: appearance normal, both eyes and all related structures Conjunctivae: conjunctivae normal Sclerae: sclerae normal Pupils: Equal, round and reactive pupils present EOM: EOMs intact bilaterally Neck Neck: Yes normal visual inspection, Yes full ROM, Yes no lymphadenopathy and Yes supple Chest Chest palpation & inspection: normal inspection of the chest Breast/axilla inspection: normal inspection of the breasts Breast/axilla palpation: normal palpation of the breasts Resp Auscultation: clear to auscultation bilaterally Cardio Other: S1-S2 present, regular rate and rhythm Peripheral pulses: Peripheral pulses 2+ throughout GI Inspection: Yes obesity Palpation (GI): Soft to palpation, nontender, no guarding and no masses General: Yes no CVA tenderness Back/Spine/Pelvis Back: no CVA tenderness Skin Other: Varicosities noted in both lower extremities Neuro General: gait normal, tone normal, moves all extremities, Normal light touch and pain sensation, no focal motor deficits and CN's II-XI intact bilaterally Cranial nerves: Yes Equal, round and reactive pupils present Extrem General: Yes full ROM, Yes no joint enlargement, Yes no clubbing, cyanosis or edema, Yes no pedal edema, Yes no calf tenderness and Yes normal gait Psych Appearance: grossly normal and well kempt Mental Status: mental status grossly normal Speech and movement: Normal speech and movement present Affect: normal affect Attitude: cooperative Thought process: Normal thought process present Thought content: Normal thought content present Coding Level of Care Code Est Pt Prev Care 40-64y(39526) Diagnoses Annual visit for general adult medical examination with abnormal findings Z00.01 Impaired fasting glucose R73.01 Obstructive sleep apnea G47.33 Fatigue, unspecified type R53.83 Fatigue type: unspecified Obesity (BMI 30.0-34.9) E66.811 Varicose veins of bilateral lower extremities with pain I83.813 Gastroesophageal reflux disease with esophagitis and hemorrhage K21.01 Esophagitis presence: with esophagitis Esophagitis bleeding: with hemorrhage Hordeolum externum of left upper eyelid H00.014 Laterality: left Eyelid: upper Assessment & Plan Assessment & Plan (1) Annual visit for general adult medical examination with abnormal findings: Code(s): Z00.01 - Encounter for general adult medical examination with abnormal findings Plan: Will check appropriate labs. Recommended dental visit every 6 months and regular eye exams, at least every 2 years. Take adequate calcium in diet and vitamin-D 3 at 2000 IU per cap once a day, in addition to weight-bearing exercises to help maintain good muscle tone and weight control. Instructed to do self-breast exam, and continue to get yearly mammogram, currently up-to-date. Has an appointment with OBGYN at [place] in August 2025 for her routine Pap and pelvic exam.. Cologuard test ordered . Reminded to get her flu vaccine and updated COVID booster (2) Impaired fasting glucose: Code(s): R73.01 - Impaired fasting glucose Category: Medical Plan: Your previous fasting blood sugars were elevated above 100 mg/dL. Ordered a repeat fasting glucose and hemoglobin A1c level. Impaired glucose metabolism increases the risk for developing diabetes mellitus type 2, as well as heart attack and stroke later on. Lifestyle changes that promotes weight loss, healthy eating habits, and regular exercise are important, and can prevent the progression to diabetes (3) Obstructive sleep apnea: Code(s): G47.33 - Obstructive sleep apnea (adult) (pediatric) Category: Medical Plan: Weight loss recommended, lie on her side when sleeping (4) Fatigue: Code(s): R53.83 - Other fatigue Qualifiers: Fatigue type: unspecified Qualified Code(s): R53.83 - Other fatigue Plan: CBC, vitamin B12, vitamin-D, TSH with reflex free T4 and fasting glucose ordered (5) Obesity (BMI 30.0-34.9): Code(s): E66.811 - Obesity, class 1 Category: Medical Plan: Prescription sent for Mounjaro 2.5 mg injected subcutaneously once a week. Reinforced importance of adhering to recommended healthy diet and regular exercise. Discussed possible side effects medication (6) Varicose veins of bilateral lower extremities with pain: Comment: Sees Dr. Alessandro Vivas Code(s): I83.813 - Varicose veins of bilateral lower extremities with pain Category: Medical Plan: Followed by vascular surgeon, wears travel compression socks as much as possible if she is going to be on her feet for prolonged periods of time (7) GERD (gastroesophageal reflux disease): Code(s): K21.9 - Gastro-esophageal reflux disease without esophagitis Category: Medical Qualifiers: Esophagitis presence: with esophagitis Esophagitis bleeding: with hemorrhage Qualified Code(s): K21.01 - Gastro-esophageal reflux disease with esophagitis, with bleeding Plan: Currently taking omeprazole 20 mg daily (8) External hordeolum: Code(s): H00.019 - Hordeolum externum unspecified eye, unspecified eyelid Qualifiers: Laterality: left Eyelid: upper Qualified Code(s): H00.014 - Hordeolum externum left upper eyelid Plan: Prescription sent for erythromycin ophthalmic ointment, to be applied sparingly to affected area daily for at least 7 days. Warm compresses over affected area for 15 minutes twice a day as needed Orders: Orders Vitamin B12 and Folate 03/28/25 E66.09 - Other obesity due to excess calories, G47.33 - Obstructive sleep apnea (adult) (pediatric), R53.83 - Other fatigue, R73.01 - Impaired fasting glucose, R74.8 - Abnormal levels of other serum enzymes Vitamin D 25-OH Total 03/28/25 E66.09 - Other obesity due to excess calories, G47.33 - Obstructive sleep apnea (adult) (pediatric), R53.83 - Other fatigue, R73.01 - Impaired fasting glucose, R74.8 - Abnormal levels of other serum enzymes Alanine Aminotransferase 03/28/25 E66.09 - Other obesity due to excess calories, G47.33 - Obstructive sleep apnea (adult) (pediatric), R53.83 - Other fatigue, R73.01 - Impaired fasting glucose, R74.8 - Abnormal levels of other serum enzymes Aspartate Amino Transferase 03/28/25 E66.09 - Other obesity due to excess calories, G47.33 - Obstructive sleep apnea (adult) (pediatric), R53.83 - Other fatigue, R73.01 - Impaired fasting glucose, R74.8 - Abnormal levels of other serum enzymes TSH reflex Free T4 03/28/25 E66.09 - Other obesity due to excess calories, G47.33 - Obstructive sleep apnea (adult) (pediatric), R53.83 - Other fatigue, R73.01 - Impaired fasting glucose, R74.8 - Abnormal levels of other serum enzymes Lipid Panel 03/28/25 E66.09 - Other obesity due to excess calories, G47.33 - Obstructive sleep apnea (adult) (pediatric), R53.83 - Other fatigue, R73.01 - Impaired fasting glucose, R74.8 - Abnormal levels of other serum enzymes Glucose Fasting 03/28/25 E66.09 - Other obesity due to excess calories, G47.33 - Obstructive sleep apnea (adult) (pediatric), R53.83 - Other fatigue, R73.01 - Impaired fasting glucose, R74.8 - Abnormal levels of other serum enzymes Hemoglobin A1c 03/28/25 E66.09 - Other obesity due to excess calories, G47.33 - Obstructive sleep apnea (adult) (pediatric), R53.83 - Other fatigue, R73.01 - Impaired fasting glucose, R74.8 - Abnormal levels of other serum enzymes Referrals Cologuard Test Z12.11 - Encounter for screening for malignant neoplasm of colon, Z12.12 - Encounter for screening for malignant neoplasm of rectum Medications: New tirzepatide (Mounjaro) for 4 weeks 2.5 mg (0.5 mL) subcut QWEEK 2 mL 1RF E66.811 - Obesity, class 1, G47.33 - Obstructive sleep apnea (adult) (pediatric), R73.01 - Impaired fasting glucose erythromycin 1 appl ophthalmic-Left DAILY 3.5 grams 0RF 7 days
--- OUTSIDE RECORDS SUMMARY | 2025-03-28 09:59 | XMS_ITS | Clinical Summary ---
Author Organization [address] [facility] Address [address] [place] [address] Phone Care Team Providers Care Radio Time Buyer Name Role Phone Skye Cameron MD Primary Care Provider Social History Tobacco Use Types Packs/Day Years Used Date Smoking Tobacco: Never Assessed Comments Unknown Sex and Gender Information Value Date Recorded Sex Assigned at Not on file Legal Sex Female 1:11 PM EDT Gender Identity Not on file Sexual Orientation Not on file Plan of Treatment Upcoming Encounters Date Type Department Care Team ([facility] st Contact Info) Description 10/09/2025 2:30 PM EDT Office Visit Bariatric Surgery [facility] [address] [facility] [address] [place] [address] Shalini Viera PA [facility] [place] [address] Health Maintenance Due Date Last [...] complete this topic Insurance [employer] Care Teams Radio Time Buyer Relationship Specialty Start Date End Date Skye Cameron MD [address] [place] [address] PCP - General Internal Medicine 02/05/25
--- OUTSIDE RECORDS SUMMARY | 2025-03-28 09:59 | XMS_ITS | Patient Health Record ---
Author Organization [facility] [address] Address [address] [place] [address] Care Team Providers Care International Representative Name Role Phone JENNIFER PRATER Unavailable Allergies No Known Allergies Reason For Referral No Information Medications Medication SIG (Take, Route, Fr equency, Duration) Notes Start Date End Date Status Phentermine HCl 15 MG 1 capsule Orally O nce a day; Duration: 30 days 03/22/2023 Active Problems Problem Type SNOMED Code ICD Code Onset Dates Problem Status W/U Status Risk Notes Problem Prediabetes (472811398) Prediabetes (R73.03) Active confirmed Problem Obesity (597341163) Obesity (BMI 30-39.9) (E66.9) Active confirmed Problem Body mass index 30.00 to 34.99 ([id number] ) BMI 34.0-34.9,adult (Z68.34) Active confirmed Plan Of Treatment No Information Insurance Providers Payer Name Payer Address Payer Phone Subscriber Number Group Number Insured Name Patient Relationship to Insured Coverage Start Date Coverage End Date [employer] [address] [address] [place] [address] [id number] [phone] Rahel Mathews Self - patient is the insured 2022 Medications Administered Medication Instructions Date of Administration Dosage Notes MICC B12 INJECTION 03/22/2023
== END 2025-03-28 10:00 | disposition home or self-care (01) ==
LOC: HO.HMCC 08:52
PROVIDERS: PCP Internal Medicine; Visit Provider Internal Medicine
DX: Z00.01 Encounter for general adult medical examination with abnormal findings (principal); E66.811 Obesity, class 1; Z68.37 Body mass index [BMI] 37.0-37.9, adult; R73.01 Impaired fasting glucose; G47.33 Obstructive sleep apnea (adult) (pediatric); R53.83 Other fatigue; I83.813 Varicose veins of bilateral lower extremities with pain; K21.01 Gastro-esophageal reflux disease with esophagitis, with bleeding; H00.014 Hordeolum externum left upper eyelid